=== PATIENT | female | born 1960 | race Caucasian/White ===

== ENCOUNTER → 2024-03-10 13:07 | Outpatient (REF) | payer BC, SELFPAY | LOC: HWWDC 13:07 | PROVIDERS: ATTENDING PHYSICIAN Internal Medicine | DX: Z12.31 Encounter for screening mammogram for malignant neoplasm of breast (principal) | CPT/HCPCS: 77063; 77067 ==

== ENCOUNTER → 2024-04-26 13:09 | Outpatient (REF) | payer BC, SELFPAY | LOC: RAD 13:09 | PROVIDERS: ATTENDING PHYSICIAN Internal Medicine | DX: M25.551 Pain in right hip (principal); M25.552 Pain in left hip; M54.40 Lumbago with sciatica, unspecified side | CPT/HCPCS: 72110; 73523 ==

== ENCOUNTER → 2024-06-21 12:31 | Outpatient (REF) | payer BC, SELFPAY ==
[2024-06-21 13:25] LABS: % Basophils 0.8 % (0-2); % Eosinophils 1.9 % (0-6); % Immature Granulocytes 0.2 % (0-0.5); % Lymphocytes 27.9 % (20.5-51.1); % Monocytes 8.5 % (1.7-9.3); % Neutrophils 60.7 % (42.2-75.2); Absolute Basophils 0.1 10^3/uL (0-0.2); Absolute Eosinophils 0.1 10^3/uL (0-0.7); Absolute Lymphocytes 1.7 10^3/uL (1.2-3.4); Absolute Monocytes 0.5 10^3/uL (0.1-0.6); Absolute Neutrophils 3.8 10^3/uL (1.4-6.5); Hematocrit 32.3 % (37.0-47.0); Mean Corp Hgb Conc. 34.1 g/dL (33.0-37.0); Mean Corpuscular Hgb 34.1 pg (27.0-31.0); Nucleated Red Blood Cells % 0 %; Platelet Count 231 10^3/uL (130-400); Red Blood Cell Count 3.23 10^6/uL (4.20-5.40); Red Cell Dist. Width 13.1 % (11.5-14.5); White Blood Cell Count 6.2 10^3/uL (4.8-10.8)
[2024-06-21 14:00] LABS: Blood Urea Nitrogen 15 mg/dl (7-17); Calcium 10.4 mg/dl (8.4-10.2); Carbon Dioxide 25 mmol/L (22-30); Chloride 100 mmol/L (98-107); Glucose 85 mg/dl (70-99); Potassium 4.8 mmol/L (3.5-5.1); Sodium 137 mmol/L (135-145); eGFR > 60.00
== END ==
LOC: REG 12:31
PROVIDERS: ATTENDING PHYSICIAN Specialist; FAMILY PHYSICIAN Internal Medicine
DX: Z01.818 Encounter for other preprocedural examination (principal)
CPT/HCPCS: 36415; 80048; 85025; 93005

== ENCOUNTER → 2024-09-27 12:30 | Outpatient (REF) | payer BC, SELFPAY ==
[2024-09-27 13:53] LABS: % Basophils 0.6 % (0-2); % Eosinophils 1.3 % (0-6); % Immature Granulocytes 0.3 % (0-0.5); % Lymphocytes 21.4 % (20.5-51.1); % Monocytes 11.1 % (1.7-9.3); % Neutrophils 65.3 % (42.2-75.2); Absolute Eosinophils 0.1 10^3/uL (0-0.7); Absolute Lymphocytes 1.5 10^3/uL (1.2-3.4); Absolute Monocytes 0.8 10^3/uL (0.1-0.6); Absolute Neutrophils 4.6 10^3/uL (1.4-6.5); Hematocrit 34.9 % (37.0-47.0); Hemoglobin 11.8 g/dL (12.0-16.0); Mean Corp Hgb Conc. 33.8 g/dL (33.0-37.0); Mean Corpuscular Hgb 34.3 pg (27.0-31.0); Mean Corpuscular Volume 101.5 fL (81.0-99.0); Mean Platelet Volume 9.4 fL (7.4-10.4); Nucleated Red Blood Cells % 0 %; Platelet Count 258 10^3/uL (130-400); Red Blood Cell Count 3.44 10^6/uL (4.20-5.40); Red Cell Dist. Width 12.6 % (11.5-14.5)
[2024-09-27 14:34] LABS: Blood Urea Nitrogen 14 mg/dl (7-17); Calcium 10.8 mg/dl (8.4-10.2); Carbon Dioxide 27 mmol/L (22-30); Chloride 99 mmol/L (98-107); Glucose 96 mg/dl (70-99); Potassium 5.1 mmol/L (3.5-5.1); Sodium 136 mmol/L (135-145); eGFR > 60.00
== END ==
LOC: REG 12:30
PROVIDERS: ATTENDING PHYSICIAN Specialist; FAMILY PHYSICIAN Internal Medicine
DX: Z01.818 Encounter for other preprocedural examination (principal)
CPT/HCPCS: 36415; 80048; 85025

== ENCOUNTER 2025-05-31 14:03 | Inpatient (IN) | payer BC, SELFPAY ==
[2025-05-30] VITALS (18 sets, daily range): BP systolic 118–207; BP diastolic 78–139; BMI 29.1
--- NOTE | 2025-05-30 13:14 | ED.GENMED ---
History of Present Illness
<Paola Greenwood PA-C - Last Filed: 05/30/25 17:15>
General
Chief Complaint: Fall
Source: patient and spouse
Exam Limitations: none
Time Seen by Provider: 05/30/25 12:44
History of Present Illness
History of Present Illness:
64yoF with a history of hypertension presenting with her for evaluation after a fall last night. Patient was walking in the middle of the night to go to the bathroom. Instead of making a right, she made a left and fell down 13 steps. She
believes she hit her head but did not lose consciousness. Patient has some abrasions in the right elbow but otherwise denies any injuries from the fall. Patient has been having frequent falls over the past 2 months. She has fallen about 6x since
then. She attributes her falls to trouble with her vision. She is having trouble with depth perception in her vision. She denies any blurred vision, photophobia, visual field cuts. Patient also reports vomiting in the mornings for the past few
weeks. She states she wakes up with a bunch of phlegm in the back of her throat. Symptoms seem to improve throughout the day but she is eating much less due to this.
Phy Exam
<Paola Greenwood PA-C - Last Filed: 05/30/25 17:15>
General Physical Exam
General Presentation: well appearing and no apparent distress
General age: appears stated age
General Skin: warm and dry
General Habitus: normal
General Mental: alert
ENT Exam
ENT Exam: TM's normal and normocephalic
Eye Exam
Eye Exam: PERRL, EOMI, conjunctiva normal, visual mccray normal and other (PERRL. EOMs are are intact although eye movement seems delayed.)
Cardiovascular Exam
Cardiovascular Exam: regular rate/rhythm
Pulmonary Exam
Pulmonary Exam: lungs clear, no respiratory distress, no rales, chest non tender, no crackles and no rhonchi
Neurological Exam
Neurological Exam: alert, no motor deficits and speech normal
[place] Coma Scale
Eye Opening: Spontaneous
Verbal Response: Oriented
Motor Response: Obeys Commands
GCS Total Score: 15
Skin Exam
Skin Exam: normal color, warm/dry and other (R elbow abrasions)
Psychiatric Exam
Psychiatric Exam: normal mood/affect
Course
<Paola Greenwood PA-C - Last Filed: 05/30/25 17:15>
Orders/Labs/Results
Orders:
Orders
05/30/25 13:09
CT Head W/o Iv Contrast Urgent
Comment:
Reason For Exam: frequent falls, visual disturbance
0.9% Sodium Chloride 1000 ml [Nss] 1,000 ml IV BOLUS
05/30/25 13:16
Alcohol Urgent
C-Reactive Protein Urgent
Comment: ADD ON
Complete Blood Count/With Diff Urgent
Comprehensive Metabolic Panel Urgent
Erythrocyte Sed Rate Urgent
Comment: ADD ON
Magnesium Urgent
Comment: ADD ON
Phosphorus Urgent
Comment: ADD ON
TSH Reflex To Free T4 Urgent
Comment: ADD ON
05/30/25 13:54
NEUROLOGY CONSULT Urgent
Consulting Provider: Godwin Matthew
Was physician already notified: Yes
05/30/25 14:17
Potassium Chloride [KCl] 40 meq PO NOW STA
05/30/25 14:37
Add On- LAB Urgent
Tests Added?: ESR, CRP, Alcohol, TSH Reflex to Free T4
05/30/25 14:53
CT Head & Neck Angio W/wo IV Routine
Comment:
Reason For Exam: stenosis
MR Brain W/o & With Contrast Routine
Comment:
Reason For Exam: PRES
Recent pill cam endoscopy?: No
05/30/25 14:58
NIH Stroke Scale As Directed
Directions: Per protocol
Comment: Please until order to stop
05/30/25 15:04
Add On- LAB Urgent
Tests Added?: mag, phos
EKG [Electrocardiogram (*1)] Urgent
Reason for Study: Hypertension, Benign
05/30/25 15:28
Urine Drug Abuse Screen Routine
Date Specimen was Collected: 05/30/25
Time Specimen was Collected: 14:58
05/30/25 15:34
Admit/Transfer Patient As Directed
Co-Sign Provider:
Level of Care: Observation services
Assign to:: Telemetry
Physician / Group: Krystal Rosenthal
Diagnosis: posterior reversible encephalopathy syndrome, hypokalemia, transaminitis
Reason for Telemetry: CVA/TIA
Date to Stop Telemetry: 06/02/25
Time to Stop Telemetry: 11:00
PRN Pain Medication Management As Directed
May give lesser potent ordered pain med per pt: Yes
preference::
Protocol:: Medication orders for pain may be administered in a
manner that supports deferring to patient preference
when the pt is:
- Requesting an ordered lesser potent pain medication.
Least to most potent pain medications are defined
as: acetaminophen < NSAID < tramadol < opioids
(morphine, oxycodone, hydromorphone).
- Requesting a lesser dose of the same medication IF
ORDERED.
- Requesting a less intrusive route of administration
if both routes are prescribed by the provider (PO <
IV).
05/30/25 15:36
Code Status As Directed
Resuscitation Status: Do not resuscitate
Reached after discussion with pt or family/Healthcare POA: Yes
Decision communicated with: patient and spouse
DNR Bracelet Application ONCE
05/30/25 15:43
Neurological Checks As Directed
Frequency: Per unit guidelines
05/30/25 16:00
Thiamine HCl [Vitamin B1] 100 mg PO DAILY
06/02/25 11:00
DC Protocol for Telemetry ONCE
Abnormal Lab Results
05/30/25
13:16
RBC 3.35 L 10^6/uL
(4.20-5.40)
Hgb 11.3 L g/dL
(12.0-16.0)
Hct 33.5 L %
(37.0-47.0)
MCV 100.0 H fL
(81.0-99.0)
MCH 33.7 H pg
(27.0-31.0)
Absolute Lymphs (auto) 0.7 L 10^3/uL
(1.2-3.4)
Absolute Monos (auto) 0.7 H 10^3/uL
(0.1-0.6)
Immature Gran % 0.6 H %
(0-0.5)
Lymphocytes % 12.6 L %
(20.5-51.1)
Monocytes % 14.3 H %
(1.7-9.3)
Potassium 3.3 L mmol/L
(3.5-5.1)
Chloride 97 L mmol/L
(98-107)
Magnesium 1.3 L mg/dl
(1.6-2.3)
Total Bilirubin 1.5 H mg/dl
(0.2-1.3)
AST 146 H U/L
(14-36)
ALT 69 H U/L
(0-35)
Alkaline Phosphatase 151 H U/L
(38-126)
C-Reactive Protein 26.40 H mg/L
(0.0-10.00)
05/30/25 13:16
05/30/25 13:16
Vital Signs
Initial and Last Documented VS:
Initial Vital Signs
Temp Pulse Resp BP Pulse Ox
99.1 F 88 18 180/118 97
05/30/25 12:05 05/30/25 12:05 05/30/25 12:05 05/30/25 12:05 05/30/25 12:05
Last Documented Vital Signs
Temp Pulse Resp BP Pulse Ox
99.1 F 86 27 120/109 93
05/30/25 12:05 05/30/25 15:00 05/30/25 15:00 05/30/25 15:00 05/30/25 15:00
<Shelly West MD - Last Filed: 05/30/25 15:24>
Orders/Labs/Results
Orders:
Orders
05/30/25 13:09
CT Head W/o Iv Contrast Urgent
Comment:
Reason For Exam: frequent falls, visual disturbance
0.9% Sodium Chloride 1000 ml [Nss] 1,000 ml IV BOLUS
05/30/25 13:16
Alcohol Urgent
C-Reactive Protein Urgent
Comment: ADD ON
Complete Blood Count/With Diff Urgent
Comprehensive Metabolic Panel Urgent
Erythrocyte Sed Rate Urgent
Comment: ADD ON
Magnesium Urgent
Comment: ADD ON
Phosphorus Urgent
Comment: ADD ON
TSH Reflex To Free T4 Urgent
Comment: ADD ON
05/30/25 13:54
NEUROLOGY CONSULT Urgent
Consulting Provider: Godwin Matthew
Was physician already notified: Yes
05/30/25 14:17
Potassium Chloride [KCl] 40 meq PO NOW STA
05/30/25 14:37
Add On- LAB Urgent
Tests Added?: ESR, CRP, Alcohol, TSH Reflex to Free T4
05/30/25 14:53
CT Head & Neck Angio W/wo IV Routine
Comment:
Reason For Exam: stenosis
MR Brain W/o & With Contrast Routine
Comment:
Reason For Exam: PRES
Recent pill cam endoscopy?: No
05/30/25 14:58
NIH Stroke Scale As Directed
Directions: Per protocol
Comment: Please until order to stop
05/30/25 15:04
Add On- LAB Urgent
Tests Added?: mag, phos
EKG [Electrocardiogram (*1)] Urgent
Reason for Study: Hypertension, Benign
05/30/25 15:28
Urine Drug Abuse Screen Routine
Date Specimen was Collected: 05/30/25
Time Specimen was Collected: 14:58
05/30/25 15:34
Admit/Transfer Patient As Directed
Co-Sign Provider:
Level of Care: Observation services
Assign to:: Telemetry
Physician / Group: Krystal Rosenthal
Diagnosis: posterior reversible encephalopathy syndrome, hypokalemia, transaminitis
Reason for Telemetry: CVA/TIA
Date to Stop Telemetry: 06/02/25
Time to Stop Telemetry: 11:00
PRN Pain Medication Management As Directed
May give lesser potent ordered pain med per pt: Yes
preference::
Protocol:: Medication orders for pain may be administered in a
manner that supports deferring to patient preference
when the pt is:
- Requesting an ordered lesser potent pain medication.
Least to most potent pain medications are defined
as: acetaminophen < NSAID < tramadol < opioids
(morphine, oxycodone, hydromorphone).
- Requesting a lesser dose of the same medication IF
ORDERED.
- Requesting a less intrusive route of administration
if both routes are prescribed by the provider (PO <
IV).
05/30/25 15:36
Code Status As Directed
Resuscitation Status: Do not resuscitate
Reached after discussion with pt or family/Healthcare POA: Yes
Decision communicated with: patient and spouse
DNR Bracelet Application ONCE
05/30/25 15:43
Neurological Checks As Directed
Frequency: Per unit guidelines
05/30/25 16:00
Thiamine HCl [Vitamin B1] 100 mg PO DAILY
06/02/25 11:00
DC Protocol for Telemetry ONCE
Abnormal Lab Results
05/30/25
13:16
RBC 3.35 L 10^6/uL
(4.20-5.40)
Hgb 11.3 L g/dL
(12.0-16.0)
Hct 33.5 L %
(37.0-47.0)
MCV 100.0 H fL
(81.0-99.0)
MCH 33.7 H pg
(27.0-31.0)
Absolute Lymphs (auto) 0.7 L 10^3/uL
(1.2-3.4)
Absolute Monos (auto) 0.7 H 10^3/uL
(0.1-0.6)
Immature Gran % 0.6 H %
(0-0.5)
Lymphocytes % 12.6 L %
(20.5-51.1)
Monocytes % 14.3 H %
(1.7-9.3)
Potassium 3.3 L mmol/L
(3.5-5.1)
Chloride 97 L mmol/L
(98-107)
Magnesium 1.3 L mg/dl
(1.6-2.3)
Total Bilirubin 1.5 H mg/dl
(0.2-1.3)
AST 146 H U/L
(14-36)
ALT 69 H U/L
(0-35)
Alkaline Phosphatase 151 H U/L
(38-126)
C-Reactive Protein 26.40 H mg/L
(0.0-10.00)
05/30/25 13:16
05/30/25 13:16
Vital Signs
Initial and Last Documented VS:
Initial Vital Signs
Temp Pulse Resp BP Pulse Ox
99.1 F 88 18 180/118 97
05/30/25 12:05 05/30/25 12:05 05/30/25 12:05 05/30/25 12:05 05/30/25 12:05
Last Documented Vital Signs
Temp Pulse Resp BP Pulse Ox
99.1 F 86 27 120/109 93
05/30/25 12:05 05/30/25 15:00 05/30/25 15:00 05/30/25 15:00 05/30/25 15:00
<Paola Greenwood PA-C - Last Filed: 05/30/25 17:15>
MDM/Problems Addressed
Differential Diagnosis Includes:
64yoF here after a fall down steps last night. Frequent falls over the past few weeks which she thinks is due to her vision. Reports trouble with 'depth perception' in vision. No diplopia, visual field cuts, dizziness. She is hypertensive with
otherwise stable vitals. EOMs are intact but eye movements seem delayed on exam. Differential diagnosis includes: CVA, brain mass, MS, postconcussive syndrome
Initial ED plan: Check CBC, CMP, and CT head.
<Paola Greenwood PA-C - Last Filed: 05/30/25 17:15>
*Pulse Oximetry
SaO2: 97
Oxygen Mode of Delivery: Room air
Patient hypoxic: no
*Critical Care Note
Total Time (30-74mins, 75-104mins- exclusive of procedures): Not Applicable
<Paola Greenwood PA-C - Last Filed: 05/30/25 17:15>
Update Note
Update Note:
CT head shows 'Pronounced hypoattenuation centered within the white matter of the parieto-occipital lobes. Findings are suggestive of posterior reversible encephalopathy syndrome (PRES).' Case discussed with neurology who evaluated her at bedside.
Neurology recommending BP control, CTA, and MRI. Patient admitted for further management.
ED Attending Note
<Paola Greenwood PA-C - Last Filed: 05/30/25 17:15>
-
Portions of this chart may have been created with voice recognition software.� Occasional wrong word or��sound alike� substitutions may have occurred due to the inherent limitations of voice recognition software.
<Shelly West MD - Last Filed: 05/30/25 15:24>
ED Attending Note
Patient seen and examined by attending physician: Yes
I performed the substantive portion of visit, reviewed & personally made and approve the management plan that is documented in note by myself or DESMOND.: Yes
ED Attending Note:
Patient appears comfortable and well. Patient has a nonfocal neurological exam. Patient is breathing comfortably.
Discharge Plan
Departure
Patient Disposition: Admit
Date of Disposition: 05/30/25
Time of Disposition: 15:10
Presentation/result/management discussed w/ accepting MD/DO: Hospitalist
Discharge Problem:
PRES (posterior reversible encephalopathy syndrome)
Interventions
Interventions:
*Risk Screen - Suicide Last Done: 05/30/25 12:05
*General Assessment Last Done: 05/30/25 13:19
*Neglect/Abuse Screening Last Done: 05/30/25 13:19
*ED- Fall Risk Assessment Last Done: 05/30/25 13:19
*ED COVID-19 Vaccine History Last Done: 05/30/25 13:19
*ED Influenza Vaccine History Last Done: 05/30/25 13:19
ED-Musculoskeletal Assessment Last Done: 05/30/25 13:19
ED- Neurological Assessment Last Done: 05/30/25 16:10
ED-Skin Assessment Last Done: 05/30/25 13:19
[2025-05-30] MEDS: NSS 1000 IV (13:15)
[2025-05-30 13:29] LABS: Hematocrit 33.5 % (37.0-47.0); Hemoglobin 11.3 g/dL (12.0-16.0); Mean Corp Hgb Conc. 33.7 g/dL (33.0-37.0); Mean Corpuscular Volume 100.0 fL (81.0-99.0); Nucleated Red Blood Cells % 0 %; Platelet Count 189 10^3/uL (130-400); Red Cell Dist. Width 12.7 % (11.5-14.5)
[2025-05-30 13:45] LABS: ALT (SGPT) 69 U/L (0-35); AST (SGOT) 146 U/L (14-36); Albumin 4.6 g/dl (3.5-5.0); Alkaline Phosphatase 151 U/L (38-126); Blood Urea Nitrogen 9 mg/dl (7-17); Calcium 8.9 mg/dl (8.4-10.2); Carbon Dioxide 27 mmol/L (22-30); Chloride 97 mmol/L (98-107); Glucose 89 mg/dl (70-99); Potassium 3.3 mmol/L (3.5-5.1); Sodium 138 mmol/L (135-145); Total Protein 7.6 g/dl (6.3-8.2); eGFR > 60.00
--- NOTE | 2025-05-30 14:31 | CON.NEURO4 ---
Addendum entered and electronically signed by Godwin Matthew MD 05/31/25 10:37:
Studies reviewed.
I have personally examined the patient. I reviewed and agree with the HOSPITAL ADMINISTRATOR's Note.
My addenda:
Awake, alert, interactive. No acute distress.
Speech intact.
Follows 2-step requests w/o difficulty. No tremor.
Extra-ocular movements grossly intact.
Facial movements full and symmetric. Hearing intact to normal conversational volume.
Normal UE movements bilaterally.
Neck: full ROM.
Chest: no dyspnea
Heart: no JVD
Ext: (-) Clubbing, (-) Cyanosis, (-) Edema
IMPRESSIONS/RECOMMENDATIONS:
Abrupt onset of gait difficulty, depth perception difficulty and falling with CT of the head suggesting posterior reversible encephalopathy syndrome
Differential diagnosis for this is inclusive of accelerated hypertension, alcoholism, underlying structural abnormality
Goal of normotension
Initiate thiamine replacement
MRI of brain with and without contrast
CTA head and neck
D/W patient / family
All questions answered.
Will continue to follow patient.
Original Note:
Consultation - Neurology 4
-
CONSULTING PHYSICIAN: Godwin Matthew MD
REFERRING PHYSICIAN: ER/Paola Greenwood PA-C
DICTATED BY: JAZZY Lozano
DATE/TIME OF REQUEST: 05/30/25
DATE/TIME OF CONSULTATION: 05/30/25
Reason for Consultation: Frequent falls, visual disturbance
History of Present Illness:
This is a 64-year-old left-handed female who has presented to the hospital with report of a several month history of gait difficulty, depth perception difficulty, and frequent falls including a fall down the stairs last night. Patient reports that
in January 2025 she had a bilateral eye infection and was placed on two antibiotics by ophthalmology Dr. Colon at [facility]. She notes that her depth perception seemed off at that time and she had one fall in January, but when she followed-up with
Dr. Colon her vision was 20/20. Then about two months ago she started to be unsteady while standing, requiring her to hold onto furniture or curran to maintain her balance while standing. She began falling again at that time and reports that both
legs have felt weak. She notes that when she falls she is typically tripping over her feet and can fall in any direction. Over the past two weeks she has fallen 5-6 times. She reports mild dizziness prior to falling. Last night, she fell down her
basement stairs, which prompted her to come to the ER today (05/30/25) for evaluation. Blood pressure in the ER has been elevated to 198/95. CT head was obtained and is suggestive of pronounced hypoattenuation within the white matter of the
parieto-occipital lobes supportive of posterior reversible encephalopathy syndrome (PRES).
She also notes that for the past two months she has had an excessive amount of phlegm in her throat mostly in the morning. She has had no appetite and eating normal amounts has been making her vomit. She completed oral antibiotics for a sinus
infection with no improvement in her phlegm. She denies any headaches, speech/swallow difficulty, and numbness. She does note that her blood pressure has been running on the 'high side.' She reports drinking about 3 alcoholic beverages daily
chronically.
Past Medical History: HTN, HLD, squamous cell carcinoma
Surgical History: B/L THR, tonsillectomy, b/l cataract removal.
Family History: Reviewed and noncontributory.
Social History: Former smoker. 3 drinks of alcohol per day chronically. Denies illicit drug use.
Allergies: Sulfa.
Home Medications: See below.
Review of Symptoms:
Patient denies any fever, headache, chest pain, shortness of breath, or symptoms.
�Per the HPI.�All systems are reviewed negative except above.
Physical Exam:
The patient is afebrile, abdomen is nondistended, breathing is unlabored, skin is warm and dry, no edema.
NIH Stroke Scale:
I performed the NIH stroke scale on the patient on 05/30/25 at 1445. The patient scored 0 points on the NIH stroke scale assessment, which were assigned as follows: See below.
Neurologic Examination:
The patient is awake, alert and oriented x 3. She is able to follow commands and answer questions appropriately. There is no aphasia or dysarthria. On cranial nerve assessment, pupils are 3 mm bilateral, round and reactive to light and
accommodation. Visual hensley are full. Extraocular movements are intact but saccades are extremely slow. Facial sensations are intact and bilaterally symmetrical, there is no facial asymmetry. Hearing is intact bilaterally to normal conversation
volume. Tongue palate and uvula are midline. Sternocleidomastoid strengths are full bilaterally. Motor strengths are 5/5 bilateral upper and lower extremities on medical research [place] scale. There is no drift or involuntary movement noted. Deep
tendon reflexes are 2+ bilateral upper and lower extremities and Babinski is absent bilaterally. There was no extinction noted on double simultaneous stimulation. Coordination is intact by finger to nose bilaterally.
Lab Results: See below.
Neuro Imaging:
1. CT Head 05/30/25: Pronounced hypoattenuation centered within the white matter of the parieto-occipital lobes. 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 Mild cerebral atrophy and mild small vessel change.
Differentials for the patient's presentation include:
1. Gait dysfunction, frequent falls, visual disturbance; CT head imaging is supportive of PRES.
2. Hypertensive urgency.
3. Chronic daily alcohol use.
4. Recent bilateral eye infection.
Patient has the following risk factors for their symptoms: Uncontrolled HTN, recent eye infection, HLD, chronic alcohol usage.
Recommendations:
-MRI brain w/ and w/o contrast pending.
-CTA head/neck pending.
-Goal normotension.
-Initiate thiamine 100mg PO daily.
-NIHSS and neurological checks per unit guidelines.
-DVT prophylaxis.
-PT/OT evaluations.
Discussed patient care with: Dr. Matthew, the patient, patient's spouse
Vital Signs and Labs
-
Vital Signs and Labs:
Vital Signs
Temp Pulse Resp BP Pulse Ox
99.1 F 82 23 120/78 96
05/30/25 12:05 05/30/25 14:00 05/30/25 14:00 05/30/25 14:00 05/30/25 14:00
Lab Results
05/30/25 13:16
05/30/25 13:16
Sodium 138 mmol/L (135-145) 05/30/25 13:16
Potassium 3.3 mmol/L (3.5-5.1) L 05/30/25 13:16
BUN 9 mg/dl (7-17) 05/30/25 13:16
Glucose 89 mg/dl (70-99) 05/30/25 13:16
Calcium 8.9 mg/dl (8.4-10.2) 05/30/25 13:16
NIH Stroke Score
Subsequent NIH Scale
Date of Subsequent NIH Scale: 05/30/25
Time of Subsequent NIH Scale: 14:45
NIH Stroke Score
Level of Consciousness: 0 - Alert
LOC Questions: 0-Answers both correctly
LOC Commands: 0-Performs both correctly
Best Horizontal Gaze: 0-Normal
Visual Hensley: 0=Normal, no visual loss
Facial Palsy: 0=Normal, symmetrical
Motor - Right Arm: 0=No drift 10 seconds
Motor - Left Arm: 0=No drift 10 seconds
Motor - Right Le-No drift 5 seconds
Motor - Left Le-No drift 5 seconds
Limb Ataxia: 0-Absent
Sensation: 0-Normal
Best Language: 0-No aphasia
Dysarthria: 0-Normal
Extinction and Inattention: 0-No abnormality
NIH Total Score:: 0
Modified Digna (mRS) Score
Modified Maribel Scale (mRS): Slight disability. Able to look after own affairs.
Score: 2
--- NOTE | 2025-05-30 14:56 | HPS.HSE ---
Addendum entered and electronically signed by Krystal Rosenthal MD 05/30/25 16:47:
This is an addendum to the H&P written by Anika Fernandes on 05/30/2025. �Patient seen and examined independently with JOY OPERATOR.
64-year-old female past medical history of hyperlipidemia, labile hypertension, chronic anemia, teary eyes, presenting with fall last night. �Fell down 13 steps. �Possibly hit her head. �Some abrasions of right elbow. �Frequent falls over the past 2
months. �Difficulty with depth perception and vision but no vision loss or blurry vision. �Also vomiting of some phelgm daily.
Patient drinks up to 3 drinks per day.
Vital signs show blood pressure up to 197/97 but spontaneously came down to 120/109.
Labs shows stable anemia 11.3. �Potassium 3.3. �Mild transaminitis.
CT head shows pronounced hypoattenuation within the white matter of the parieto-occipital lobes. �Findings are suggestive of posterior reversible encephalopathy syndrome.
Patient with findings suggestive of PRES syndrome with hypertensive urgency. �No neurological symptoms apart from dysfunction in depth perception. �Blood pressure has been labile so as needed labetalol with goal blood pressure under 140 systolic.
check CTA head and neck, MRI brain. �Neurology consulted.
Alcohol withdrawal protocol. �Thiamine and folate. Alcohol withdrawal protocol.�
Hypokalemia possibly from alcohol use. �Potassium repleted. �Check magnesium level.
Transaminitis secondary to alcohol use.
Original Note:
Family Physician
-
Family Physician:
Chief Complaint
-
post fall
History of Present Illness
Patient is a 64-year-old female with past medical history significant for hypertension and hyperlipidemia who presented to [facility] ED for evaluation post fall down flight of stairs. Patient reports that she has been having depth perception changes for
past 2 months resulting in falls. Generally fall occurs when she misses a step from the depth perception being off. She reports getting up last night to go to the bathroom and she turned wrong direction that resulted in her falling down an entire
flight of stairs (13 steps). She denies any loss of consciousness. Patient denies any dizziness, blurred vision, photophobia or visual field cuts. Patient also notes that since noticing depth perception changes she has also had increased phlegm
production with nausea and emesis in the morning of phlegm only.
Medical History
Past Medical History
Past Medical History: Reports Other
Additional Past Medical History:
hypertension
hyperlipidemia
depression
squamous cell skin ca
Past Surgical History: Reports Other
Additional Past Surgical History:
squamous cell skin ca lip-surgical removal (1996)
Tonsillectomy
cataract removal- bilateral 04/2024
Right JONATHAN SDS, DOS 07.13.2024 CBB
Left JONATHAN CBB 10/12/24
Social History
Tobacco: Non-smoker
Alcohol: Daily (2-3 drinks per day )
Drug: None
Living: With Family
Family History
Family History: Not pertinent
Allergies / Home Medications
Allergies reflects when Allergies were last updated in [employer].
Home Medications with original date entered in [employer]
Allergy/Medication List:
Allergies
Allergy/AdvReac Type Severity Reaction Status Date / Time
Sulfa (Sulfonamide Allergy Rash Verified 05/30/25 12:05
Antibiotics)
Home Medications
atenolol 50 mg tablet 50 mg PO BID 05/30/25
atorvastatin 20 mg tablet 20 mg PO HS 05/30/25
escitalopram oxalate 10 mg tablet 10 mg PO DAILY 05/30/25
valsartan 320 mg tablet 320 mg PO DAILY 05/30/25
Review of Systems
-
History Source: Patient
Constitutional: Denies Fever or Chills
EENT: Reports Other (depth perception off ); Denies Sore Throat or Mouth Pain
Respiratory: Denies Cough, Hemoptysis or Trouble Breathing
Cardiac: Denies Chest Pain, Diaphoresis, Palpitations or Syncope
Abdomen/GI: Reports Vomiting (morning with phlegm ); Denies Abdominal Pain, Nausea or Diarrhea
: Denies Dysuria, Frequency or Urgency
Musculoskeletal: Denies Joint Pain
Skin: Denies Rash
Neurological: Reports Other (depth perception off ); Denies Dizzy, Headache, Weakness or Numbness
Endocrine: Denies Polyuria or Polydipsia
Hematologic/Lymphatic: Denies Bleeding
Physical Exam
Vital Signs
Vital Signs
Temp Pulse Resp BP Pulse Ox
99.1 F 88 26 197/97 94
05/30/25 12:05 05/30/25 14:45 05/30/25 14:45 05/30/25 14:41 05/30/25 14:45
Physical Exam
General: Well Developed, Well Nourished, No Apparent Distress, Comfortable, Conversant and Obese
HEENT: NormoCephalic, Moist mucous membranes, PERRLA, Nose Appears Normal and Ears Appear Normal
Respiratory: Clear and Non Labored Respirations
Cardiac: Regular Rhythm
GI: Soft, Non Tender, Non Distended and Normal Bowel Sounds
Musculoskeletal: No Clubbing, No Cyanosis and No Edema
Skin: Warm and IV/Catheter Site
Neuro: Awake, AO x 3, No Motor Deficits, Nonfocal/grossly intact and Cranial Nerves Intact (II-XII); No Slurred Speech, Facial Droop, Tremors or Sedated
Psych: Calm and Intact Judgment/Insight
Laboratory Results
-
05/30/25 13:16
05/30/25 13:16
Laboratory Results
Total Bilirubin 1.5 mg/dl (0.2-1.3) H 05/30/25 13:16
AST 146 U/L (14-36) H 05/30/25 13:16
ALT 69 U/L (0-35) H 05/30/25 13:16
Alkaline Phosphatase 151 U/L (38-126) H 05/30/25 13:16
Data Reviewed
-
CT Scan: Report Reviewed by me (Head: 1. Pronounced hypoattenuation centered within the white matter of the parieto-occipital lobes. 2. 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 3. Mild cerebral atrophy and mild
small vessel change.)
Lab Data: Labs Reviewed by me (K+ 3.3, Tot bili 1.5, AST 146, ALT 69, Alk Phos 151)
Impression/Plan
-
IMPRESSION/PLAN:
#fall 2/2 mechanical fall vs. neurological involvement
#PRES posterior reversible encephalopathy syndrome
Head CT: 1. Pronounced hypoattenuation centered within the white matter of the parieto-occipital lobes.
2. 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
3. Mild cerebral atrophy and mild small vessel change.
- Admit to telemetry
- Consult Neurology
- Check Head/Neck CTA
- Check Brain MRI
- maintain normotension, IV Labetalol PRN
#hypokalemia
K+ 3.3
- repleted in ED
- monitor BMP
#transaminitis
Tot bili 1.5, AST 146, ALT 69, Alk Phos 151
daily drinker of 2-3 drinks per day
- MSAS protocol
#hypertension
- continue atenolol and valsartan
#hyperlipidemia
- continue atorvastatin
#depression
- continue escitalopram
Code status: DNR
DVT prophylaxis: SCDs
[2025-05-30] MEDS: KCL 40 MEQ PO (14:59)
[2025-05-30] MEDS: VITAMIN B1 100 MG PO (15:09)
--- NOTE | 2025-05-30 16:07 | CM ---
chart reviewed . Spoke with patient and at ED bedside
OBS form reviewed and left with patient and
Lives in [facility] with 1 [facility] Independent with ADLs
no DME
PCP Dr. Niesha Liu
RX [facility] on [address] [place]
no hx of VN nor SNF
DCP is to go back home
can drive
CM will continue to follow up for any dcp needs
[2025-05-30 16:22] LABS: Magnesium 1.3 mg/dl (1.6-2.3)
[2025-05-30 16:25] LABS: C-Reactive Protein 26.40 mg/L (0.0-10.00)
--- NOTE | 2025-05-30 19:20 | PTCARENOTE ---
Pt arrived from Ed via stretcher, oob x1 to bed with RW. p/w left eye field cut, Pt states 'I have a blind spot.' aaox3, cooperative. oriented to room. call noguera within reach.
[2025-05-30] MEDS: LIPITOR 20 MG PO (21:06)
[2025-05-30] MEDS: TENORMIN 50 MG PO (21:07)
[2025-05-30] MEDS: THIAMINE INJECTION 200 MG IV (21:07)
[2025-05-30 21:37] LABS: APTT 27.3 Sec (23.4-35.0); INR 1.03; PT 13.8 Sec (11.4-14.6)
[2025-05-30 21:44] LABS: GGTP 652 U/L (12-43)
[2025-05-31] VITALS (58 sets, daily range): BP systolic 102–209; BP diastolic 60–189; PULSE 2–85
[2025-05-31] MEDS: TRANDATE 10 MG IV ×4 (00:07→16:49)
[2025-05-31] MEDS: APRESOLINE 10 MG IV (02:45)
[2025-05-31] MEDS: MAGNESIUM SULFATE 50 IV (02:46)
[2025-05-31 07:54] LABS: Blood Urea Nitrogen 10 mg/dl (7-17); Calcium 8.7 mg/dl (8.4-10.2); Carbon Dioxide 21 mmol/L (22-30); Chloride 96 mmol/L (98-107); Estimated Creatinine Clearance 81 ml/min; Glucose 109 mg/dl (70-99); Magnesium 1.9 mg/dl (1.6-2.3); Potassium 3.4 mmol/L (3.5-5.1); Sodium 131 mmol/L (135-145); eGFR > 60.00
[2025-05-31 08:23] LABS: Glucose - Point of Care 143 mg/dl (70-99)
--- NOTE | 2025-05-31 08:36 | STATUS ---
SITUATION:patient with increased weakness on left side
BACKGROUND:
ASSESSMENT:NIH preformed- 8- see documentation, BP 184/106 rapid response and stroke alert called.
RECOMMENDATION:
--- NOTE | 2025-05-31 09:00 | TRANSFER ---
patient returned from CT scan- ICU nurse(rapid response team ) remained at bedside, along with Dr Chambers and Dr Wilson- orders for patient to be transferred to IMU- patient transferred in bed with belongings by rapid response team.
--- NOTE | 2025-05-31 09:05 | W.PN.NEURO.1 ---
Documented by User: Anika Hutchinson NP 05/31/25 11:37
Today's Communication / Plan
-
.
Neuro Assessment/Plan
Assessment
IMPRESSIONS/RECOMMENDATIONS:
Abrupt onset of gait difficulty, depth perception difficulty and falling with CT of the head suggesting posterior reversible encephalopathy syndrome, and report of chronic daily alcohol usage.
MRI brain demonstrates an enhancing lesion in the right parietal lobe, left parietao-occipital junction, and a third in the medial left parietal lobe associated with extensive vasogenic edema; uncertain if this is metastatic disease vs primary brain
neoplasm. Left-sided ataxia, gaze preference this morning consistent with seizure activity.
-CT head 05/30/25: Pronounced hypoattenuation centered within the white matter of the parieto-occipital lobes. 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 Mild cerebral atrophy and mild small vessel change.
-CTA head/neck 05/30/25: No evidence of acute vascular pathology. Incompletely imaged right lower lobe pleural-based mass consistent with malignancy until proven otherwise. Moderate mediastinal lymphadenopathy and several tiny bilateral upper lobe
pulmonary nodules suggesting metastatic disease. Significant bilateral parietal lobe vasogenic edema with mass effect and probable underlying masses likely metastatic disease considering the above findings. Multilevel degenerative disease.
Progressed at all levels Mild reversal of cervical spinal lordosis. This can be seen with spasm. New. Mild atrophy.
-MRI brain 05/30/25: 3 enhancing lesions as described, one centered in the posterior right parietal lobe, one at the left parieto-occipital junction, and a third small enhancing lesion within the posterior and medial left parietal lobe. Extensive
white matter edema within the parietal and occipital lobes, slightly greater on the right compared to the left. Findings very likely represents metastatic disease to the brain, somewhat unusual distribution. Other differential considerations would
seem to be significantly less likely. This would be an atypical appearance for abscesses, although could still be considered. Multifocal primary brain neoplasm such as glioblastoma multiforme could be considered.
Plan
-Provide a loading dose of levetiracetam x1 now. Continue levetiracetam 1000mg twice a day.
-Provide decadron 10mg x1 now.
-Provide lorazepam 1mg x1 now.
-Urgent EEG pending.
-MSAS protocol. Continue thiamine replacement.
-Oncology evaluation. Unclear that patient would be a candidate for neurosurgical intervention at this point.
-Neurological checks per unit guidelines. Okay to d/c NIHSS as this is not stroke.
-Seizure precautions.
Subjective/Objective
Subjective Data
Date of Service: May 31, 2025
Patient was last seen by nursing staff at her baseline at 0730. At 0745 she was noted to be more confused, her left arm was weak and ataxia, and she was neglecting her left side. NIHSS was 9 and a stroke alert was activated. CT head was obtained and
is negative for any acute changes from imaging on 05/30/25. On our neurological exam, her strength is improved in her left arm but it is severely ataxic, she has difficulty following commands with her left arm, left arm intermittently has a
semi-rhythmic medium amplitude tremor, and she has a left gaze preference concerning for seizure. She is not a candidate for TNK/IAT due to diffuse metastatic disease/vasogenic edema and concern for seizure producing symptoms. Her last drink of
alcohol was two days ago on 04/28/25 at night.
Objective Data
Vital Signs
Temp Pulse Resp BP Pulse Ox
98.7 F 97 18 179/106 95
05/31/25 02:23 05/31/25 04:36 05/31/25 02:23 05/31/25 04:52 05/31/25 02:23
Lab Results
05/30/25 13:16
05/31/25 06:32
PT 13.8 Sec (11.4-14.6) 05/30/25 21:15
INR 1.03 05/30/25 21:15
APTT 27.3 Sec (23.4-35.0) 05/30/25 21:15
Sodium 131 mmol/L (135-145) L 05/31/25 06:32
Potassium 3.4 mmol/L (3.5-5.1) L 05/31/25 06:32
BUN 10 mg/dl (7-17) 05/31/25 06:32
Glucose 109 mg/dl (70-99) H 05/31/25 06:32
Calcium 8.7 mg/dl (8.4-10.2) 05/31/25 06:32
Phosphorus 4.1 mg/dl (2.5-4.5) 05/30/25 13:16
Ur Buprenorphine Negative (Negative) 05/30/25 15:28
Patient Allergies
Sulfa (Sulfonamide Antibiotics) Allergy (Verified 05/30/25 12:05)
Rash
Review of Systems
-
History Source: Patient
EENT: Negative Blurry Vision or Decreased Vision
Neuro: Negative Dizzy, Headache, Weakness, Numbness, Ataxia, Tremors or Speech Problem
Physical Exam
-
General: Appears in Distress
Eyes: No Ptosis and PERRLA
HEENT: Normocephalic and Atraumatic
Neck: Full Range of Motion
Respiratory: No Dyspnea
GI: Non-distended
Extremities: No Clubbing, No Cyanosis and No Edema
Psych: Confused
Extended Neurological Exam
Mood & Affect: Anxious
Attention Span & Concentration: Awake, Alert, Interactive and Severe Difficulty with 2 Step Request
Memory: Reduced (AAO to person, hospital, month/year. next hol- , most recent holiday- )
Tremor: Amplitude (medium), Intermittent and At Rest
Speech: Quality Unremarkable, Quantity Unremarkable and Rate of Production Unremarkable
Cranial Nerve II: Left Eye: Pupillary Reactivity Unremarkable, Pupillary Size Unremarkable and Visual Hensley Intact
Cranial Nerve II: Right Eye: Pupillary Reactivity Unremarkable, Pupillary Size Unremarkable and Visual Hensley Intact
Cranial Nerves III, IV, : Extraocular Movement: Extraocular Movement Full in all Directions (there is a left gaze preference)
Cranial Nerve VII: Facial Symmetry: Normal Facial Symmetry
Cranial Nerve VIII: Hearing: Unremarkable Hearing to Normal Conversational Volume
Cranial Nerve XII: Tongue Protusion: Midline
Muscle Strength, Overall: Reduced on Left (LUE 4/5, LLE 5-/5)
Pronator Drift: Drift in Left Upper Extremity and Drift in Left Lower Extremity
Touch Sensation: Double Simultaneous Stimulation Unremarkable
Coordination: Zhsp-Zefa-Qzpu movements intact bilaterally; Negative Zefkfb-moyd-vjsbzk Testing Unremarkable (LUE ataxia)
Data Reviewed
-
CT-A: Report Reviewed and Image Reviewed
CT Head: Report Reviewed and Image Reviewed
MRI Head: Report Reviewed and Image Reviewed
EEG: Pending
Labs: Report Reviewed
Reviewed with: Physician and Patient
Medications
-
Active Medications
Generic Name Dose Route Start Last Admin
Trade Name Freq PRN Reason Stop Dose Admin
Atenolol 50 mg 05/30/25 20:00 05/30/25 21:07
Atenolol 50 Mg Tablet PO 06/27/25 19:59 50 mg
BID MICHAEL Administration
Atorvastatin Calcium 20 mg 05/30/25 22:00 05/30/25 21:06
Atorvastatin (Lipitor) 20 Mg Tablet PO 06/27/25 21:59 20 mg
HS MICHAEL Administration
Escitalopram Oxalate 10 mg 05/31/25 08:00
Escitalopram 10 Mg Tablet PO 06/28/25 07:59
DAILY MICHAEL
Folic Acid 1 mg 05/31/25 08:00
Folic Acid 1 Mg Tablet PO 06/28/25 07:59
DAILY MICHAEL
Folic Acid 1 mg/ Sodium 50.2 mls @ 200.8 mls/hr 05/30/25 19:21
Chloride IV 06/27/25 19:20
DAILYPRN PRN
if NPO
Labetalol HCl 10 mg 05/31/25 04:43 05/31/25 04:52
Labetalol Hcl 5 Mg/1 Ml (20 Mg/4 Ml) Injection IV 06/28/25 04:41 10 mg
Q4HPRN PRN Administration
SBP >140/DBP >90
Levetiracetam 4,000 mg 05/31/25 09:01
Levetiracetam (100 Mg/Ml) 500 Mg/5 Ml Vial IV 05/31/25 09:02
NOW STA
Lorazepam 1 mg 05/30/25 19:21
Lorazepam 1 Mg Tablet PO 06/27/25 19:20
Q2HPRN PRN
MSAS 5-7
Lorazepam 1 mg 05/30/25 19:21
Lorazepam 2 Mg/Ml Vial IV 06/27/25 19:20
Q1HPRN PRN
MSAS 8-11
Lorazepam 2 mg 05/30/25 19:21
Lorazepam 2 Mg/Ml Vial IV 06/27/25 19:20
Q1HPRN PRN
MSAS > 11
Lorazepam 1 mg 05/31/25 08:45
Lorazepam 2 Mg/Ml Vial IV 06/28/25 08:44
Q4HPRN PRN
seizure
Lorazepam 1 mg 05/31/25 10:00
Ativan 1 Mg Dose IV 05/31/25 10:01
ONCE ONE
Sodium Chloride 0 ml 05/30/25 19:21
Sodium Chloride 0.9% (Preservative Free) 10 Ml Vial IV 06/27/25 19:20
PRN PRN
To dilute IV Ativan
Protocol
Sodium Chloride 0 flush 05/30/25 20:00
Sodium Chloride 0.9% (Flush) Syringe IV 06/27/25 19:59
PER PROTOCOL MICHAEL
Sodium Chloride 0.5 ml 05/31/25 10:00
Nss (Pf) 10 Ml Vial For Ativan 1 Mg Dose IV 05/31/25 10:01
ONCE ONE
Thiamine HCl 200 mg 05/30/25 20:00 05/30/25 21:07
Thiamine (100 Mg/Ml) 2 Ml Vial IV 06/02/25 08:01 200 mg
Q12 MICHAEL Administration
Thiamine HCl 100 mg 06/02/25 20:00
Thiamine 100 Mg Tablet PO 06/30/25 19:59
BID MICHAEL
Valsartan 320 mg 05/31/25 08:00
Valsartan 160 Mg Tablet PO 06/28/25 07:59
DAILY MICHAEL
Home Medications
�Medication �Instructions �Recorded
atenolol 50 mg tablet 50 mg PO BID Blood Pressure 05/30/25
atorvastatin 20 mg tablet 20 mg PO HS High Cholesterol 05/30/25
escitalopram oxalate 10 mg tablet 10 mg PO DAILY Mental 05/30/25
Health/Anxiety
therapeutic multivitamin 1 tab PO DAILY Supplement 05/30/25
valsartan 320 mg tablet 320 mg PO DAILY Blood Pressure 05/30/25
NIH Stroke Score
Subsequent NIH Scale
Date of Subsequent NIH Scale: 05/31/25
Time of Subsequent NIH Scale: 08:30
NIH Stroke Score
Level of Consciousness: 0 - Alert
LOC Questions: 0-Answers both correctly
LOC Commands: 0-Performs both correctly
Best Horizontal Gaze: 0-Normal
Visual Hensley: 0=Normal, no visual loss
Facial Palsy: 0=Normal, symmetrical
Motor - Right Arm: 0=No drift 10 seconds
Motor - Left Arm: 2=Partial vs. gravity
Motor - Right Le-No drift 5 seconds
Motor - Left Le-Drift < 5 seconds
Limb Ataxia: 1-Present in one limb
Sensation: 0-Normal
Best Language: 1-Mild aphasia
Dysarthria: 0-Normal
Extinction and Inattention: 0-No abnormality
NIH Total Score:: 5

Documented by User: Godwin Matthew MD 05/31/25 12:17
NIH Stroke Score
NIH Stroke Score
NIH Total Score:: 5
[2025-05-31] MEDS: KEPPRA 4000 MG IV (09:09)
[2025-05-31] MEDS: ATIVAN 1 MG IV ×5 (09:15→12:14)
[2025-05-31] MEDS: NSS (PRESERVATIVE FREE) 0.5 ML IV (09:17)
[2025-05-31] MEDS: DECADRON 10 MG IV (09:18)
--- NOTE | 2025-05-31 09:25 | PTCARENOTE ---
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 Left visual gaze. Answering questions appropriately. Dr. Matthew & JAZZY at the bedside. 10mg IVP Decadron administered on arrival, then 1mg IVP Lorazepam and 4gm IVP Keppra as directed @ 0915.
Pt was informed of the plan of care. Seizure pads on the bed. Shorty after medication administration pt with her eyes closed. Left AC##18g flushed and patebn with god blood return. Right AC#20g flushed and patent.
--- NOTE | 2025-05-31 09:29 | W.PN.HOSP.TC ---
Addendum entered and electronically signed by Magalie Wilson MD 05/31/25 16:40:
Patient became hypoxic, sonorous, unresponsive. She was placed on BiPAP with improvement in her oxygen sat, however her mental status did not improve. ABG/CXR ordered. I consulted critical care Dr. Pereira for evaluation. As the patient was
unresponsive and no longer protecting her airway, he intubated her. Upgraded patient to ICU. Appreciate management.
Addendum entered and electronically signed by Magalie Wilson MD 05/31/25 13:00:
Re-examined patient, d/w RN and neurology. Pt is lethargic and still having seizures. Has received 4 doses IV ativan 1mg. Considered phenobarbital for possible alcohol withdrawal but had low MSAS prior to the ativan and attempting to avoid sedating
meds, so will hold off at this time. Cancel CTs until patient stable. Still protecting airway, will hopefully see some improvement in her seizures by tomorrow after dexamethasone and keppra.
Original Note:
Today's Communication/Plan
-
Stroke alert this morning, active seizure activity, moved to IMU
Assessment / Plan
Assessment / Plan
64F with HTN, HLD, EtOH use daily, P/W falls, decreased depth perception over several months.
Brain lesions with vasogenic edema
Active seizure activity, acute neurodeficits including left side weakness
Metastatic cancer versus primary GBM
Moved to IMU
Loaded with IV Keppra, IV Ativan, IV Decadron
N.p.o., ST eval
Close monitoring, as needed IV Ativan
Neurology consulted, discussed with Dr. Jaimes at bedside
CT chest/abdomen/pelvis ordered to locate primary. Had a mammogram last year that did not show any evidence of malignancy
Oncology consulted
HTN urgency
BP elevated, received multiple doses of IV meds overnight
Continue p.o. valsartan, give 1 dose IV labetalol now
Goal BP less than 180s
Alcohol use disorder
Transaminitis
3 drinks per day
Continue IV thiamine, continue folate, monitor for alcohol withdrawal, on protocol
HLD
Statin
Depression
Escitalopram
Hypokalemia
Replete with oral K
Hyponatremia
Mild, will monitor
DVT PPx
SCDs
DNR
Anticipated Discharge: > 48 hours
Subjective/Interval History
-
Date of Service: May 31, 2025
Stroke alert called at 823 this morning, NIH 7. On my arrival patient was being wheeled to [place], she was weak on her left side, dysmetria, left side gaze preference. She was awake/alert/following commands, protecting airway, speech was intact.
PERRLA, heart RRR, no murmur, lungs CTAB, abdomen soft/NT/ND/NABS. SBP 180s. Neuro team was at bedside. Upon return to floor, patient was noted to be shaking, concern for seizure activity. Orders were placed for IV dexamethasone, IV Ativan, IV
Keppra, patient was wheeled to IMU, and all of the meds were given.
90 min spent in patient care
Objective Data
-
Labs:
Laboratory Results
05/30/25 05/31/25
21:15 06:32
PT 13.8
INR 1.03
APTT 27.3
Sodium 131 L
Potassium 3.4 L
Chloride 96 L
Carbon Dioxide 21 L
BUN 10
Creatinine 0.6
Glucose 109 H
Calcium 8.7
Vital Signs:
Vital Signs
Temp Pulse Resp BP Pulse Ox
98.7 F 97 18 179/106 95
05/31/25 02:23 05/31/25 04:36 05/31/25 02:23 05/31/25 04:52 05/31/25 02:23
I&O
05/30/25 05/31/25 06/01/25
06:59 06:59 06:59
Intake Total 1010 / 1010
Balance 1010 / 1010
Review of Systems
-
Unable to obtain full review of systems at this time due to: Acuity
History Source: Patient
All other systems: Reviewed and negative
Physical Exam
-
General: Conversant and Other (Actively seizing)
HEENT: Moist Mucous Membranes and PERRLA
Respiratory: Clear to Auscultation; Negative Wheezes, Rales, Rhonchi or Accessory Resp Muscle Use
Cardiac: Regular Rhythm and S1/S2; Negative Murmur
GI: Soft, Nontender, Nondistended and Normal Bowel Sounds
Musculoskeletal: No Edema
Skin: Warm and Dry; Negative Rash or Ulcers
Neuro: Awake, Alert, Oriented (To self, hospital) and Other (Left arm/leg 3 out of 5 strength, yqrbii-[id number]-qvin dysmetria, RUE/RLE 5 out of 5 strength, shaking, left gaze preference)
Psych: Confused
Data Reviewed
-
CT Scan: Image personally visualized and interpreted, Report Reviewed by me, Discussed with Physician, Discussed with Nurse and Discussed with Patient
MRI: Image personally visualized and interpreted, Report Reviewed by me, Discussed with Physician, Discussed with Nurse and Discussed with Patient
Labs: Labs Reviewed by me and Discussed with Physician
Old Records: Reviewed
--- NOTE | 2025-05-31 10:29 | PTCARENOTE ---
Pt's son Phu is at the bedside. He was informed of the events this morning and why his mother is now in room 3357. Copies of the CT scan and MRI provided. Dr. Matthew and Dr. Wilson notified of this. Dr. Wilson given pt's 's Rafael's cell number
[phone].
[2025-05-31 11:06] LABS: ALT (SGPT) 55 U/L (0-35); AST (SGOT) 101 U/L (14-36); Albumin 4.1 g/dl (3.5-5.0); Alkaline Phosphatase 132 U/L (38-126); Total Protein 6.3 g/dl (6.3-8.2)
[2025-05-31] MEDS: TENORMIN PO (11:58)
--- NOTE | 2025-05-31 12:05 | PTCARENOTE ---
1mg IVP Lorazepam administered as ordered by Dr. Matthew. Her is aware of the plan. He went home at this time and will return.
--- NOTE | 2025-05-31 12:55 | CON.ONC ---
Consultation
-
Date Consultation Requested: 05/31/25
Date Consultation Performed: 05/31/25
Requesting Provider: Magalie Wilson MD
Performing Provider: Lisa Solis MD
Reason for Consultation: brain mets
Impression
Impression
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
lung/arron masses in the chest
Alcohol use, h/o remote smoking.
Plan
Plan
Dexamethasone 8mg IV q8hr
AEDs per neurology
Once stable from a neurologic perspective, needs CT CAP to evaluate for an underlying primary malignancy - suspect lung cancer
Biopsy and further w/u TBD as more results are obtained
Will follow along
Patient History
History of Present Illness
asked to see this patient with apparent metastatic cancer
She presented to the ER yesterday after fall down steps at home, in the setting of 2 months of progressive vision and balance changes, as well as morning nausea and weight loss. She has a h/o smoking, quit about 15 years ago, and regular alcohol
use.
Brain imaging showed three masses, with edema. CT neck revealed lung nodules and mediastinal adenopathy.
She had seizure activity this morning, and was given Dex 10mg IV x1, Keppra, Ativan, and started on continuous EEG.
and son at bedside, patient unable to give any history
Past-Medical/Surgical History
Past Medical History: Reports Other
Additional Past Medical History:
hypertension
hyperlipidemia
depression
squamous cell skin ca
Past Surgical History: Reports Other
Additional Past Surgical History:
squamous cell skin ca lip-surgical removal (1996)
Tonsillectomy
cataract removal- bilateral 04/2024
Right JONATHAN SDS, DOS 07.13.2024 CBB
Left JONATHAN CBB 10/12/24
Social History
Tobacco: Non-smoker
Alcohol: Daily (2-3 drinks per day )
Drug: None
Living: With Family
Family History
Family History: Not pertinent
Patient Medication
�Medication �Instructions �Recorded �Confirmed �Last Taken �Type
atenolol 50 mg tablet 50 mg PO BID Blood Pressure 05/30/25 05/30/25 05/29/25 History
atorvastatin 20 mg tablet 20 mg PO HS High Cholesterol 05/30/25 05/30/25 05/29/25 History
escitalopram oxalate 10 mg tablet 10 mg PO DAILY Mental 05/30/25 05/30/25 05/29/25 History
Health/Anxiety
therapeutic multivitamin 1 tab PO DAILY Supplement 05/30/25 05/30/25 05/29/25 History
valsartan 320 mg tablet 320 mg PO DAILY Blood Pressure 05/30/25 05/30/25 05/29/25 History
Active Medications
Generic Name Dose Route Start Last Admin
Trade Name Freq PRN Reason Stop Dose Admin
Atenolol 50 mg 05/30/25 20:00 05/31/25 11:58
Atenolol 50 Mg Tablet PO 06/27/25 19:59 Not Given
BID MICHAEL
Atorvastatin Calcium 20 mg 05/30/25 22:00 05/30/25 21:06
Atorvastatin (Lipitor) 20 Mg Tablet PO 06/27/25 21:59 20 mg
HS MICHAEL Administration
Escitalopram Oxalate 10 mg 05/31/25 08:00 05/31/25 11:58
Escitalopram 10 Mg Tablet PO 06/28/25 07:59 Not Given
DAILY MICHAEL
Folic Acid 1 mg 05/31/25 08:00 05/31/25 11:58
Folic Acid 1 Mg Tablet PO 06/28/25 07:59 Not Given
DAILY MICHAEL
Folic Acid 1 mg/ Sodium 50.2 mls @ 200.8 mls/hr 05/30/25 19:21
Chloride IV 06/27/25 19:20
DAILYPRN PRN
if NPO
Labetalol HCl 10 mg 05/31/25 04:43 05/31/25 04:52
Labetalol Hcl 5 Mg/1 Ml (20 Mg/4 Ml) Injection IV 06/28/25 04:41 10 mg
Q4HPRN PRN Administration
SBP >140/DBP >90
Lorazepam 1 mg 05/30/25 19:21
Lorazepam 1 Mg Tablet PO 06/27/25 19:20
Q2HPRN PRN
MSAS 5-7
Lorazepam 1 mg 05/30/25 19:21 05/31/25 09:15
Lorazepam 2 Mg/Ml Vial IV 06/27/25 19:20 1 mg
Q1HPRN PRN Administration
MSAS 8-11
Lorazepam 2 mg 05/30/25 19:21
Lorazepam 2 Mg/Ml Vial IV 06/27/25 19:20
Q1HPRN PRN
MSAS > 11
Lorazepam 1 mg 05/31/25 08:45
Lorazepam 2 Mg/Ml Vial IV 06/28/25 08:44
Q4HPRN PRN
seizure
Sodium Chloride 0 ml 05/30/25 19:21 05/31/25 09:17
Sodium Chloride 0.9% (Preservative Free) 10 Ml Vial IV 06/27/25 19:20 0.5 ml
PRN PRN Administration
To dilute IV Ativan
Protocol
Sodium Chloride 0 flush 05/30/25 20:00
Sodium Chloride 0.9% (Flush) Syringe IV 06/27/25 19:59
PER PROTOCOL MICHAEL
Thiamine HCl 200 mg 05/30/25 20:00 05/30/25 21:07
Thiamine (100 Mg/Ml) 2 Ml Vial IV 06/02/25 08:01 200 mg
Q12 MICHAEL Administration
Thiamine HCl 100 mg 06/02/25 20:00
Thiamine 100 Mg Tablet PO 06/30/25 19:59
BID MICHAEL
Valsartan 320 mg 05/31/25 08:00 05/31/25 11:57
Valsartan 160 Mg Tablet PO 06/28/25 07:59 Not Given
DAILY MICHAEL
Physical Exam
-
Non-responsive, EEG ongoing. Seizure activity versus twitching movements.
HEENT: Negative Jaundice
Labs
Lab Results
WBC 5.2 10^3/uL (4.8-10.8) 05/30/25 13:16
RBC 3.35 10^6/uL (4.20-5.40) L 05/30/25 13:16
Hgb 11.3 g/dL (12.0-16.0) L 05/30/25 13:16
Hct 33.5 % (37.0-47.0) L 05/30/25 13:16
MCV 100.0 fL (81.0-99.0) H 05/30/25 13:16
MCH 33.7 pg (27.0-31.0) H 05/30/25 13:16
MCHC 33.7 g/dL (33.0-37.0) 05/30/25 13:16
RDW 12.7 % (11.5-14.5) 05/30/25 13:16
Plt Count 189 10^3/uL (130-400) 05/30/25 13:16
MPV 9.3 fL (7.4-10.4) 05/30/25 13:16
Abs Immat Gran (auto) 0.0 10^3/uL (0-0.05) 05/30/25 13:16
Absolute Neuts (auto) 3.6 10^3/uL (1.4-6.5) 05/30/25 13:16
Absolute Lymphs (auto) 0.7 10^3/uL (1.2-3.4) L 05/30/25 13:16
Absolute Monos (auto) 0.7 10^3/uL (0.1-0.6) H 05/30/25 13:16
Absolute Eos (auto) 0.1 10^3/uL (0-0.7) 05/30/25 13:16
Absolute Basos (auto) 0.1 10^3/uL (0-0.2) 05/30/25 13:16
Immature Gran % 0.6 % (0-0.5) H 05/30/25 13:16
Neutrophils % 69.5 % (42.2-75.2) 05/30/25 13:16
Lymphocytes % 12.6 % (20.5-51.1) L 05/30/25 13:16
Monocytes % 14.3 % (1.7-9.3) H 05/30/25 13:16
Eosinophils % 1.5 % (0-6) 05/30/25 13:16
Basophils % 1.5 % (0-2) 05/30/25 13:16
Creatinine 0.6 mg/dL (0.6-1.0) 05/31/25 06:32
Vital Signs
Vital Signs
Temp Pulse Resp BP Pulse Ox
98.9 F 86 26 145/131 92
05/31/25 07:45 05/31/25 10:00 05/31/25 10:00 05/31/25 10:00 05/31/25 10:00
--- NOTE | 2025-05-31 13:16 | CM ---
Pt had stroke alert this morning. Transferred to IMU 2417-1
Plan: TBD post stroke alert
[2025-05-31] MEDS: VIMPAT 200 MG IV ×2 (13:24→19:51)
[2025-05-31] MEDS: KCL 270 MEQ IV (13:32)
[2025-05-31] MEDS: DECADRON 8 MG IV ×2 (13:33→21:40)
--- NOTE | 2025-05-31 14:14 | PTCARENOTE ---
Sonorous at times. EtCo2 oxygen nasal cannula applied. t the bedside. He is aware she received Locosamide.
--- NOTE | 2025-05-31 14:15 | EEG.RPT ---
Electroencephalogram Report
Recording
Date of EE05/31/25
Type of EEG: Routine
Length of EEG recordin minutes
Done with Video Recording: Yes
Patient Status: Inpatient
Recording Conditions: Awake and Drowsy
Hyperventilation Performed: No
Photic Stimulation Performed: No
Report
LESS THAN 1 HOUR REPORT
LESS THAN 1 HOUR EEG INTERPRETATION:
Moderately to severely abnormal study for age based on bursts of OIRDA and generalized slowing demonstrated bihemispherically equally
CLINICAL CORRELATION:
This study was suggestive of a occipitally predominant potentially epileptogenic pattern. The patient's shaking during the study was suggestive of a clinical correlate to the patient's EEG abnormality.
Clinical correlation is advised.
METHODS:
A 21 channel digitized electroencephalogram (EEG) was performed at the bedside in the intensive care unit. The 10/20 international system of electrode placement was used with ECG and lateral/vertical eye movements recorded. Persyst QEEG monitoring
was performed.
ELECTROENCEPHALOGRAPHER IMPRESSION(S):
Quality of study
Good, at times limited due to movement artifact
Background
Medium amplitude
Fair anterior-posterior voltage gradient differentiation
Theta maximal background demonstrated
Sleep
Drowsiness present
Hyperventilation
Not performed
Photic Stimulation
Not performed
ECG
Normal rhythm
Abnormal Activity
Frequent bilaterally occipitally predominant semi-rhythmic and rhythmic delta activity (1.5 to 2/s) which was crescendo in appearance, and medium amplitude lasting for up to 10 seconds. This appearance was similar to occipital intermittent
rhythmic delta activity (OIRDA).
--- NOTE | 2025-05-31 14:40 | PTCARENOTE ---
Sonorous with long periods of apnea with desaturation. Nasal cannula increased to [address] Matthew and Steve notified via TC. Orders obtained.
--- NOTE | 2025-05-31 16:10 | PTCARENOTE ---
Dr. Wilson called for update. She is aware pt now on Bipap and unresponsive. Would not feel comfortable moving her out of ICU and possible needing ICU level of care.
[2025-05-31] MEDS: SUBLIMAZE 50 MCG IV ×3 (16:30→19:58)
[2025-05-31] MEDS: DIPRIVAN 100 IV (16:32)
--- NOTE | 2025-05-31 16:32 | PTCARENOTE ---
Unresponsiveness. Successfully intubated to protect airway by Dr. Pereira w/8.0 ETT secured 23cm right lip. and the son at the bedside & informed of the plan of care. Right nare [place] sump tube inserted as ordered and secured 65cm, verified
with air bolus, xray's pending. Copious clear oral secretions. Aspiration precautions.
--- NOTE | 2025-05-31 16:41 | OR.RPT ---
Operative Report
Operative Report
Rapid sequence intubation
Indication. Patient unresponsive, inability to protect airway, on BiPAP
Consent: verbal consent obtained from patient's at bedside
Pre-medications: None
Patient was placed in supine position. Patient was on BiPAP which was continued to preoxygenated, subsequently [id number] ventilation was applied. SpO2 prior to intubation was 99%. 20 mg of Etomidate was given as an induction agent followed
by 70 mg of Rocuronium as paralytic. GlideScope was used, blade size #3, grade 1 view of vocal cords was obtained and ET tube, 8.0, was advanced under direct visualization without any difficulty. Color change was confirmed and patient was bagged
and then subsequently patient was connected to ventilator. Bilateral good air entry noted. Tube was secured at 23 cm at the teeth. Patient tolerated the procedure well. SpO2 postintubation 99%
Time spent: 25 min
Complications: None
Date of Service: 05/31/2025
--- NOTE | 2025-05-31 16:58 | CON.INTV ---
Consultation
Consultation Request
Date/Time Consultation Requested: 05/31/2025
Date/Time Consultation Performed: 05/31/2025
Medical History
-
Chief Complaint: Altered mental status
History of Present Illness:
Patient is a 64-year-old female who was unresponsive during my initial evaluation with minimal response to sternal rub. Patient was not able to protect her airway and had been on BiPAP for few hours without any improvement. Patient was emergently
intubated and mechanically ventilated.
In brief she presented to the hospital on 1117 after falls. Patient had been declining over the last few days with decreased appetite as well as having difficulty with depth perception as well as falls. Workup including CT head, CTA head and neck
along with MRI brain which was suspicious for metastatic brain lesion along with a lung mass as well as mediastinal lymphadenopathy. Patient was evaluated by neurology and oncology service. Earlier in the day she was transferred to IMU for concern
of ongoing seizures and need for continuous EEG and antiseizure medications. Throughout the day patient became more lethargic, developed hypoxia and sonorous respiration and was initiated on BiPAP. Over coming hours patient continued to stay
unresponsive and then urgent critical care consult was requested. Patient was emergently evaluated and was noted to be unresponsive on BiPAP. Discussed with patient's and son at bedside who agreed with proceeding with intubation and
mechanical ventilation.
Past Medical History
Past Medical History: Reports Other
Additional Past Medical History:
hypertension
hyperlipidemia
depression
squamous cell skin ca
Past Surgical History: Reports Other
Additional Past Surgical History:
squamous cell skin ca lip-surgical removal (1996)
Tonsillectomy
cataract removal- bilateral 04/2024
Right JONATHAN SDS, DOS 07.13.2024 CBB
Left JONATHAN CBB 10/12/24
Social History
Tobacco: Non-smoker
Alcohol: Daily (2-3 drinks per day )
Drug: None
Living: With Family
Family History
Family History: Not pertinent
Allergies / Home Medications
Allergies
Allergy/AdvReac Type Severity Reaction Status Date / Time
Sulfa (Sulfonamide Allergy Rash Verified 05/30/25 12:05
Antibiotics)
Home Medications
�Medication �Instructions �Recorded �Confirmed �Last Taken �Type
atenolol 50 mg tablet 50 mg PO BID Blood Pressure 05/30/25 05/30/25 05/29/25 History
atorvastatin 20 mg tablet 20 mg PO HS High Cholesterol 05/30/25 05/30/25 05/29/25 History
escitalopram oxalate 10 mg tablet 10 mg PO DAILY Mental 05/30/25 05/30/25 05/29/25 History
Health/Anxiety
therapeutic multivitamin 1 tab PO DAILY Supplement 05/30/25 05/30/25 05/29/25 History
valsartan 320 mg tablet 320 mg PO DAILY Blood Pressure 05/30/25 05/30/25 05/29/25 History
omeprazole 40 mg capsule,delayed 40 mg PO DAILY Gastrointestinal 05/31/25 05/31/25 Unknown History
release Issue
Review of Systems
-
Unable to Obtain full review of systems at this time due to: Other (Patient essentially unresponsive)
Vitals / Labs / Diagnostic Testing
Vital Signs
Temp Pulse Resp BP Pulse Ox
98.7 F 102 15 201/126 98
05/31/25 15:36 05/31/25 16:49 05/31/25 16:40 05/31/25 16:49 05/31/25 16:41
Lab Data
05/30/25 13:16
05/31/25 06:32
Laboratory Results
05/30/25
21:15
PT 13.8
INR 1.03
APTT 27.3
Diagnostic Testing:
Physical Exam
-
HEENT: Normocephalic
Cardiovascular: S1/S2
Respiratory: Clear and Non-Labored Respirations
GI: Non Distended
Neurology: Other (Unresponsive)
Skin: Warm
General: Comfortable
Assessment
-
#1. Acute respiratory failure with inability to protect airway
- Suspect respiratory failure in the setting of severe encephalopathy and inability to protect airway, high aspiration risk
-Earlier in the day patient noted to be hypoxic and sonorous, was initiated on BiPAP. No improvement in mental status since.
- Patient emergently evaluated, intubated and mechanically ventilated without difficulty
- Propofol and fentanyl infusion for sedation
- Initiate volume assist-control 400/16/50%/5. Check ABG 45 minutes later and make changes accordingly
- Place orogastric tube, stat chest x-ray to confirm ET tube position
#2. Acute encephalopathy, newly detected seizure disorder along with suspected brain metastatic lesions with edema
- Currently EEG monitoring ongoing
- Discussed with neurology service, continue thiamine replacement, Vimpat as well as Keppra as ordered.
- Initiate propofol infusion postintubation
- CT and MRI reviewed
- Reported history of alcohol use, presentation not typical for alcohol withdrawal. Continue thiamine replacement. Propofol initiated.
- Continue IV Decadron
#3. Metastatic malignancy of unclear primary
- Right lower lobe mass and mediastinal lymphadenopathy noted on imaging, high likelihood of primary lung cancer
- Cerebral lesions likely metastasis
- Oncology service on case. Patient will need CT chest abdomen pelvis with contrast once more stable.
- Decision regarding tissue diagnosis deferred for now
#4. History of alcohol use
- Continue thiamine replacement
Other medical diagnoses:
- Hypertension
- Hyperlipidemia
- History of depression
- Mild hyponatremia
SCDs for DVT prophylaxis
IV Protonix for GI prophylaxis
Critical Care time 65 mins -- The patient is admitted for acute critical illness for the treatment of vital organ failure and/or prevention of further life-threatening conditions. Total care includes time spent in review of history, physical exam,
medications, hemodynamic/ventilator parameters, laboratory data, imaging and discussion with house staff, pharmacy, respiratory therapy, sheriff's sergeant, and nursing.
Data:
CT Head 05/2025: Stable appearance of CT of the head compared to most recent unenhanced CT of May 30, 2025.
CTA head/Neck 05/2025: No evidence of acute vascular pathology.
Incompletely imaged right lower lobe pleural-based mass consistent with malignancy until proven otherwise.
Moderate mediastinal lymphadenopathy and several tiny bilateral upper lobe pulmonary nodules suggesting metastatic disease.
Significant bilateral parietal lobe vasogenic edema with mass effect and probable underlying masses likely metastatic disease considering the above findings. The patient is scheduled for MRI examination today.
Multilevel degenerative disease. Progressed at all levels
Mild reversal of cervical spinal lordosis. This can be seen with spasm. New
Mild atrophy.
MRI Brain 05/2025: 3 enhancing lesions as described, one centered in the posterior right parietal lobe, one at the left parieto-occipital junction, and a third small enhancing lesion within the posterior and medial left parietal lobe. Extensive
white matter edema within the parietal and occipital lobes, slightly greater on the right compared to the left.
Findings very likely represents metastatic disease to the brain, somewhat unusual distribution. Other differential considerations would seem to be significantly less likely. This would be an atypical appearance for abscesses, although could still be
considered. Multifocal primary brain neoplasm such as glioblastoma multiforme could be considered.
[2025-05-31] MEDS: THIAMINE INJECTION IV (17:12)
[2025-05-31 17:44] LABS: B.E. -3.7 mmol/L; HCO3 20.6 mmol/L (21-28); O2 Saturation % 100.0 % (94-98); PCO2 34 mmHg (32-35); PO2 118 mmHg (83-108)
[2025-05-31] MEDS: TENORMIN 50 MG TUBE (18:07)
--- NOTE | 2025-05-31 19:30 | PTCARENOTE ---
Resumed care of pt this evening. Received pt intubated and sedated on 20 mcg/kg/min of propofol via right peripheral IV site. Pt on 24 hour continuous EEG monitoring. Pt occasionally exhibits spastic movements of legs bilaterally. Pt also
occasionally moves bilateral arms seemingly non purposeful in nature. Q4H neurological assessments maintained. Pt's pupils are equal and reactive to light. Pt opens eyes to pain/tactile stimuli.
[2025-05-31 19:32] LABS: Triglycerides 79 mg/dl (10-149)
[2025-05-31] MEDS: DIOVAN 320 MG TUBE (19:47)
[2025-05-31] MEDS: KEPPRA 1500 MG IV (19:49)
[2025-05-31] MEDS: THIAMINE INJECTION 200 MG IV (19:51)
--- NOTE | 2025-05-31 20:00 | PTCARENOTE ---
PRN dose of IV fentanyl administered by this RN for vent dyssynchrony. CPOT 7
[2025-05-31] MEDS: CARDENE 200 IV (20:13)
--- NOTE | 2025-05-31 20:20 | PTCARENOTE ---
Cardene gtt initiated for HTN, systolic in the 190s. Cardene gtt started at 2.5 mg/hr via left peripheral IV site.
[2025-05-31] MEDS: NORVASC 5 MG TUBE (20:30)
[2025-05-31] MEDS: LIPITOR 20 MG TUBE (20:31)
[2025-05-31 21:44] LABS: APTT 27.0 Sec (23.4-35.0); INR 1.07; PT 14.2 Sec (11.4-14.6)
[2025-05-31 21:57] LABS: Blood Urea Nitrogen 12 mg/dl (7-17); Calcium 8.5 mg/dl (8.4-10.2); Carbon Dioxide 23 mmol/L (22-30); Chloride 98 mmol/L (98-107); Estimated Creatinine Clearance 81 ml/min; Glucose 163 mg/dl (70-99); Potassium 4.2 mmol/L (3.5-5.1); Sodium 133 mmol/L (135-145); eGFR > 60.00
--- NOTE | 2025-05-31 22:00 | PTCARENOTE ---
Sosa cath inserted to maintain critical I/Os per order.
[2025-05-31] MEDS: NOVOLOG FLEXPEN-LOW RESISTANCE SC (23:40)
[2025-05-31 23:48] LABS: Glucose - Point of Care 143 mg/dl (70-99)
[2025-06-01] VITALS (39 sets, daily range): BP systolic 104–187; BP diastolic 68–114; BMI 29.1
[2025-06-01] MEDS: DIPRIVAN 100 IV ×2 (01:00→05:22)
[2025-06-01] MEDS: SUBLIMAZE 50 MCG IV ×3 (02:40→08:22)
[2025-06-01 04:17] LABS: Hematocrit 30.2 % (37.0-47.0); Hemoglobin 9.9 g/dL (12.0-16.0); Mean Corp Hgb Conc. 32.8 g/dL (33.0-37.0); Mean Corpuscular Volume 104.5 fL (81.0-99.0); Platelet Count 189 10^3/uL (130-400); Red Cell Dist. Width 12.6 % (11.5-14.5)
[2025-06-01 04:42] LABS: Blood Urea Nitrogen 14 mg/dl (7-17); Calcium 8.5 mg/dl (8.4-10.2); Carbon Dioxide 24 mmol/L (22-30); Chloride 100 mmol/L (98-107); Estimated Creatinine Clearance 81 ml/min; Glucose 156 mg/dl (70-99); Magnesium 1.7 mg/dl (1.6-2.3); Potassium 4.1 mmol/L (3.5-5.1); Sodium 134 mmol/L (135-145); eGFR > 60.00
[2025-06-01] MEDS: DECADRON 8 MG IV (05:19)
[2025-06-01] MEDS: NOVOLOG FLEXPEN-LOW RESISTANCE 1 UNITS SC ×2 (05:32→12:57)
[2025-06-01 05:42] LABS: Glucose - Point of Care 156 mg/dl (70-99)
--- NOTE | 2025-06-01 07:37 | EEG.RPT ---
Electroencephalogram Report
Recording
Date of EE05/31/25
Type of EEG: Extended Monitoring
--- NOTE | 2025-06-01 07:37 | EEGC.RPT ---
Continuous EEG Report
Recording
Start Date of Data Reviewed: 05/31/25
Start Time of Data Reviewed: 11:20
End Date of Data Reviewed: 06/01/25
End Time of Data Reviewed: 07:00
Type of EEG: Continuous
Done with Video Recording: Yes
Study Sequence: Initiation of Study
Electrocardiogram: Unremarkable
Patient Status: Inpatient
Report
Moderately to severely abnormal study for age based on bursts of OIRDA and generalized slowing demonstrated bihemispherically equally
CLINICAL CORRELATION:
This study was suggestive of a occipitally predominant rhythmic epileptogenic pattern. Severity of the abnormality improved towards the end of the study. In comparison with the initial portion of the study and the completed initial EEG, this study
has improved as the rhythmicity diminished and amplitude dropped.
Clinical correlation is advised.
METHODS:
A 21 channel digitized electroencephalogram (EEG) was performed at the bedside in the intensive care unit. The 10/20 international system of electrode placement was used with ECG and lateral/vertical eye movements recorded. Persyst QEEG monitoring
was performed.
ELECTROENCEPHALOGRAPHER IMPRESSION(S):
Quality of study
Good
Background
Medium amplitude
Fair anterior-posterior voltage gradient differentiation
Theta maximal background demonstrated
Sleep
Drowsiness present
Stage II sleep was characterized by sleep spindles
Hyperventilation
Not performed
Photic Stimulation
Not performed
ECG
Normal rhythm
Abnormal Activity
Intermittent and decreasing in frequency over the course of the study were bilaterally occipitally predominant, right greater than left and amplitude, low amplitude rhythmic delta activity (1.5 to 2/s) taking place every other second, discharges
lasting for up to 10 seconds. This appearance was similar to occipital intermittent rhythmic delta activity (OIRDA).
[2025-06-01] MEDS: PROTONIX IV 40 MG IV (07:56)
[2025-06-01] MEDS: KEPPRA 1500 MG IV ×2 (07:57→20:23)
[2025-06-01] MEDS: VIMPAT 200 MG IV ×2 (07:57→20:24)
[2025-06-01] MEDS: NSS (PRESERVATIVE FREE) 10 ML IV (07:57)
[2025-06-01] MEDS: NORVASC 5 MG TUBE ×2 (07:58→20:24)
[2025-06-01] MEDS: LEXAPRO 10 MG TUBE (07:58)
[2025-06-01] MEDS: DIOVAN 320 MG TUBE (07:58)
[2025-06-01] MEDS: TENORMIN 50 MG TUBE ×2 (07:58→20:25)
[2025-06-01] MEDS: MIRALAX 17 GRAMS TUBE (07:59)
[2025-06-01] MEDS: FOLVITE 1 MG TUBE (07:59)
[2025-06-01] MEDS: THIAMINE INJECTION 200 MG IV ×2 (07:59→20:30)
--- NOTE | 2025-06-01 08:05 | PTCARENOTE ---
Assumed care of Pt at shift change. ET tube at R side of lip @ 24cm; On Vent, AC settings 40/15/400/5; b/l wrist restraints intact, bed rails up and seizure pads in place. R nare [place] sump tube present, placement confirmed. Propofol @ 30mcg, pt
unresponsive; PERRLA; Noted to have non-purposeful generalized movement after tactile stimulus - button pushed on EEG machine when observed. NSR on monitor; BP labile - HTN meds administered via NG tube; Sosa tube draining yellow urine with
sediment. Will continue to monitor and assess.
--- NOTE | 2025-06-01 09:42 | PTCARENOTE ---
Pt noted to have some purposeful movement and observed biting down on ET tube; Pt given 50mcg Fentanyl prior to wash/turn in bed; In preparation for extubation Propofol tapered to 15mcg and RT changed vent settings. Pt tolerated changed well -
Dr. Pereira evaluated pt and okay'd for extubation. RT removed ET tube, Pt responding to questions. Pt mildly disoriented. Will continue to monitor and assess.
[2025-06-01] MEDS: TRANDATE 10 MG IV ×2 (10:05→16:25)
--- NOTE | 2025-06-01 10:26 | W.PN.ONC2 ---
Today's Communication / Plan
-
Get CT when stable and then will need a biopsy.
Impression
Impression
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
lung/arron masses in the chest
Alcohol use, h/o remote smoking.
Plan
Plan
Dexamethasone 8mg IV q8hr
AEDs per neurology
Once stable from a neurologic perspective, needs CT CAP to evaluate for an underlying primary malignancy - suspect lung cancer
Biopsy and further w/u TBD as more results are obtained
Will follow along
Subjective/Objective
Chief Complaint
ACS Oncology F/U
Subjective
Lethargic and heavily sedated. Just extubated. Son at bedside. Getting an continueous EEG
Vital Signs:
Vital Signs
Temp Pulse Resp BP Pulse Ox
97.3 F 78 16 182/106 96
06/01/25 07:20 06/01/25 10:05 06/01/25 09:30 06/01/25 10:05 06/01/25 10:16
Lab Results:
Laboratory Data
WBC 5.9 10^3/uL (4.8-10.8) 06/01/25 03:53
Hgb 9.9 g/dL (12.0-16.0) L 06/01/25 03:53
Plt Count 189 10^3/uL (130-400) 06/01/25 03:53
PT 14.2 Sec (11.4-14.6) 05/31/25 21:25
INR 1.07 05/31/25 21:25
APTT 27.0 Sec (23.4-35.0) 05/31/25 21:25
eGFR > 60.00 06/01/25 03:53
Physical Exam
lethargic but arousable. Per RN much better.
--- NOTE | 2025-06-01 11:01 | W.PN.NEURO.1 ---
Today's Communication / Plan
-
Continue continuous EEG monitoring, if remains stable consider discontinuance
Continue thiamine replacement.
Appreciate oncology evaluation. Check CAT scan chest abdomen pelvis when patient stable
Seizure precautions.
Goal of normotension
Neuro Assessment/Plan
Assessment
IMPRESSIONS/RECOMMENDATIONS:
Abrupt onset of gait difficulty, depth perception difficulty and falling with CT of the head suggesting posterior reversible encephalopathy syndrome, and report of chronic daily alcohol usage.
MRI brain demonstrates an enhancing lesion in the right parietal lobe, left parietao-occipital junction, and a third in the medial left parietal lobe associated with extensive vasogenic edema; uncertain if this is metastatic disease vs primary brain
neoplasm. Left-sided ataxia, gaze preference this morning consistent with seizure activity.
-CT head 05/30/25: Pronounced hypoattenuation centered within the white matter of the parieto-occipital lobes. 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 Mild cerebral atrophy and mild small vessel change.
-CTA head/neck 05/30/25: No evidence of acute vascular pathology. Incompletely imaged right lower lobe pleural-based mass consistent with malignancy until proven otherwise. Moderate mediastinal lymphadenopathy and several tiny bilateral upper lobe
pulmonary nodules suggesting metastatic disease. Significant bilateral parietal lobe vasogenic edema with mass effect and probable underlying masses likely metastatic disease considering the above findings. Multilevel degenerative disease.
Progressed at all levels Mild reversal of cervical spinal lordosis. This can be seen with spasm. New. Mild atrophy.
-MRI brain 05/30/25: 3 enhancing lesions as described, one centered in the posterior right parietal lobe, one at the left parieto-occipital junction, and a third small enhancing lesion within the posterior and medial left parietal lobe. Extensive
white matter edema within the parietal and occipital lobes, slightly greater on the right compared to the left. Findings very likely represents metastatic disease to the brain, somewhat unusual distribution. Other differential considerations would
seem to be significantly less likely. This would be an atypical appearance for abscesses, although could still be considered. Multifocal primary brain neoplasm such as glioblastoma multiforme could be considered.
Patient initiated on dexamethasone 05/30/2025
Patient initiated on levetiracetam 05/31/2025 followed by lacosamide
Continuous EEG monitoring started 05/31/2025 indicated occipital intermittent rhythmic delta activity.
Plan
Continue continuous EEG monitoring, if remains stable consider discontinuance
Continue thiamine replacement.
Appreciate oncology evaluation. Check CAT scan chest abdomen pelvis when patient stable
Seizure precautions.
We will follow
Subjective/Objective
Subjective Data
Date of Service: June 01, 2025
Patient reports no symptoms currently
Objective Data
Vital Signs
Temp Pulse Resp BP Pulse Ox
36.3 C 90 21 155/78 97
06/01/25 07:20 06/01/25 10:45 06/01/25 10:45 06/01/25 10:30 06/01/25 10:45
Lab Results
06/01/25 03:53
06/01/25 03:53
PT 14.2 Sec (11.4-14.6) 05/31/25 21:25
INR 1.07 05/31/25 21:25
APTT 27.0 Sec (23.4-35.0) 05/31/25 21:25
Sodium 134 mmol/L (135-145) L 06/01/25 03:53
Potassium 4.1 mmol/L (3.5-5.1) 06/01/25 03:53
BUN 14 mg/dl (7-17) 06/01/25 03:53
Glucose 156 mg/dl (70-99) H 06/01/25 03:53
Calcium 8.5 mg/dl (8.4-10.2) 06/01/25 03:53
Phosphorus 4.1 mg/dl (2.5-4.5) 05/30/25 13:16
Ur Buprenorphine Negative (Negative) 05/30/25 15:28
Patient Allergies
Sulfa (Sulfonamide Antibiotics) Allergy (Verified 05/30/25 12:05)
Rash
Review of Systems
-
Unable to obtain full review of systems at this time due to: Lethargy
History Source: Patient
All other systems: Reviewed and negative
Neuro: Negative Headache
Physical Exam
-
General: No Apparent Distress, Obese and Wearing Oxygen
Eyes: No Ptosis and PERRLA
HEENT: Normocephalic and Atraumatic
Neck: Full Range of Motion
Respiratory: No Dyspnea
GI: Non-distended
Extremities: No Clubbing, No Cyanosis and No Edema
Extended Neurological Exam
Mood & Affect: Mood Unremarkable and Affect Unremarkable
Attention Span & Concentration: Awake, Interactive, Closes Eyes after Stimulation and Severe Difficulty with 2 Step Request
Memory: Able to Recall (Month, year, name of hospital)
Tremor: Hand Tremor Absent and Head Tremor Absent
Involuntary Movement: Other (Dystonic movement of the left upper extremity)
Speech: Quality Unremarkable, Rate of Production Unremarkable and Mildly Reduced Output
Cranial Nerve II: Left Eye: Pupillary Size Unremarkable and Visual Hensley Grossly Intact
Cranial Nerve II: Right Eye: Pupillary Size Unremarkable and Visual Hensley Grossly Intact
Cranial Nerves III, IV, : Extraocular Movement: Grossly Intact
Cranial Nerve VII: Facial Symmetry: Normal Facial Symmetry
Cranial Nerve VIII: Hearing: Unremarkable Hearing to Normal Conversational Volume
Muscle Strength, Overall: Spontaneously Moves (Reduced spontaneous movements of the left upper extremity and left lower extremity relative to the right with a strong preference to right sided movement)
Muscle Bulk & Tone: Bulk Unremarkable and Tone Unremarkable
Pronator Drift: Drift in Left Upper Extremity and Drift in Left Lower Extremity; Negative Drift in Right Upper Extremity or Drift in Right Lower Extremity
Coordination: Negative [id number] Testing Unremarkable (LUE ataxia)
Gait & Station: Unable to Assess
Data Reviewed
-
EEG: Ordered and Report Reviewed
Labs: Report Reviewed
Reviewed with: Physician, Nurse, Nurse Practioner, Patient and Family
Old Records: Summarized
--- NOTE | 2025-06-01 11:53 | W.PN.INTV ---
Today's Communication / Plan
Recommendations
- Tolerated SAT/SBT well, extubated to room air
- Minimize sedating medications
- Await CT chest abdomen pelvis
Assessment
-
In brief she presented to the hospital on 111 after falls. Patient had been declining over the last few days with decreased appetite as well as having difficulty with depth perception as well as falls. Workup including CT head, CTA head and neck
along with MRI brain which was suspicious for metastatic brain lesion along with a lung mass as well as mediastinal lymphadenopathy. Patient was evaluated by neurology and oncology service. Earlier in the day she was transferred to IMU for concern
of ongoing seizures and need for continuous EEG and antiseizure medications. Throughout the day patient became more lethargic, developed hypoxia and sonorous respiration and was initiated on BiPAP. Over coming hours patient continued to stay
unresponsive and then urgent critical care consult was requested. Patient was emergently evaluated and was noted to be unresponsive on BiPAP. Discussed with patient's and son at bedside who agreed with proceeding with intubation and
mechanical ventilation.
#1. Acute respiratory failure with inability to protect airway (Intubated 05/31 - Extubated 06/01)
- Suspect respiratory failure in the setting of severe encephalopathy and inability to protect airway, high aspiration risk. Likely in the setting of seizures, postictal state and sedation related to medications
- Intubated on 05/31.
- 06/01, propofol weaned off, tolerated SAT SBT well, extubated successfully. Strong cough and gag reflex. More awake and alert.
#2. Acute encephalopathy, newly detected seizure disorder along with suspected brain metastatic lesions with edema
- Currently EEG monitoring ongoing
- Discussed with neurology service, continue thiamine replacement, Vimpat as well as Keppra as ordered.
- CT and MRI reviewed
- Reported history of alcohol use, presentation not typical for alcohol withdrawal. Continue thiamine replacement. Propofol initiated.
- Continue IV Decadron
- 06/01. More awake, alert. Extubated.
#3. Metastatic malignancy of unclear primary
- Right lower lobe mass and mediastinal lymphadenopathy noted on imaging, high likelihood of primary lung cancer
- Cerebral lesions likely metastasis
- Oncology service on case. Await CT C/A/P.
- Decision regarding tissue diagnosis deferred for now
#4. History of alcohol use
- Continue thiamine replacement
Other medical diagnoses:
- Hypertension
- Hyperlipidemia
- History of depression
- Mild hyponatremia
SCDs for DVT prophylaxis
IV Protonix for GI prophylaxis
Critical Care time 45 mins -- The patient is admitted for acute critical illness for the treatment of vital organ failure and/or prevention of further life-threatening conditions. Total care includes time spent in review of history, physical exam,
medications, hemodynamic/ventilator parameters, laboratory data, imaging and discussion with house staff, pharmacy, respiratory therapy, bread wrapper operator, and nursing.
Data:
CT Head 05/2025: Stable appearance of CT of the head compared to most recent unenhanced CT of May 30, 2025.
CTA head/Neck 05/2025: No evidence of acute vascular pathology.
Incompletely imaged right lower lobe pleural-based mass consistent with malignancy until proven otherwise.
Moderate mediastinal lymphadenopathy and several tiny bilateral upper lobe pulmonary nodules suggesting metastatic disease.
Significant bilateral parietal lobe vasogenic edema with mass effect and probable underlying masses likely metastatic disease considering the above findings. The patient is scheduled for MRI examination today.
Multilevel degenerative disease. Progressed at all levels
Mild reversal of cervical spinal lordosis. This can be seen with spasm. New
Mild atrophy.
MRI Brain 05/2025: 3 enhancing lesions as described, one centered in the posterior right parietal lobe, one at the left parieto-occipital junction, and a third small enhancing lesion within the posterior and medial left parietal lobe. Extensive
white matter edema within the parietal and occipital lobes, slightly greater on the right compared to the left.
Findings very likely represents metastatic disease to the brain, somewhat unusual distribution. Other differential considerations would seem to be significantly less likely. This would be an atypical appearance for abscesses, although could still be
considered. Multifocal primary brain neoplasm such as glioblastoma multiforme could be considered.
Subjective Dataa
Subjective Data
Date of Service:
Date of Service: June 01, 2025
Subjective:
Intubated, mechanically ventilated and sedated
Review of Systems
General: Unobtainable - Sedation
Objective Data
Data Reviewed
Vital Signs / I&O / Oxygen:
Vital Signs
Temp Pulse Resp BP Pulse Ox
97.3 F 90 21 155/78 96
06/01/25 07:20 06/01/25 10:45 06/01/25 10:45 06/01/25 10:30 06/01/25 11:02
Intake and Output
05/31/25 06/01/25 06/02/25
06:59 06:59 06:59
Intake Total 1010 / 1010 620.6 / 632.8 134.4 / 134.4
Output Total 899.0 / 909.0 135 / 135
Balance 1010 / 1010 -278.4 / -276.2 -0.6 / -0.6
SaO2 [CPAP/PSV] 97
SaO2 [A/C] 98
SaO2 96
Nasal Cannula flow liters per 3
minute
Physical Exam
General: Comfortable
HEENT: Normocephalic
Cardiovascular: S1-S2
Respiratory: Clear and Non-Labored Respirations
GI: Soft and Non Distended
Neurology: Other (Starting to wake up as sedation being lowered)
Skin: Warm
Labs/Micro/Reports
Lab Data
06/01/25 03:53
06/01/25 03:53
Laboratory Results
05/31/25 05/31/25 05/31/25
16:08 17:32 21:25
PT 14.2
INR 1.07
APTT 27.0
pH Cancelled 7.39
pCO2 Cancelled 34
pO2 Cancelled 118 H
HCO3 Cancelled 20.6 L
O2 Delivery Level Cancelled
[2025-06-01 12:18] LABS: Glucose - Point of Care 162 mg/dl (70-99)
[2025-06-01 12:58] LABS: Glucose - Point of Care 150 mg/dl (70-99)
--- NOTE | 2025-06-01 14:13 | W.PN.HOSP.TC ---
Today's Communication/Plan
-
Extubated. Awake, alert, following some commands. Still with rhythmic activity/shaking. Still with left-sided motor and visual field deficits. CT scans for staging. IV Keppra, IV Decadron, neurology managing antiepileptics.
Assessment / Plan
Assessment / Plan
64F with HTN, HLD, EtOH use daily, P/W falls, decreased depth perception over several months.
[employer] lesions with vasogenic edema
Seizure
Acute neurodeficits including left side weakness and seizure on 05/31, Loaded with IV Keppra, IV Ativan, IV Decadron, was still seizing on EEG, leading to acute encephalopathy, hypoxia, unable to protect airway. Was intubated 05/31, now extubated
06/01.
Metastatic cancer most likely versus primary GBM
Moved to ICU
Continue maintenance Keppra and dexamethasone
N.p.o., ST eval, diet when appropriate
Close monitoring, as needed IV Ativan
Neurology consulted, discussed with Dr. Matthew at bedside
CT chest/abdomen/pelvis ordered to locate primary. Had a mammogram last year that did not show any evidence of malignancy
Oncology consulted, patient will likely need biopsy of pleural mass
HTN urgency
BP elevated on admit required multiple doses of IV labetalol
Continue p.o. valsartan
Goal BP less than 140s
Alcohol use disorder
Transaminitis
3 drinks per day
Continue IV thiamine, continue folate, monitor for alcohol withdrawal, on protocol, no e/o w/d
HLD
Statin
Depression
Escitalopram
Hypokalemia
Replete with oral K
Resolved
Hyponatremia
Mild, will monitor
Improved
Anemia
Hgb dropped from 11.3-9.9, for now we will monitor, check anemia panel
DVT PPx
SCDs
DNR
Anticipated Discharge: > 48 hours
Subjective/Interval History
-
Date of Service: June 01, 2025
Patient seen this morning, son and at bedside. She is awake, alert, extubated. She is following some commands, having difficulty due to her visual field deficits.
Objective Data
-
Labs:
Laboratory Results
06/01/25
03:53
WBC 5.9
Hgb 9.9 L
Hct 30.2 L
Plt Count 189
Sodium 134 L
Potassium 4.1
Chloride 100
Carbon Dioxide 24
BUN 14
Creatinine 0.6
Glucose 156 H
Calcium 8.5
Total Bilirubin Pending
AST Pending
ALT Pending
Alkaline Phosphatase Pending
Vital Signs:
Vital Signs
Temp Pulse Resp BP Pulse Ox
98.5 F 90 21 155/78 96
06/01/25 11:05 06/01/25 10:45 06/01/25 10:45 06/01/25 10:30 06/01/25 11:02
I&O
05/31/25 06/01/25 06/02/25
06:59 06:59 06:59
Intake Total 1010 / 1010 620.6 / 632.8 134.4 / 134.4
Output Total 899.0 / 909.0 175 / 175
Balance 1010 / 1010 -278.4 / -276.2 -40.6 / -40.6
Review of Systems
-
Unable to obtain full review of systems at this time due to: Acuity
History Source: Patient
All other systems: Reviewed and negative
Physical Exam
-
General: Conversant
HEENT: Moist Mucous Membranes, Anicteric, PERRLA and Other (ngt)
Respiratory: Clear to Auscultation; Negative Wheezes, Rales, Rhonchi or Accessory Resp Muscle Use
Cardiac: Regular Rhythm and S1/S2; Negative Murmur
GI: Soft, Nontender, Nondistended and Normal Bowel Sounds
Musculoskeletal: No Edema
Skin: Warm and Dry; Negative Rash or Ulcers
Neuro: Awake, Alert, Oriented (To self, hospital) and Other (Left arm/leg 3 out of 5 strength, [id number] dysmetria, RUE/RLE 5 out of 5 strength, shaking of L foot, left gaze preference)
Psych: Confused
Data Reviewed
-
CT Scan: Image personally visualized and interpreted, Report Reviewed by me, Discussed with Physician, Discussed with Nurse, Discussed with Patient and Discussed with Family
MRI: Image personally visualized and interpreted, Report Reviewed by me, Discussed with Physician, Discussed with Nurse, Discussed with Patient and Discussed with Family
Labs: Labs Reviewed by me, Discussed with Physician and Discussed with Family
Old Records: Reviewed
[2025-06-01] MEDS: DECADRON 6 MG IV ×2 (14:40→21:08)
[2025-06-01] MEDS: OMNIPAQUE 50 ML PO (14:41)
[2025-06-01 15:01] LABS: ALT (SGPT) 52 U/L (0-35); AST (SGOT) 85 U/L (14-36); Albumin 3.6 g/dl (3.5-5.0); Alkaline Phosphatase 119 U/L (38-126); Total Protein 6.2 g/dl (6.3-8.2)
--- NOTE | 2025-06-01 15:20 | PTCARENOTE ---
Pt not offering any complaints; Resting comfortably in bed, denies pain. CT pending, started oral contrast administered via NG tube. AAO x 3, drowsy; Can make needs known; Family present at bedside. cEEG connected; NSR on monitor. Will
continue to monitor and assess.
--- NOTE | 2025-06-01 15:52 | CM ---
05/30 MRI brain with lesions and edema, lung mass with very likely mets to brain, EEG abnormal activity, seizure activity, unresponsive on 05/31 and intubated. Oncology plan CT when stable and then biopsy. NOW EXTUBATED. Discharge POC: TBD.
[2025-06-01 16:38] LABS: Ferritin 424.0 ng/ml (11.1-264.0)
[2025-06-01 17:09] LABS: Folate 18.1 ng/ml (2.76-20); Vitamin B12 868 pg/ml (239-931)
[2025-06-01] MEDS: LOVENOX 40 MG SC (18:28)
[2025-06-01] MEDS: NOVOLOG FLEXPEN-LOW RESISTANCE SC (18:31)
[2025-06-01 18:42] LABS: Glucose - Point of Care 143 mg/dl (70-99)
--- NOTE | 2025-06-01 20:00 | PTCARENOTE ---
Assumed care at 1900. Continuous EEG in place. at bedside participating in care. NIH 8. Patient restless at times. NSR on the monitor. See worklist for nursing shift assessment.
[2025-06-01] MEDS: LIPITOR 20 MG TUBE (20:30)
[2025-06-02] VITALS (28 sets, daily range): BP systolic 120–176; BP diastolic 65–114; PULSE 85; O2SAT 97
--- NOTE | 2025-06-02 | PTCARENOTE ---
No change from previous assessment. NSR on the monitor. See worklist for neurocheck details. Patient continues to be restless at times.
[2025-06-02 00:09] LABS: Glucose - Point of Care 141 mg/dl (70-99)
[2025-06-02] MEDS: NOVOLOG FLEXPEN-LOW RESISTANCE SC ×3 (00:27→11:51)
[2025-06-02] MEDS: TRANDATE 10 MG IV ×3 (00:52→16:45)
[2025-06-02] MEDS: NSS 500 IV (02:24)
--- NOTE | 2025-06-02 04:00 | PTCARENOTE ---
Patient self removed continuous EEG at 0145 during episode of confusion. Urine output decreased with 20-25 mls/hr output the last couple of hours. ICU provider made aware and ordered 500 ml bolus followed by maintainence fluids.
--- NOTE | 2025-06-02 04:00 | PTCARENOTE ---
Addendum entered by Asia Adma RN 06/02/25 05:24:
Patient weaned to room air. PRN labetolol given for HTN.
Original Note:
Patient self removed continuous EEG at 0145 during episode of confusion. Assessment remains unchanged except that urine output decreased to 20-25 mls/hr output for the last couple of hours. ICU provider made aware and ordered 500 ml bolus followed
by maintainence fluids.
[2025-06-02 04:41] LABS: Hematocrit 31.2 % (37.0-47.0); Hemoglobin 10.2 g/dL (12.0-16.0); Mean Corp Hgb Conc. 32.7 g/dL (33.0-37.0); Mean Corpuscular Volume 104.3 fL (81.0-99.0); Nucleated Red Blood Cells % 0 %; Platelet Count 222 10^3/uL (130-400); Red Cell Dist. Width 12.8 % (11.5-14.5)
[2025-06-02 05:01] LABS: ALT (SGPT) 59 U/L (0-35); AST (SGOT) 85 U/L (14-36); Albumin 3.7 g/dl (3.5-5.0); Alkaline Phosphatase 107 U/L (38-126); Blood Urea Nitrogen 20 mg/dl (7-17); Calcium 8.9 mg/dl (8.4-10.2); Carbon Dioxide 22 mmol/L (22-30); Chloride 102 mmol/L (98-107); Estimated Creatinine Clearance 70 ml/min; Glucose 112 mg/dl (70-99); Potassium 3.9 mmol/L (3.5-5.1); Sodium 134 mmol/L (135-145); Total Protein 6.3 g/dl (6.3-8.2); eGFR > 60.00
[2025-06-02] MEDS: NSS 1000 IV (05:01)
[2025-06-02] MEDS: DECADRON 6 MG IV ×3 (05:12→21:36)
[2025-06-02 05:40] LABS: Glucose - Point of Care 121 mg/dl (70-99)
--- NOTE | 2025-06-02 06:28 | PTCARENOTE ---
Neurology made aware via TT that patient self removed continuous EEG.
--- NOTE | 2025-06-02 07:40 | EEGC.RPT ---
Continuous EEG Report
Recording
Start Date of Data Reviewed: 06/01/25
Start Time of Data Reviewed: 07:00
End Date of Data Reviewed: 06/02/25
End Time of Data Reviewed: 07:00
Type of EEG: Continuous
Done with Video Recording: Yes
Study Sequence: Continuation of ongoing Study
Electrocardiogram: Unremarkable
Patient Status: Inpatient
Report
24 HOUR CONTINUOUS EEG REPORT
Moderately abnormal study for age based on bursts of OIRDA and generalized slowing demonstrated bihemispherically equally
CLINICAL CORRELATION:
This study was suggestive of a occipitally predominant rhythmic epileptogenic pattern. In addition, there was a suggested of cortical dysfunction. In comparison with the initial study, this study has remained relatively unchanged.
Clinical correlation is advised.
METHODS:
A 21 channel digitized electroencephalogram (EEG) was performed at the bedside in the intensive care unit. The 10/20 international system of electrode placement was used with ECG and lateral/vertical eye movements recorded. Persyst QEEG monitoring
was performed.
ELECTROENCEPHALOGRAPHER IMPRESSION(S):
Quality of study
Good with progressive loss signal after approximately 23:30 hours
Background
Medium amplitude
Fair anterior-posterior voltage gradient differentiation
Theta maximal background demonstrated
Sleep
Drowsiness present
Stage II sleep was characterized by sleep spindles
ECG
Normal rhythm
Abnormal Activity
Intermittently during the study were bilaterally occipitally predominant, right slightly greater than left in medium amplitude, rhythmic delta activity (1.5 to 2/s) taking place every other second, discharges lasting for up to 10 seconds. This
appearance was similar to occipital intermittent rhythmic delta activity (OIRDA).
--- NOTE | 2025-06-02 07:45 | PTCARENOTE ---
Assumed care of Pt at shift change; Pt restless in bed, difficult to redirect. Disoriented/confused at times; NIH = 9; Denies pain; RAC INT unable to flush, removed. LAC INT leaking at site, removed. Pat ORTIZ placed new IV into R wrist. R nare
[place] sump intact, capped. Will continue to monitor and assess.
[2025-06-02] MEDS: LEXAPRO 10 MG TUBE (08:23)
[2025-06-02] MEDS: FOLVITE 1 MG TUBE (08:23)
[2025-06-02] MEDS: DIOVAN 320 MG TUBE (08:23)
[2025-06-02] MEDS: KEPPRA 1500 MG IV (09:23)
[2025-06-02] MEDS: PROTONIX IV 40 MG IV (09:24)
[2025-06-02] MEDS: NSS (PRESERVATIVE FREE) 10 ML IV (09:24)
[2025-06-02] MEDS: TENORMIN 50 MG TUBE (09:24)
[2025-06-02] MEDS: NORVASC 5 MG TUBE (09:24)
[2025-06-02] MEDS: THIAMINE INJECTION 200 MG IV (09:24)
[2025-06-02] MEDS: MIRALAX TUBE (09:24)
[2025-06-02] MEDS: VIMPAT 200 MG IV (09:25)
--- NOTE | 2025-06-02 09:35 | W.PN.NEURO.1 ---
Today's Communication / Plan
-
Consider restart of continuous EEG monitoring if new seizure-like events
Continue levetiracetam 1000 mg twice a day
Continue lacosamide 200 mg twice a day
Continue high-dose dexamethasone 6 mg every 8 hours
Continue thiamine replacement.
Appreciate oncology evaluation. Currently, not obvious that neurosurgery is required as a websphere consultant at this time
Seizure precautions
Rehabilitation evaluations and treatment
Neuro Assessment/Plan
Assessment
IMPRESSIONS/RECOMMENDATIONS:
Abrupt onset of gait difficulty, depth perception difficulty and falling with CT of the head suggesting posterior reversible encephalopathy syndrome, and report of chronic daily alcohol usage.
MRI brain demonstrates an enhancing lesion in the right parietal lobe, left parietao-occipital junction, and a third in the medial left parietal lobe associated with extensive vasogenic edema; uncertain if this is metastatic disease vs primary brain
neoplasm. Left-sided ataxia, gaze preference this morning consistent with seizure activity.
-CT head 05/30/25: Pronounced hypoattenuation centered within the white matter of the parieto-occipital lobes. 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 Mild cerebral atrophy and mild small vessel change.
-CTA head/neck 05/30/25: No evidence of acute vascular pathology. Incompletely imaged right lower lobe pleural-based mass consistent with malignancy until proven otherwise. Moderate mediastinal lymphadenopathy and several tiny bilateral upper lobe
pulmonary nodules suggesting metastatic disease. Significant bilateral parietal lobe vasogenic edema with mass effect and probable underlying masses likely metastatic disease considering the above findings. Multilevel degenerative disease.
Progressed at all levels Mild reversal of cervical spinal lordosis. This can be seen with spasm. New. Mild atrophy.
-MRI brain 05/30/25: 3 enhancing lesions as described, one centered in the posterior right parietal lobe, one at the left parieto-occipital junction, and a third small enhancing lesion within the posterior and medial left parietal lobe. Extensive
white matter edema within the parietal and occipital lobes, slightly greater on the right compared to the left. Findings very likely represents metastatic disease to the brain, somewhat unusual distribution. Other differential considerations would
seem to be significantly less likely. This would be an atypical appearance for abscesses, although could still be considered. Multifocal primary brain neoplasm such as glioblastoma multiforme could be considered.
Patient initiated on dexamethasone 05/30/2025
Patient initiated on levetiracetam 05/31/2025 followed by lacosamide
Continuous EEG monitoring started 05/31/2025 indicated occipital intermittent rhythmic delta activity.
Plan
Consider restart of continuous EEG monitoring
Consider restart of continuous EEG monitoring if new seizure-like events
Continue levetiracetam 1000 mg twice a day
Continue lacosamide 200 mg twice a day
Continue high-dose dexamethasone 6 mg every 8 hours
Continue thiamine replacement.
Appreciate oncology evaluation. Currently, not obvious that neurosurgery is required as a websphere consultant at this time
Seizure precautions
Rehabilitation evaluations and treatment
We will follow peripherally
Subjective/Objective
Subjective Data
Date of Service: June 02, 2025
Still having vision issues.
Objective Data
Vital Signs
Temp Pulse Resp BP Pulse Ox
36.9 C 86 18 120/65 91
06/02/25 08:00 06/02/25 06:00 06/02/25 06:00 06/02/25 06:00 06/02/25 06:00
Lab Results
06/02/25 04:24
06/02/25 04:24
PT 14.2 Sec (11.4-14.6) 05/31/25 21:25
INR 1.07 05/31/25 21:25
APTT 27.0 Sec (23.4-35.0) 05/31/25 21:25
Sodium 134 mmol/L (135-145) L 06/02/25 04:24
Potassium 3.9 mmol/L (3.5-5.1) 06/02/25 04:24
BUN 20 mg/dl (7-17) H 06/02/25 04:24
Glucose 112 mg/dl (70-99) H 06/02/25 04:24
Calcium 8.9 mg/dl (8.4-10.2) 06/02/25 04:24
Phosphorus 4.1 mg/dl (2.5-4.5) 05/30/25 13:16
Vitamin B12 868 pg/ml (239-931) 06/01/25 03:53
Ur Buprenorphine Negative (Negative) 05/30/25 15:28
Patient Allergies
Sulfa (Sulfonamide Antibiotics) Allergy (Verified 05/30/25 12:05)
Rash
Review of Systems
-
History Source: Patient and Family
All other systems: Reviewed and negative
EENT: Negative Swallowing Difficulty
Neuro: Negative Dizzy or Headache
Physical Exam
-
General: No Apparent Distress and Obese
Eyes: Round OU and No Ptosis
HEENT: Normocephalic and Atraumatic
Neck: Full Range of Motion
Respiratory: No Dyspnea
Cardiac: No JVD
GI: Non-distended
Extremities: No Clubbing, No Cyanosis and No Edema
Psych: Intact Judgement/Insight
Extended Neurological Exam
Mood & Affect: Mood Unremarkable and Affect Unremarkable
Attention Span & Concentration: Awake, Alert, Interactive and Other (Minimal difficulty with single step requests)
Memory: Able to Recall (Month, year, name of hospital)
Tremor: Hand Tremor Absent and Head Tremor Absent
Involuntary Movement: Other (Dystonic movement of the left upper extremity and synkinetic movement of the left upper and left lower extremity when left lower extremity is being tested)
Speech: Quality Unremarkable, Rate of Production Unremarkable and Mildly Reduced Output
Cranial Nerve II: Left Eye: Pupillary Size Unremarkable and Visual Hensley Grossly Intact
Cranial Nerve II: Right Eye: Pupillary Size Unremarkable and Visual Hensley Grossly Intact
Cranial Nerves III, IV, : Extraocular Movement: Grossly Intact
Cranial Nerve VII: Facial Symmetry: Normal Facial Symmetry
Cranial Nerve VIII: Hearing: Unremarkable Hearing to Normal Conversational Volume
Muscle Strength, Overall: Spontaneously Moves (Reduced spontaneous movements of the left upper extremity and left lower extremity relative to the right with a strong preference to right sided movement)
Muscle Bulk & Tone: Bulk Unremarkable and Tone Unremarkable
Pronator Drift: Drift in Left Upper Extremity and Drift in Left Lower Extremity; Negative Drift in Right Upper Extremity or Drift in Right Lower Extremity
Coordination: Negative [id number] Testing Unremarkable (LUE ataxia)
Gait & Station: Unable to Assess
Past History
Past History
ED Past Medical History: GERD, Hypercholesterolemia, Psychiatric and Other (Brain lesions bilaterally)
Medications
-
Medications:
Generic Name Dose Route Start Last Admin
Trade Name Freq PRN Reason Stop Dose Admin
Amlodipine Besylate 5 mg 05/31/25 21:00 06/02/25 09:24
Amlodipine 5 Mg Tablet TUBE 06/28/25 20:59 5 mg
BID MICHAEL Administration
Atenolol 50 mg 05/31/25 17:22 06/02/25 09:24
Atenolol 50 Mg Tablet TUBE 06/27/25 19:59 50 mg
BID MICHAEL Administration
Atorvastatin Calcium 20 mg 05/31/25 17:22 06/01/25 20:30
Atorvastatin (Lipitor) 20 Mg Tablet TUBE 06/27/25 21:59 20 mg
HS MICHAEL Administration
Dexamethasone Sodium Phosphate 6 mg 06/01/25 14:00 06/02/25 05:12
Dexamethasone 4 Mg/Ml 1 Ml Vial IV 06/28/25 13:59 6 mg
Q8H MICHAEL Administration
Dextrose 12.5 grams 05/31/25 22:00
Dextrose 50% (0.5 Grams/Ml) 50 Ml Syringe IV 06/28/25 21:59
[id number] PRN
hypoglycemia
Protocol
Enoxaparin Sodium 40 mg 06/01/25 18:00 06/01/25 18:28
Enoxaparin Sodium 40 Mg/0.4 Ml Syringe SC 06/29/25 17:59 40 mg
QPM MICHAEL Administration
Escitalopram Oxalate 10 mg 05/31/25 17:22 06/02/25 08:23
Escitalopram 10 Mg Tablet TUBE 06/28/25 07:59 10 mg
DAILY MICHAEL Administration
Folic Acid 1 mg 05/31/25 17:23 06/02/25 08:23
Folic Acid 1 Mg Tablet TUBE 06/28/25 07:59 1 mg
DAILY MICHAEL Administration
Glucagon 1 mg 05/31/25 22:00
Glucagon 1 Mg Vial IM 06/28/25 21:59
PRN PRN
hypoglycemia - no IV access
Protocol
Folic Acid 1 mg/ Sodium 50.2 mls @ 200.8 mls/hr 05/30/25 19:21
Chloride IV 06/27/25 19:20
DAILYPRN PRN
if NPO
Sodium Chloride 1,000 mls @ 50 mls/hr 06/02/25 04:30 06/02/25 05:01
Nss IV 1,000 mls
.Q20H MICHAEL Administration
Insulin Aspart 0 units 06/01/25 00:00 06/02/25 05:47
Insulin Aspart Low Resistance 300 Units/3 Ml Pen.Injctr SC 06/29/25 00:00 Not Given
Q6 MICHAEL
Protocol
Labetalol HCl 10 mg 05/31/25 04:43 06/02/25 05:12
Labetalol Hcl 5 Mg/1 Ml (20 Mg/4 Ml) Injection IV 06/28/25 04:41 10 mg
Q4HPRN PRN Administration
SBP >140/DBP >90
Lacosamide 200 mg 05/31/25 20:00 06/02/25 09:25
Lacosamide (10 Mg/Ml) 200 Mg/20 Ml Vial IV 06/14/25 19:59 200 mg
Q12H MICHAEL Administration
Levetiracetam 1,500 mg 05/31/25 20:00 06/02/25 09:23
Levetiracetam (100 Mg/Ml) 500 Mg/5 Ml Vial IV 06/28/25 19:59 1,500 mg
Q12 MICHAEL Administration
Lorazepam 1 mg 05/31/25 08:45
Lorazepam 2 Mg/Ml Vial IV 06/28/25 08:44
Q4HPRN PRN
seizure
Pantoprazole Sodium 40 mg 06/01/25 08:00 06/02/25 09:24
Pantoprazole Sodium 40 Mg/10 Ml Vial IV 06/29/25 07:59 40 mg
DAILY MICHAEL Administration
Polyethylene Glycol 17 grams 06/01/25 08:00 06/02/25 09:24
Polyethylene Glycol Powder 17 Grams Packet TUBE 06/29/25 07:59 Not Given
DAILY MICHAEL
Sodium Chloride 0 ml 05/30/25 19:21 05/31/25 09:17
Sodium Chloride 0.9% (Preservative Free) 10 Ml Vial IV 06/27/25 19:20 0.5 ml
PRN PRN Administration
To dilute IV Ativan
Protocol
Sodium Chloride 0 flush 05/30/25 20:00
Sodium Chloride 0.9% (Flush) Syringe IV 06/27/25 19:59
PER PROTOCOL IMCHAEL
Sodium Chloride 10 ml 06/01/25 08:00 06/02/25 09:24
Sodium Chloride 0.9% (Preservative Free) 10 Ml Vial IV 06/29/25 07:59 10 ml
DAILY MICHAEL Administration
Thiamine HCl 100 mg 06/02/25 20:00
Thiamine 100 Mg Tablet PO 06/30/25 19:59
BID MICHAEL
Valsartan 320 mg 05/31/25 19:30 06/02/25 08:23
Valsartan 160 Mg Tablet TUBE 06/28/25 19:29 320 mg
DAILY MICHAEL Administration
--- NOTE | 2025-06-02 10:29 | PTCARENOTE ---
NG tube removed per Dr. Pereira; Speech evaluated Pt and approved a diet to be added, will need assistance with food. Fluids stopped; Per Dr. Blevins - wait on food as they will attempt to do a bronchoscopy and biopsy today. Family present at
bedside and made aware of plan; No complaints offered by patient. Will continue to monitor and assess.
--- NOTE | 2025-06-02 11:19 | W.PN.HOSP.TC ---
Addendum entered and electronically signed by Magalie Wilson MD 06/02/25 14:17:
For CDI: Encephalopathy due to GERONTOLOGY AIDE lesions with vasogenic edema
Original Note:
Today's Communication/Plan
-
Improving but still with significant left side visual field deficits, neglect, dysmetria. PT/OT. Transfer to floor. Continue Keppra Decadron. Onc/pulm eval for biopsy
Assessment / Plan
Assessment / Plan
64F with HTN, HLD, EtOH use daily, P/W falls, decreased depth perception over several months.
GERONTOLOGY AIDE lesions with vasogenic edema
Seizure
Acute neurodeficits including left side weakness and seizure on 05/31, Loaded with IV Keppra, IV Ativan, IV Decadron, was still seizing on EEG, leading to acute encephalopathy, hypoxia, unable to protect airway. Was intubated 05/31, now extubated
06/01.
Metastatic cancer most likely lung primary based on imaging
Moved to ICU, now ok to transfer to floor as mental status improved and patient is stable
Continue maintenance Keppra 1500 mg IV every 12 and dexamethasone 6 mg IV every 8
Close monitoring, as needed IV Ativan
Neurology consulted, discussed with Dr. Matthew at bedside
CT chest/abdomen/pelvis performed, there is a pleural mass in the right lower lobe, and multiple tiny pulmonary nodules. Had a mammogram last year that did not show any evidence of malignancy
Oncology consulted, patient will likely need biopsy of pleural mass and outpt brain radiation. Pulm/cc consulted, possible inpt bronchoscopy.
HTN urgency
BP elevated on admit required multiple doses of IV labetalol
Now controlled
Continue p.o. valsartan, atenolol, valsartan
Goal BP less than 140s
Alcohol use disorder
Transaminitis
3 drinks per day
Continue thiamine, continue folate, monitor for alcohol withdrawal, on protocol, no e/o w/d
HLD
Statin
Depression
Escitalopram
Hypokalemia
Replete with oral K
Resolved
Hyponatremia
Mild, will monitor
Improved
Anemia
Hgb dropped from 11.3-9.9, for now we will monitor, normal B12/folate/high ferritin
DVT PPx
SCDs
DNR
Anticipated Discharge: > 48 hours
Subjective/Interval History
-
Date of Service: June 02, 2025
Patient states she is feeling well, notes peripheral vision loss, denies any other issues, no headache, N/V/ABD pain, chest pain, shortness of breath, fevers, chills. Son and at bedside. Discussed care with neurology and oncology.
Objective Data
-
Labs:
Laboratory Results
06/02/25
04:24
WBC 8.6
Hgb 10.2 L
Hct 31.2 L
Plt Count 222
Sodium 134 L
Potassium 3.9
Chloride 102
Carbon Dioxide 22
BUN 20 H
Creatinine 0.7
Glucose 112 H
Calcium 8.9
Total Bilirubin 0.8
AST 85 H
ALT 59 H
Alkaline Phosphatase 107
Vital Signs:
Vital Signs
Temp Pulse Resp BP Pulse Ox
98.4 F 86 18 120/65 91
06/02/25 08:00 06/02/25 06:00 06/02/25 06:00 06/02/25 06:00 06/02/25 06:00
I&O
06/01/25 06/02/25 06/03/25
06:59 06:59 06:59
Intake Total 620.6 / 632.8 1694.4 / 1744.4 150 / 150
Output Total 899.0 / 909.0 736 / 756 63 / 63
Balance -278.4 / -276.2 958.4 / 988.4
Review of Systems
-
History Source: Patient
All other systems: Reviewed and negative
Physical Exam
-
General: No Apparent Distress and Conversant
HEENT: Moist Mucous Membranes, Anicteric and PERRLA
Respiratory: Clear to Auscultation; Negative Wheezes, Rales, Rhonchi or Accessory Resp Muscle Use
Cardiac: Regular Rhythm and S1/S2; Negative Murmur
GI: Soft, Nontender, Nondistended and Normal Bowel Sounds
Musculoskeletal: No Edema
Skin: Warm and Dry; Negative Rash or Ulcers
Neuro: Awake, Alert, Oriented (To self, hospital) and Other (Left arm/leg 4 out of 5 strength, [id number] dysmetria, RUE/RLE 5 out of 5 strength, left gaze preference, eyes don't track finger to Left)
Psych: Calm and Intact Judgement/Insight
Data Reviewed
-
CT Scan: Image personally visualized and interpreted, Report Reviewed by me, Discussed with Physician, Discussed with Nurse, Discussed with Patient and Discussed with Family
MRI: Image personally visualized and interpreted, Report Reviewed by me, Discussed with Physician, Discussed with Nurse, Discussed with Patient and Discussed with Family
Labs: Labs Reviewed by me, Discussed with Physician and Discussed with Family
Old Records: Reviewed
--- NOTE | 2025-06-02 12:02 | W.PN.INTV ---
Today's Communication / Plan
Recommendations
- NPO, plan for Bronchoscopy and EBUS-TBNA
- Stable for transfer from ICU
- Pulmonary team will continue to follow along
Assessment
-
In brief she presented to the hospital on 111 after falls. Patient had been declining over the last few days with decreased appetite as well as having difficulty with depth perception as well as falls. Workup including CT head, CTA head and neck
along with MRI brain which was suspicious for metastatic brain lesion along with a lung mass as well as mediastinal lymphadenopathy. Patient was evaluated by neurology and oncology service. Earlier in the day she was transferred to IMU for concern
of ongoing seizures and need for continuous EEG and antiseizure medications. Throughout the day patient became more lethargic, developed hypoxia and sonorous respiration and was initiated on BiPAP. Over coming hours patient continued to stay
unresponsive and then urgent critical care consult was requested. Patient was emergently evaluated and was noted to be unresponsive on BiPAP. Discussed with patient's and son at bedside who agreed with proceeding with intubation and
mechanical ventilation.
#1. Acute respiratory failure with inability to protect airway (Intubated 05/31 - Extubated 06/01)
- Respiratory failure in the setting of severe encephalopathy and inability to protect airway, high aspiration risk. Likely in the setting of seizures, postictal state and sedation related to medications
- Intubated on 05/31.
- 06/01, propofol weaned off, tolerated SAT SBT well, extubated successfully. Strong cough and gag reflex. More awake and alert.
- 06/02, awake, alert. Saturating well on room air
#2. Acute encephalopathy, newly detected seizure disorder along with suspected brain metastatic lesions with edema
- Discussed with neurology service, continue thiamine replacement, Vimpat as well as Keppra as ordered.
- CT and MRI reviewed
- Reported history of alcohol use, presentation not typical for alcohol withdrawal. Continue thiamine replacement.
- Continue IV Decadron
- 06/01. More awake, alert. Extubated.
- 06/02. Continues to have cognitive deficit.
#3. Metastatic malignancy of unclear primary
- Right lower lobe mass and mediastinal lymphadenopathy noted on imaging, high likelihood of primary lung cancer
- Cerebral lesions likely metastasis
- Oncology service on case. D/w Dr. Blevins. In view of brain metastasis and need for expedited work up, oncology service recommends inpatient tissue sampling.
- Keep NPO. Plan for Bronchoscopy and EBUS-TBNA.
- D/w patient and her at bedside. Agreable to proced.
#4. History of alcohol use
- Continue thiamine replacement
Other medical diagnoses:
- Hypertension
- Hyperlipidemia
- History of depression
- Mild hyponatremia
SCDs for DVT prophylaxis
IV Protonix for GI prophylaxis
Critical Care time 48 mins -- The patient is admitted for acute critical illness for the treatment of vital organ failure and/or prevention of further life-threatening conditions. Total care includes time spent in review of history, physical exam,
medications, hemodynamic/ventilator parameters, laboratory data, imaging and discussion with house staff, pharmacy, respiratory therapy, wardsperson, and nursing.
Data:
CT Head 05/2025: Stable appearance of CT of the head compared to most recent unenhanced CT of May 30, 2025.
CTA head/Neck 05/2025: No evidence of acute vascular pathology.
Incompletely imaged right lower lobe pleural-based mass consistent with malignancy until proven otherwise.
Moderate mediastinal lymphadenopathy and several tiny bilateral upper lobe pulmonary nodules suggesting metastatic disease.
Significant bilateral parietal lobe vasogenic edema with mass effect and probable underlying masses likely metastatic disease considering the above findings. The patient is scheduled for MRI examination today.
Multilevel degenerative disease. Progressed at all levels
Mild reversal of cervical spinal lordosis. This can be seen with spasm. New
Mild atrophy.
MRI Brain 05/2025: 3 enhancing lesions as described, one centered in the posterior right parietal lobe, one at the left parieto-occipital junction, and a third small enhancing lesion within the posterior and medial left parietal lobe. Extensive
white matter edema within the parietal and occipital lobes, slightly greater on the right compared to the left.
Findings very likely represents metastatic disease to the brain, somewhat unusual distribution. Other differential considerations would seem to be significantly less likely. This would be an atypical appearance for abscesses, although could still be
considered. Multifocal primary brain neoplasm such as glioblastoma multiforme could be considered.
Subjective Dataa
Subjective Data
Date of Service:
Date of Service: June 02, 2025
Subjective:
Patient comfortably lying in bed in no acute distress.
Review of Systems
Genitourinary: Other (All 14 systems reviewed and negative except as stated above in the history of present illness.)
Objective Data
Data Reviewed
Vital Signs / I&O / Oxygen:
Vital Signs
Temp Pulse Resp BP Pulse Ox
98.4 F 86 18 120/65 98
06/02/25 08:00 06/02/25 06:00 06/02/25 06:00 06/02/25 06:00 06/02/25 08:20
Intake and Output
06/01/25 06/02/25 06/03/25
06:59 06:59 06:59
Intake Total 620.6 / 632.8 1694.4 / 1744.4 150 / 150
Output Total 899.0 / 909.0 736 / 756 103 / 103
Balance -278.4 / -276.2 958.4 / 988.4 47 / 47
SaO2 [CPAP/PSV] 97
SaO2 [A/C] 98
SaO2 98
Nasal Cannula flow liters per 3
minute
Physical Exam
General: Comfortable
HEENT: Normocephalic
Cardiovascular: S1-S2
Respiratory: Clear and Non-Labored Respirations
GI: Soft and Non Distended
Neurology: Awake, Alert and Other (Patient answers questions appropriately times and at times noticed to have significant cognitive deficit. Not fully oriented)
Skin: Warm
Labs/Micro/Reports
Lab Data
06/02/25 04:24
06/02/25 04:24
[2025-06-02 12:04] LABS: Glucose - Point of Care 127 mg/dl (70-99)
--- NOTE | 2025-06-02 12:08 | W.PN.ONC ---
Today's Communication / Plan
-
Continue dexamethasone
AEDs per neurology
CT scan chest abdomen pelvis reviewed
Plan for treatment reviewed with public health registrar and neurology
Plan for biopsy [place] for diagnostic purposes and NGS testing
Patient will need radiation therapy will alert radiation to expedite outpatient therapy
NPO for bronchoscopy
Impression
Impression
STUDENT DEAN lesions w/ edema, causing seizure activity
lung/arron masses in the chest
Alcohol use, h/o remote smoking.
Subjective/Objective
Subjective/Objective
Patient with mild improvement in STUDENT DEAN symptoms.
Vital Signs:
Vital Signs
Temp Pulse Resp BP Pulse Ox
98.4 F 86 18 120/65 98
06/02/25 08:00 06/02/25 06:00 06/02/25 06:00 06/02/25 06:00 06/02/25 08:20
Exam unchanged
Lab Results:
Laboratory Data
WBC 8.6 10^3/uL (4.8-10.8) 06/02/25 04:24
Hgb 10.2 g/dL (12.0-16.0) L 06/02/25 04:24
Plt Count 222 10^3/uL (130-400) 06/02/25 04:24
PT 14.2 Sec (11.4-14.6) 05/31/25 21:25
INR 1.07 05/31/25 21:25
APTT 27.0 Sec (23.4-35.0) 05/31/25 21:25
eGFR > 60.00 06/02/25 04:24
--- NOTE | 2025-06-02 12:38 | PN.CDI ---
CDI
- -
CDI:
Physician Documentation Request
Admit Date: 05/31/25 14:03
Dear Doctor Steve,
Please review the following and provide your response in the progress notes.
Clinical Indicators:
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
Progress note 05/31, ' Patient became hypoxic, sonorous, unresponsive. She was placed on BiPAP with improvement in her oxygen sat, however her mental status did not improve. ...'
Progress notes 06/01%06/02, ' Acute neurodeficits including left side weakness and seizure on 05/31, Loaded with IV Keppra, IV Ativan, IV Decadron, was still seizing on EEG, leading to acute encephalopathy, hypoxia, unable to protect airway...'
Please specify the known or suspected type of the documented encephalopathy.
Metabolic
Toxic
Toxic metabolic
Due to a specified condition
Other ( please specify)
Use of terms such as suspected, likely, concern for, or probable (associated with a specific diagnosis that is being evaluated, monitored, or treated as if it exists) are acceptable and can be coded in the inpatient setting, when documented at the
time of discharge.
Thank you,
Elaine Pang RN
CDI Specialist
[facility]
Please use your independent medical judgment in providing your response.
--- NOTE | 2025-06-02 13:04 | PTOTSP ---
Speech Therapy Evaluation:
Pt with acute risk factors of dysphagia including complex hospitalization + for PRES, CYANIDE CASE HARDENER lesions with vasogenic edema, malignancy in brain and lungs (new), seizures, and acute respiratory failure with inability to protect airway (Intubated 05/31 -
Extubated 06/01). At bedside, pt with significant difficulty with bolus retrieval due to visual-perceptual impairments. Pt demonstrated reaching for items in opposite visual field, attempting to grasp or consume items that were no longer present,
and attempting to drink from spoon. Once successful retrieval completed with GAS TENDER assistance, pt demonstrated grossly functional oral phase. There were no s/sx of aspiration across trials. WBC WNL and pt on room air. Current CXR without acute disease
of the chest.
Recommend:
1. Regular solids and thin liquids
2. Meds as tolerated
3. 1:1 assistance with PO intake due to difficulty self-feeding
4. Low threshold for instrumental assessment if concerns for aspiration arise or change in medical status
5. GAS TENDER to follow
--- NOTE | 2025-06-02 13:30 | PTCARENOTE ---
Rec'd call regarding Bronchoscopy/biopsy, report provided. Report provided to Kemar ORTIZ on , Pt to be going to rm [id number] following Bronchoscopy. Sosa removed and 1400 meds given; Pt's belongings sent with transport.
[2025-06-02 14:47] LABS: Glucose - Point of Care 122 mg/dl (70-99)
[2025-06-02] MEDS: DUONEB 3 ML INH (15:13)
--- NOTE | 2025-06-02 15:19 | W.PN.UPDATE ---
Update Note
Progress Note Update
06/02, Bronchoscopy and EBUS performed.
Right paratracheal lymph node enlarged. TBNA performed x 7. JERRELL concerning for abnormal cells, await final pathology result.
Station 7 also enlarged, not sampled
RLL BAL and Endobronchial brushings obtained.
Post procedure CXR unremarkable.
[2025-06-02] MEDS: VIMPAT 200 MG PO (16:45)
[2025-06-02] MEDS: LOVENOX 40 MG SC (16:45)
[2025-06-02] MEDS: VITAMIN B1 100 MG PO (20:02)
[2025-06-02] MEDS: NORVASC 5 MG PO (20:02)
[2025-06-02] MEDS: KEPPRA 1500 MG PO (20:02)
[2025-06-02] MEDS: TENORMIN 50 MG PO (20:03)
[2025-06-02] MEDS: LIPITOR 20 MG PO (21:36)
--- NOTE | 2025-06-02 21:45 | PTCARENOTE ---
Lab for paraneoplastic Abs (PCCA/PAOLO) ordered and not collected. Lab notified and told to reschedule for morning. Awaiting order for lab reschedule.
[2025-06-02] MEDS: NSS (PRESERVATIVE FREE) 0.25 ML IV (23:52)
[2025-06-02] MEDS: ATIVAN 0.5 MG IV (23:53)
[2025-06-03] VITALS (8 sets, daily range): BP systolic 144–172; BP diastolic 69–100; PULSE 83; O2SAT 96
--- NOTE | 2025-06-03 00:06 | PTCARENOTE ---
Pt MSAS is 6. Pt is restless and attempts to get out of bed frequently. pt is fall risk. Unable to re-orient. House provider made aware. Stat order for lorazepam and administered as ordered. Call noguera within reach and bed lowered to lowest position.
[2025-06-03] MEDS: TRANDATE 10 MG IV ×2 (03:11→21:42)
[2025-06-03] MEDS: DECADRON 6 MG IV ×3 (05:50→21:09)
[2025-06-03] MEDS: VIMPAT 200 MG PO ×2 (05:50→16:09)
[2025-06-03 07:11] LABS: Hematocrit 29.1 % (37.0-47.0); Hemoglobin 9.7 g/dL (12.0-16.0); Mean Corp Hgb Conc. 33.3 g/dL (33.0-37.0); Mean Corpuscular Volume 102.1 fL (81.0-99.0); Nucleated Red Blood Cells % 0 %; Platelet Count 232 10^3/uL (130-400); Red Cell Dist. Width 12.7 % (11.5-14.5)
[2025-06-03 07:46] LABS: ALT (SGPT) 67 U/L (0-35); AST (SGOT) 92 U/L (14-36); Albumin 3.3 g/dl (3.5-5.0); Alkaline Phosphatase 103 U/L (38-126); Blood Urea Nitrogen 19 mg/dl (7-17); Calcium 8.6 mg/dl (8.4-10.2); Carbon Dioxide 27 mmol/L (22-30); Chloride 102 mmol/L (98-107); Estimated Creatinine Clearance 70 ml/min; Glucose 114 mg/dl (70-99); Potassium 3.6 mmol/L (3.5-5.1); Sodium 136 mmol/L (135-145); Total Protein 5.8 g/dl (6.3-8.2); eGFR > 60.00
[2025-06-03] MEDS: VITAMIN B1 100 MG PO ×2 (08:57→21:08)
[2025-06-03] MEDS: NORVASC 5 MG PO ×2 (08:57→21:04)
[2025-06-03] MEDS: KEPPRA 1500 MG PO (08:58)
[2025-06-03] MEDS: DIOVAN 320 MG PO (08:58)
[2025-06-03] MEDS: PROTONIX 40 MG PO (08:58)
[2025-06-03] MEDS: TENORMIN 50 MG PO ×2 (08:58→21:08)
[2025-06-03] MEDS: LEXAPRO 10 MG PO (08:58)
[2025-06-03] MEDS: FOLVITE 1 MG PO (08:58)
[2025-06-03] MEDS: MIRALAX 17 GRAMS PO (08:59)
--- NOTE | 2025-06-03 09:08 | W.PN.NEURO.1 ---
Addendum entered and electronically signed by Godwin Matthew MD 06/03/25 14:15:
EEG and CT of the head demonstrate diffuse slowing and no changes respectively.
Will decrease dosing of levetiracetam from 1500 mg twice a day to dosing of 1000 mg twice a day. Consider decrease of lacosamide dosing from 200 mg twice a day if patient does not have significant improvement in awareness
Initiate BiPAP due to witnessed apneas during sleep.
Addendum entered and electronically signed by Godwin Matthew MD 06/03/25 09:41:
Studies reviewed.
I have personally examined the patient. I reviewed and agree with the SOLAR INSTALLATION SUPERVISOR's Note.
My addenda:
Awake after stimulation, interactive. No acute distress.
Speech intact.
Follows 2-step requests w/ mild difficulty. No tremor. Continued dystonic movement left upper extremity with perseverative behaviors.
Extra-ocular movements grossly intact.
Facial movements full and symmetric. Hearing intact to normal conversational volume.
Normal UE movements bilaterally.
Neck: full ROM.
Chest: no dyspnea
Heart: no JVD
Ext: (-) Clubbing, (-) Cyanosis, (-) Edema
IMPRESSIONS/RECOMMENDATIONS:
Abrupt onset of worsening encephalopathy on June 03 2025 in a patient with known posterior presumed mets bilaterally in the occipital lobes
Check new CT of head without contrast
Check greater than 1 hour EEG with consideration for return to continuous EEG monitoring if worsening of previously abnormal posterior rhythms
With the question of worsening edema or shift patient has observed apneas and loud snoring with sleep,initiate BiPAP 12 over 8 cm water pressure
Continue dexamethasone
Consider reducing dosage of both levetiracetam and lacosamide dependent on above testing
Continue thiamine
Goal of normotension
Goal of normoglycemia
Will continue to follow patient.
Original Note:
Documented by User: Anika Hutchinson NP 06/03/25 09:19
Today's Communication / Plan
-
.
Neuro Assessment/Plan
Assessment
IMPRESSIONS/RECOMMENDATIONS:
Abrupt onset of gait difficulty, depth perception difficulty and falling with CT of the head suggesting posterior reversible encephalopathy syndrome, and report of chronic daily alcohol usage.
MRI brain demonstrates an enhancing lesion in the right parietal lobe, left parietao-occipital junction, and a third in the medial left parietal lobe associated with extensive vasogenic edema; uncertain if this is metastatic disease vs primary brain
neoplasm. Left-sided ataxia, gaze preference this morning consistent with seizure activity.
-CT head 05/30/25: Pronounced hypoattenuation centered within the white matter of the parieto-occipital lobes. 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 Mild cerebral atrophy and mild small vessel change.
-CTA head/neck 05/30/25: No evidence of acute vascular pathology. Incompletely imaged right lower lobe pleural-based mass consistent with malignancy until proven otherwise. Moderate mediastinal lymphadenopathy and several tiny bilateral upper lobe
pulmonary nodules suggesting metastatic disease. Significant bilateral parietal lobe vasogenic edema with mass effect and probable underlying masses likely metastatic disease considering the above findings. Multilevel degenerative disease.
Progressed at all levels Mild reversal of cervical spinal lordosis. This can be seen with spasm. New. Mild atrophy.
-MRI brain 05/30/25: 3 enhancing lesions as described, one centered in the posterior right parietal lobe, one at the left parieto-occipital junction, and a third small enhancing lesion within the posterior and medial left parietal lobe. Extensive
white matter edema within the parietal and occipital lobes, slightly greater on the right compared to the left. Findings very likely represents metastatic disease to the brain, somewhat unusual distribution. Other differential considerations would
seem to be significantly less likely. This would be an atypical appearance for abscesses, although could still be considered. Multifocal primary brain neoplasm such as glioblastoma multiforme could be considered.
Patient initiated on dexamethasone 05/30/2025
Patient initiated on levetiracetam 05/31/2025 followed by lacosamide
Continuous EEG monitoring started 05/31/2025 indicated occipital intermittent rhythmic delta activity.
Plan
Restarting continuous EEG due to increased confusion.
Continue levetiracetam 1000 mg twice a day
Continue lacosamide 200 mg twice a day
Continue high-dose dexamethasone 6 mg every 8 hours
Continue thiamine replacement.
Appreciate oncology evaluation. Currently, not obvious that neurosurgery is required as a [employer] consultant at this time
Seizure precautions
Rehabilitation evaluations and treatment
Subjective/Objective
Subjective Data
Date of Service: June 03, 2025
Patient is more confused again today. She reports that she is at home and that no family has visited her, when her spouse is here daily.
Objective Data
Vital Signs
Temp Pulse Resp BP Pulse Ox
98.2 F 87 18 172/83 93
06/03/25 07:44 06/03/25 07:44 06/03/25 07:44 06/03/25 07:44 06/03/25 07:44
Lab Results
06/03/25 06:38
06/03/25 06:38
PT 14.2 Sec (11.4-14.6) 05/31/25 21:25
INR 1.07 05/31/25 21:25
APTT 27.0 Sec (23.4-35.0) 05/31/25 21:25
Sodium 136 mmol/L (135-145) 06/03/25 06:38
Potassium 3.6 mmol/L (3.5-5.1) 06/03/25 06:38
BUN 19 mg/dl (7-17) H 06/03/25 06:38
Glucose 114 mg/dl (70-99) H 06/03/25 06:38
Calcium 8.6 mg/dl (8.4-10.2) 06/03/25 06:38
Phosphorus 4.1 mg/dl (2.5-4.5) 05/30/25 13:16
Vitamin B12 868 pg/ml (239-931) 06/01/25 03:53
Ur Buprenorphine Negative (Negative) 05/30/25 15:28
Patient Allergies
Sulfa (Sulfonamide Antibiotics) Allergy (Verified 05/30/25 12:05)
Rash
Review of Systems
-
History Source: Patient
Neuro: Weakness; Negative Dizzy, Headache, Numbness, Ataxia, Tremors or Speech Problem
Physical Exam
-
General: Appears Chronically Ill
Eyes: No Ptosis and PERRLA
HEENT: Normocephalic and Atraumatic
Neck: Full Range of Motion
GI: Non-distended
Extremities: No Clubbing, No Cyanosis and No Edema
Psych: Confused
Extended Neurological Exam
Attention Span & Concentration: Awake, Interactive and Closes Eyes after Stimulation
Memory: Reduced (disoriented to place, time, situation)
Tremor: Hand Tremor Absent and Head Tremor Absent
Involuntary Movement: None
Speech: Quality Unremarkable, Rate of Production Unremarkable and Expressive Aphasia (perseverates)
Cranial Nerve II: Left Eye: Pupillary Reactivity Unremarkable, Pupillary Size Unremarkable and Visual Hensley Intact
Cranial Nerve II: Right Eye: Pupillary Reactivity Unremarkable, Pupillary Size Unremarkable and Visual Hensley Intact
Cranial Nerves III, IV, : Extraocular Movement: Extraocular Movement Full in all Directions
Cranial Nerve VII: Facial Symmetry: Normal Facial Symmetry
Cranial Nerve VIII: Hearing: Unremarkable Hearing to Normal Conversational Volume
Muscle Strength, Overall: Reduced on Left (LUE 4/5, otherwise full throughout)
Muscle Bulk & Tone: Reduced Tone (LUE)
Pronator Drift: Drift in Left Upper Extremity
Coordination: Negative [id number]-fogl-vgipms Testing Unremarkable (LUE ataxia)
Data Reviewed
-
Labs: Report Reviewed
Reviewed with: Physician and Patient
Medications
-
Active Medications
Generic Name Dose Route Start Last Admin
Trade Name Freq PRN Reason Stop Dose Admin
Amlodipine Besylate 5 mg 06/02/25 20:00 06/03/25 08:57
Amlodipine 5 Mg Tablet PO 06/30/25 19:59 5 mg
BID MICHAEL Administration
Atenolol 50 mg 06/02/25 20:00 06/03/25 08:58
Atenolol 50 Mg Tablet PO 06/30/25 19:59 50 mg
BID MICHAEL Administration
Atorvastatin Calcium 20 mg 06/02/25 22:00 06/02/25 21:36
Atorvastatin (Lipitor) 20 Mg Tablet PO 06/30/25 21:59 20 mg
HS MICHAEL Administration
Dexamethasone Sodium Phosphate 6 mg 06/01/25 14:00 06/03/25 05:50
Dexamethasone 4 Mg/Ml 1 Ml Vial IV 06/28/25 13:59 6 mg
Q8H MICHAEL Administration
Enoxaparin Sodium 40 mg 06/01/25 18:00 06/02/25 16:45
Enoxaparin Sodium 40 Mg/0.4 Ml Syringe SC 06/29/25 17:59 40 mg
QPM MICHAEL Administration
Escitalopram Oxalate 10 mg 06/03/25 08:00 06/03/25 08:58
Escitalopram 10 Mg Tablet PO 07/01/25 07:59 10 mg
DAILY MICHAEL Administration
Folic Acid 1 mg 06/03/25 08:00 06/03/25 08:58
Folic Acid 1 Mg Tablet PO 07/01/25 07:59 1 mg
DAILY MICHAEL Administration
Folic Acid 1 mg/ Sodium 50.2 mls @ 200.8 mls/hr 05/30/25 19:21
Chloride IV 06/27/25 19:20
DAILYPRN PRN
if NPO
Parenteral Electrolytes 1,000 mls @ 100 mls/hr 06/02/25 12:45
Normosol-R/Plasmalyte-A IV 06/03/25 12:34
PER PROTOCOL MICHAEL
Labetalol HCl 10 mg 05/31/25 04:43 06/03/25 03:11
Labetalol Hcl 5 Mg/1 Ml (20 Mg/4 Ml) Injection IV 06/28/25 04:41 10 mg
Q4HPRN PRN Administration
SBP >140/DBP >90
Lacosamide 200 mg 06/02/25 16:45 06/03/25 05:50
Lacosamide (Vimpat) 200 Mg Tablet PO 06/30/25 16:44 200 mg
Q12H MICHAEL Administration
Levetiracetam 1,500 mg 06/02/25 20:00 06/03/25 08:58
Levetiracetam 500 Mg Regular Release Tablet PO 06/30/25 19:59 1,500 mg
Q12 MICHAEL Administration
Lorazepam 1 mg 05/31/25 08:45
Lorazepam 2 Mg/Ml Vial IV 06/28/25 08:44
Q4HPRN PRN
seizure
Pantoprazole Sodium 40 mg 06/03/25 08:00 06/03/25 08:58
Pantoprazole 40 Mg Delayed Release Tablet PO 07/01/25 07:59 40 mg
DAILY MICHAEL Administration
Polyethylene Glycol 17 grams 06/03/25 08:00 06/03/25 08:59
Polyethylene Glycol Powder 17 Grams Packet PO 07/01/25 07:59 17 grams
DAILY MICHAEL Administration
Sodium Chloride 0 ml 05/30/25 19:21 05/31/25 09:17
Sodium Chloride 0.9% (Preservative Free) 10 Ml Vial IV 06/27/25 19:20 0.5 ml
PRN PRN Administration
To dilute IV Ativan
Protocol
Sodium Chloride 0 flush 06/02/25 15:00
Sodium Chloride 0.9% (Flush) Syringe IV 06/30/25 14:59
PER PROTOCOL MICHAEL
Thiamine HCl 100 mg 06/02/25 20:00 06/03/25 08:57
Thiamine 100 Mg Tablet PO 06/30/25 19:59 100 mg
BID MICHAEL Administration
Valsartan 320 mg 06/03/25 08:00 06/03/25 08:58
Valsartan 160 Mg Tablet PO 07/01/25 07:59 320 mg
DAILY MICHAEL Administration
Home Medications
�Medication �Instructions �Recorded
atenolol 50 mg tablet 50 mg PO BID Blood Pressure 05/30/25
atorvastatin 20 mg tablet 20 mg PO HS High Cholesterol 05/30/25
escitalopram oxalate 10 mg tablet 10 mg PO DAILY Mental 05/30/25
Health/Anxiety
therapeutic multivitamin 1 tab PO DAILY Supplement 05/30/25
valsartan 320 mg tablet 320 mg PO DAILY Blood Pressure 05/30/25
omeprazole 40 mg capsule,delayed 40 mg PO DAILY Gastrointestinal 05/31/25
release Issue

Documented by User: Godwin Matthew MD 06/03/25 09:32
Past History
Past History
ED Past Medical History: Cancer (Squamous cell cancer), GERD, HTN, Hypercholesterolemia, Psychiatric and Other (Brain lesions bilaterally)
ED Past Surgical History: Orthopedic (Right total hip arthroscopy 2023, left total hip arthroscopy 2024), Tonsilectomy and Other (Bilateral cataract removal)
Social History
Tobacco: Non-smoker
Alcohol: Daily
Drug: None
Personal:
Living: with family
Family History
Family History: Other (Reviewed and noncontributory)
Medications
-
Medications:
Generic Name Dose Route Start Last Admin
Trade Name Freq PRN Reason Stop Dose Admin
Amlodipine Besylate 5 mg 06/02/25 20:00 06/03/25 08:57
Amlodipine 5 Mg Tablet PO 06/30/25 19:59 5 mg
BID MICHAEL Administration
Atenolol 50 mg 06/02/25 20:00 06/03/25 08:58
Atenolol 50 Mg Tablet PO 06/30/25 19:59 50 mg
BID MICHAEL Administration
Atorvastatin Calcium 20 mg 06/02/25 22:00 06/02/25 21:36
Atorvastatin (Lipitor) 20 Mg Tablet PO 06/30/25 21:59 20 mg
HS MICHAEL Administration
Dexamethasone Sodium Phosphate 6 mg 06/01/25 14:00 06/03/25 05:50
Dexamethasone 4 Mg/Ml 1 Ml Vial IV 06/28/25 13:59 6 mg
Q8H MICHAEL Administration
Enoxaparin Sodium 40 mg 06/01/25 18:00 06/02/25 16:45
Enoxaparin Sodium 40 Mg/0.4 Ml Syringe SC 06/29/25 17:59 40 mg
QPM MICHAEL Administration
Escitalopram Oxalate 10 mg 06/03/25 08:00 06/03/25 08:58
Escitalopram 10 Mg Tablet PO 07/01/25 07:59 10 mg
DAILY MICHAEL Administration
Folic Acid 1 mg 06/03/25 08:00 06/03/25 08:58
Folic Acid 1 Mg Tablet PO 07/01/25 07:59 1 mg
DAILY MICHAEL Administration
Folic Acid 1 mg/ Sodium 50.2 mls @ 200.8 mls/hr 05/30/25 19:21
Chloride IV 06/27/25 19:20
DAILYPRN PRN
if NPO
Parenteral Electrolytes 1,000 mls @ 100 mls/hr 06/02/25 12:45
Normosol-R/Plasmalyte-A IV 06/03/25 12:34
PER PROTOCOL MICHAEL
Labetalol HCl 10 mg 05/31/25 04:43 06/03/25 03:11
Labetalol Hcl 5 Mg/1 Ml (20 Mg/4 Ml) Injection IV 06/28/25 04:41 10 mg
Q4HPRN PRN Administration
SBP >140/DBP >90
Lacosamide 200 mg 06/02/25 16:45 06/03/25 05:50
Lacosamide (Vimpat) 200 Mg Tablet PO 06/30/25 16:44 200 mg
Q12H MICHAEL Administration
Levetiracetam 1,500 mg 06/02/25 20:00 06/03/25 08:58
Levetiracetam 500 Mg Regular Release Tablet PO 06/30/25 19:59 1,500 mg
Q12 MICHAEL Administration
Lorazepam 1 mg 05/31/25 08:45
Lorazepam 2 Mg/Ml Vial IV 06/28/25 08:44
Q4HPRN PRN
seizure
Pantoprazole Sodium 40 mg 06/03/25 08:00 06/03/25 08:58
Pantoprazole 40 Mg Delayed Release Tablet PO 07/01/25 07:59 40 mg
DAILY MICHAEL Administration
Polyethylene Glycol 17 grams 06/03/25 08:00 06/03/25 08:59
Polyethylene Glycol Powder 17 Grams Packet PO 07/01/25 07:59 17 grams
DAILY MICHAEL Administration
Sodium Chloride 0 ml 05/30/25 19:21 05/31/25 09:17
Sodium Chloride 0.9% (Preservative Free) 10 Ml Vial IV 06/27/25 19:20 0.5 ml
PRN PRN Administration
To dilute IV Ativan
Protocol
Sodium Chloride 0 flush 06/02/25 15:00
Sodium Chloride 0.9% (Flush) Syringe IV 06/30/25 14:59
PER PROTOCOL MICHAEL
Thiamine HCl 100 mg 06/02/25 20:00 06/03/25 08:57
Thiamine 100 Mg Tablet PO 06/30/25 19:59 100 mg
BID MICHAEL Administration
Valsartan 320 mg 06/03/25 08:00 06/03/25 08:58
Valsartan 160 Mg Tablet PO 07/01/25 07:59 320 mg
DAILY MICHAEL Administration
--- NOTE | 2025-06-03 09:17 | W.PN.PUL.V3 ---
Today's Communication / Plan
-
Supplemental oxygen as needed
Aspiration precautions
Increased mental status changes-CT chest and EEG pending
Bronchoscopy pathology pending
Assessment
-
In brief she presented to the hospital on 111 after falls. Patient had been declining over the last few days with decreased appetite as well as having difficulty with depth perception as well as falls. Workup including CT head, CTA head and neck
along with MRI brain which was suspicious for metastatic brain lesion along with a lung mass as well as mediastinal lymphadenopathy. Patient was evaluated by neurology and oncology service. Earlier in the day she was transferred to IMU for concern
of ongoing seizures and need for continuous EEG and antiseizure medications. Throughout the day patient became more lethargic, developed hypoxia and sonorous respiration and was initiated on BiPAP. Over coming hours patient continued to stay
unresponsive and then urgent critical care consult was requested. Patient was emergently evaluated and was noted to be unresponsive on BiPAP. Discussed with patient's and son at bedside who agreed with proceeding with intubation and
mechanical ventilation.
#1. Acute respiratory failure with inability to protect airway (Intubated 05/31 - Extubated 06/01)
- Respiratory failure in the setting of severe encephalopathy and inability to protect airway, high aspiration risk. Likely in the setting of seizures, postictal state and sedation related to medications
- Intubated on 05/31.
- 06/01, propofol weaned off, tolerated SAT SBT well, extubated successfully. Strong cough and gag reflex. More awake and alert.
- 06/02, awake, alert. Saturating well on room air
#2. Acute encephalopathy, newly detected seizure disorder along with suspected brain metastatic lesions with edema
- Discussed with neurology service, continue thiamine replacement, Vimpat as well as Keppra as ordered.
- CT and MRI reviewed
- Reported history of alcohol use, presentation not typical for alcohol withdrawal. Continue thiamine replacement.
- Continue IV Decadron
- 06/01. More awake, alert. Extubated.
- 06/02. Continues to have cognitive deficit.
Neuroevaluation 06/03/2025 with worsening encephalopathy-check new CT chest and EEG
Continue dexamethasone
Considering reducing antiseizure medications if above testing is negative
#3. Metastatic malignancy of unclear primary
- Right lower lobe mass and mediastinal lymphadenopathy noted on imaging, high likelihood of primary lung cancer
- Cerebral lesions likely metastasis
- Oncology service on case. D/w Dr. Blevins. In view of brain metastasis and need for expedited work up, oncology service recommends inpatient tissue sampling.
Bronchoscopy 06/02/2025-tolerated well, suspicious for malignancy-cytology and pathology pending
#4. History of alcohol use
- Continue thiamine replacement
Other medical diagnoses:
- Hypertension
- Hyperlipidemia
- History of depression
- Mild hyponatremia
SCDs for DVT prophylaxis
IV Protonix for GI prophylaxis
Data:
CT Head 05/2025: Stable appearance of CT of the head compared to most recent unenhanced CT of May 30, 2025.
CTA head/Neck 05/2025: No evidence of acute vascular pathology.
Incompletely imaged right lower lobe pleural-based mass consistent with malignancy until proven otherwise.
Moderate mediastinal lymphadenopathy and several tiny bilateral upper lobe pulmonary nodules suggesting metastatic disease.
Significant bilateral parietal lobe vasogenic edema with mass effect and probable underlying masses likely metastatic disease considering the above findings. The patient is scheduled for MRI examination today.
Multilevel degenerative disease. Progressed at all levels
Mild reversal of cervical spinal lordosis. This can be seen with spasm. New
Mild atrophy.
MRI Brain 05/2025: 3 enhancing lesions as described, one centered in the posterior right parietal lobe, one at the left parieto-occipital junction, and a third small enhancing lesion within the posterior and medial left parietal lobe. Extensive
white matter edema within the parietal and occipital lobes, slightly greater on the right compared to the left.
Findings very likely represents metastatic disease to the brain, somewhat unusual distribution. Other differential considerations would seem to be significantly less likely. This would be an atypical appearance for abscesses, although could still be
considered. Multifocal primary brain neoplasm such as glioblastoma multiforme could be considered.
Subjective Data
-
Date of Service:
Date of Service: June 03, 2025
Chief Complaint: Pulmonary Follow Up and Dyspnea Follow Up
Subjective:
Received Ativan overnight, somewhat lethargic, arousable, no respiratory distress
Review of Systems
General: Other (Per HPI)
Objective Data
Data Reviewed
Vital Signs / I&O:
Vital Signs
Temp Pulse Resp BP Pulse Ox
98.2 F 87 18 172/83 93
06/03/25 07:44 06/03/25 08:58 06/03/25 07:44 06/03/25 08:58 06/03/25 07:44
Intake and Output
06/02/25 06/03/25 06/04/25
06:59 06:59 06:59
Intake Total 1694.4 / 1744.4 1170 / 1170
Output Total 736 / 756 143 / 143
Balance 958.4 / 988.4 1027 / 1027
SaO2: 93
Nasal Cannula flow liters per minute: 3
Physical Exam
General: Respiratory Distress (n) and Comfortable
HEENT: Normocephalic, Anicteric and Moist Mucous Membranes
Cardiovascular: Regular Rhythm
Respiratory: Crackles (n), Rhonchi (n), Non-Labored Respirations, Accessory Resp Muscle Use (n) and Stridor (n)
GI: Soft, Non Distended and Non Tender
Neurology: Awake, Alert and No Motor Deficits
Skin: Warm, Good Color, Cyanosis (n), Jaundice (n) and Rash (n)
Labs/Micro/Reports
Lab Data
06/03/25 06:38
06/03/25 06:38
Microbiology
06/02/25 14:43 Bronch Right Lower Lobe Gram Stain - Preliminary
06/02/25 14:43 Bronch Right Lower Lobe Fungal Culture - Preliminary
Culture in progress.
Positive cultures are reported as soon as detected.
Final report to follow in four to five weeks.
--- NOTE | 2025-06-03 11:37 | W.PN.HOSP.TC ---
Today's Communication/Plan
-
Patient with confusion, undergoing EEG, repeat CTh. Right paratracheal LN biopsy path pending.
Assessment / Plan
Assessment / Plan
64F with HTN, HLD, EtOH use daily, P/W falls, decreased depth perception over several months.
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
Seizure
Acute metabolic encephalopathy
Acute neurodeficits including left side weakness and seizure on 05/31, Loaded with IV Keppra, IV Ativan, IV Decadron, was still seizing on EEG, leading to acute encephalopathy, hypoxia, unable to protect airway. Was intubated 05/31, now extubated
06/01.
Continue maintenance Keppra, lacosamide and dexamethasone 6 mg IV every 8
Close monitoring, as needed IV Ativan
Neurology consulted, discussed with Dr. Matthew, repeating CT and EEG 06/03 due to acute worsening encephalopathy. Possible reduction of antiseizure medicine in case this is contributing to confusion.
Workup of lesions as below
Suspected metastatic lung cancer
Metastatic cancer most likely lung primary based on imaging
CT chest/abdomen/pelvis performed, there is a pleural mass in the right lower lobe, and multiple tiny pulmonary nodules. Had a mammogram last year that did not show any evidence of malignancy
Oncology consulted, patient will likely need biopsy of pleural mass and outpt brain radiation. Pulm/cc consulted, underwent inpt bronchoscopy on 06/02, R paratracheal LN biopsied, abnormal cells on rapid onsite eval. RLL BAL and endobronchial
brushings also obtained.
Pathology pending
HTN urgency
BP elevated on admit required multiple doses of IV labetalol
Remains elevated
Continue p.o. valsartan, atenolol, amlodipine. Adjust as needed for BP control.
Goal BP less than 140s
Alcohol use disorder
Transaminitis
[address] A/P shows severe hepatic fatty infiltration
Continue thiamine, continue folate, monitor for alcohol withdrawal, on protocol, no e/o w/d
HLD
Statin
Depression
Escitalopram
Hypokalemia�resolved
Hyponatremia�resolved
Anemia
Hgb dropped from 11.3-9.7, for now we will monitor, normal B12/folate/high ferritin
DVT PPx
Lovenox
DNR
Anticipated Discharge: > 48 hours
Subjective/Interval History
-
Date of Service: June 03, 2025
Patient seen while getting EEG, she denies any acute issues, denies headache. Per report patient was more confused than previously, at the time of my visit patient was about the same as the day before.
Objective Data
-
Labs:
Laboratory Results
06/03/25
06:38
WBC 5.4
Hgb 9.7 L
Hct 29.1 L
Plt Count 232
Sodium 136
Potassium 3.6
Chloride 102
Carbon Dioxide 27
BUN 19 H
Creatinine 0.7
Glucose 114 H
Calcium 8.6
Total Bilirubin 0.6
AST 92 H
ALT 67 H
Alkaline Phosphatase 103
Vital Signs:
Vital Signs
Temp Pulse Resp BP Pulse Ox
98.2 F 87 18 172/83 93
06/03/25 07:44 06/03/25 08:58 06/03/25 07:44 06/03/25 08:58 06/03/25 09:17
I&O
06/02/25 06/03/25 06/04/25
06:59 06:59 06:59
Intake Total 1694.4 / 1744.4 1170 / 1170
Output Total 736 / 756 143 / 143
Balance 958.4 / 988.4 1027 / 1027
Review of Systems
-
History Source: Patient
All other systems: Reviewed and negative
Physical Exam
-
General: No Apparent Distress and Conversant
HEENT: Moist Mucous Membranes and Other (Patient has eyes closed due to undergoing EEG)
Respiratory: Rhonchi and Non Labored Respirations; Negative Accessory Resp Muscle Use
GI: Soft, Nontender, Nondistended and Normal Bowel Sounds
Musculoskeletal: No Edema
Skin: Warm and Dry; Negative Rash or Ulcers
Neuro: Awake, Alert, Oriented (To self, hospital) and Other (Did not perform strength testing as patient was undergoing EEG and was instructed not to move around)
Psych: Calm and Intact Judgement/Insight
Data Reviewed
-
CT Scan: Image personally visualized and interpreted, Report Reviewed by me, Discussed with Physician, Discussed with Nurse, Discussed with Patient and Discussed with Family
MRI: Image personally visualized and interpreted, Report Reviewed by me, Discussed with Physician, Discussed with Nurse, Discussed with Patient and Discussed with Family
Labs: Labs Reviewed by me, Discussed with Physician and Discussed with Family
Old Records: Reviewed
--- NOTE | 2025-06-03 12:33 | EEG.RPT ---
Electroencephalogram Report
Recording
Date of EE06/03/25
Type of EEG: Routine
Length of EEG recordin minutes
Done with Video Recording: Yes
Patient Status: Inpatient
Recording Conditions: Awake, Drowsy and Asleep
Hyperventilation Performed: No
Photic Stimulation Performed: Yes
Report
GREATER THAN 1 HOUR EEG INTERPRETATION:
Moderately to severely abnormal EEG for age due to diffuse bihemispheric slowing and mild interhemispheric asymmetry with greater slowing from the right hemisphere
CLINICAL CORRELATION:
This study was suggestive of diffuse cortical dysfunction without focal abnormality. No seizures were recorded. In comparison with the study performed 06/01/2025, this study has slightly worsened and that there is less evidence of a well-organized
background and greater cortical slowing was demonstrated
Clinical correlation is advised.
METHODS:
A 21 channel digitized electroencephalogram (EEG) was performed in the [facility]. The 10/20 international system of electrode placement was used with ECG and lateral/vertical eye movements recorded.
QUALITY OF STUDY:
Fair
ELECTROENCEPHALOGRAPHER IMPRESSION(S):
Background
Medium amplitude
Organization of anterior-posterior voltage gradient: Fair
Maximal activity: Theta
There were no significant asymmetries of background activity noted.
Sleep
Drowsiness present
Stage II sleep was characterized by sleep spindles
Photic Stimulation
Failed to activate the record
ECG
Normal sinus rhythm
Abnormal activity: There were every other second intermittent rhythmic delta activity bursts greater seen from the right hemisphere than the left.
[2025-06-03 17:20] LABS: Glucose - Point of Care 106 mg/dl (70-99)
[2025-06-03] MEDS: LOVENOX 40 MG SC (18:33)
[2025-06-03] MEDS: KEPPRA 1000 MG PO (21:08)
[2025-06-03] MEDS: LIPITOR 20 MG PO (21:09)
--- NOTE | 2025-06-04 01:49 | PTCARENOTE ---
Patient has an order for bipap with continuos pulse ox for tonight. [place]on texted RT as patient doesn't have either. Patient refused bipap earlier as per RT. Patient is sleeping at this time.
[2025-06-04 03:28] VITALS: BP 148/74
[2025-06-04] MEDS: VIMPAT 200 MG PO ×2 (04:15→15:45)
[2025-06-04] MEDS: DECADRON 6 MG IV ×3 (06:07→21:34)
[2025-06-04 07:13] LABS: Hematocrit 31.0 % (37.0-47.0); Hemoglobin 10.8 g/dL (12.0-16.0); Mean Corp Hgb Conc. 34.8 g/dL (33.0-37.0); Mean Corpuscular Volume 98.4 fL (81.0-99.0); Nucleated Red Blood Cells % 0 %; Platelet Count 271 10^3/uL (130-400); Red Cell Dist. Width 12.5 % (11.5-14.5)
--- NOTE | 2025-06-04 07:48 | W.PN.HOSP.TC ---
Today's Communication/Plan
-
Confusion improving. Continue antiseizure meds at adjusted dose
BP elevated, add chlorthalidone.
Continue Decadron.
Pap still pending
Assessment / Plan
Assessment / Plan
64F with HTN, HLD, EtOH use daily, P/W falls, decreased depth perception over several months.
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
Seizure
Acute metabolic encephalopathy
Acute neurodeficits including left side weakness and seizure on 05/31, Loaded with IV Keppra, IV Ativan, IV Decadron, was still seizing on EEG, leading to acute encephalopathy, hypoxia, unable to protect airway. Was intubated 05/31, now extubated
06/01.
Continue maintenance Keppra, lacosamide, dose adjusted to minimize CARDIAC CATH RN depression
Continue dexamethasone 6 mg IV every 8
Close monitoring, as needed IV Ativan
Neurology consulted, discussed with Dr. Matthew, repeated CT and EEG 06/03 due to acute worsening encephalopathy. CTh unchanged. Confusion improved with reduction of antiseizure medicine.
Workup of lesions as below
Suspected metastatic lung cancer
Metastatic cancer most likely lung primary based on imaging, 3 mets to brain
CT chest/abdomen/pelvis performed, there is a pleural mass in the right lower lobe, and multiple tiny pulmonary nodules. Had a mammogram last year that did not show any evidence of malignancy
Oncology consulted, patient will likely need biopsy of pleural mass and outpt brain radiation. Pulm/cc consulted, underwent inpt bronchoscopy on 06/02, R paratracheal LN biopsied, abnormal cells on rapid onsite eval. RLL BAL and endobronchial
brushings also obtained.
Pathology pending
HTN urgency
BP elevated on admit required multiple doses of IV labetalol
Remains elevated
Continue p.o. valsartan, atenolol, amlodipine. Added chlorthalidone. Adjust as needed for BP control.
Goal BP less than 140s
Alcohol use disorder
Transaminitis
[address] A/P shows severe hepatic fatty infiltration
Continue thiamine, continue folate, monitor for alcohol withdrawal, on protocol, no e/o w/d
HLD
Statin
Depression
Escitalopram
Hypokalemia�resolved
Hyponatremia�resolved
Anemia
Hgb dropped from 11.3-9.7, for now we will monitor, normal B12/folate/high ferritin
DVT PPx
Lovenox
DNR
Anticipated Discharge: > 48 hours
Subjective/Interval History
-
Date of Service: June 04, 2025
Patient denies any acute issues overnight, states weakness feels improved, states peripheral vision on right is improved, still with deficit on left side vision, feels alert, denies confusion/fogginess, and son at bedside, state mental
status is mostly improved, only some episodes of mild confusion
Objective Data
-
Labs:
Laboratory Results
06/04/25
06:29
WBC 5.4
Hgb 10.8 L
Hct 31.0 L
Plt Count 271
Sodium Pending
Potassium Pending
Chloride Pending
Carbon Dioxide Pending
BUN Pending
Creatinine Pending
Glucose Pending
Calcium Pending
Total Bilirubin Pending
AST Pending
ALT Pending
Alkaline Phosphatase Pending
Vital Signs:
Vital Signs
Temp Pulse Resp BP Pulse Ox
97.6 F 75 16 148/74 94
06/04/25 03:05 06/04/25 03:05 06/04/25 03:05 06/04/25 03:28 06/04/25 03:05
I&O
06/03/25 06/04/25 06/05/25
06:59 06:59 06:59
Intake Total 1170 / 1170 480 / 480
Output Total 143 / 143
Balance 1027 / 1027 480 / 480
Review of Systems
-
History Source: Patient
All other systems: Reviewed and negative
Physical Exam
-
General: No Apparent Distress and Conversant
HEENT: Moist Mucous Membranes, Anicteric, PERRLA and Other
Respiratory: Clear to Auscultation and Non Labored Respirations; Negative Wheezes, Rales, Rhonchi or Accessory Resp Muscle Use
Cardiac: Regular Rhythm and S1/S2; Negative Murmur, Rub or Gallop
GI: Soft, Nontender, Nondistended and Normal Bowel Sounds
Musculoskeletal: No Edema
Skin: Warm and Dry; Negative Rash, Ulcers or Lesions
Neuro: Awake, Alert, AO x 3 and Other (Strength 5/ 5 BUE/BLE, EOMI, does not track well to the left side, but can move independently. Left pronator drift.)
Psych: Calm and Intact Judgement/Insight
Data Reviewed
-
CT Scan: Image personally visualized and interpreted, Report Reviewed by me, Discussed with Physician, Discussed with Nurse, Discussed with Patient and Discussed with Family
MRI: Image personally visualized and interpreted, Report Reviewed by me, Discussed with Physician, Discussed with Nurse, Discussed with Patient and Discussed with Family
Labs: Labs Reviewed by me, Discussed with Physician and Discussed with Family
Old Records: Reviewed
[2025-06-04 07:57] LABS: ALT (SGPT) 90 U/L (0-35); AST (SGOT) 114 U/L (14-36); Albumin 3.8 g/dl (3.5-5.0); Alkaline Phosphatase 124 U/L (38-126); Blood Urea Nitrogen 15 mg/dl (7-17); Calcium 9.2 mg/dl (8.4-10.2); Carbon Dioxide 25 mmol/L (22-30); Chloride 101 mmol/L (98-107); Estimated Creatinine Clearance 81 ml/min; Glucose 125 mg/dl (70-99); Potassium 3.6 mmol/L (3.5-5.1); Sodium 132 mmol/L (135-145); Total Protein 6.6 g/dl (6.3-8.2); eGFR > 60.00
[2025-06-04] MEDS: KEPPRA 1000 MG PO ×2 (08:18→19:39)
[2025-06-04] MEDS: FOLVITE 1 MG PO (08:18)
[2025-06-04] MEDS: PROTONIX 40 MG PO (08:18)
[2025-06-04] MEDS: VITAMIN B1 100 MG PO ×2 (08:20→19:39)
[2025-06-04] MEDS: LEXAPRO 10 MG PO (08:20)
[2025-06-04] MEDS: MIRALAX 17 GRAMS PO (08:20)
[2025-06-04 08:29] VITALS: BP 174/106
[2025-06-04] MEDS: NORVASC 5 MG PO ×2 (08:29→19:40)
[2025-06-04] MEDS: DIOVAN 320 MG PO (08:30)
[2025-06-04] MEDS: TENORMIN 50 MG PO ×2 (08:30→19:40)
--- NOTE | 2025-06-04 10:23 | W.PN.NEURO.1 ---
Addendum entered and electronically signed by Cornelius Moreno MD 06/06/25 07:53:
Patient noted to have 'left' not 'right' hemiparesis as stated below.
Original Note:
Today's Communication / Plan
-
No changes to current plan, continue dexamethasone and anti-seizure medications.
Neuro Assessment/Plan
Assessment
IMPRESSIONS/RECOMMENDATIONS:
Ms. Zahra Aleman is a 64 F with H alcohol use disorder, depression, presenting with abrupt onset of gait difficulty, depth perception difficulty and falling, found to have multiple bilateral posterior parieto-occipital contrast-enhancing
lesions with surrounding vasogenic edema, most consistent with metastases (suspect lung based on CT chest, however pending confirmation). She was also noted to have several events potentially concerning for seizures including acute confusional
episodes with left gaze preference and left arm tremor. EEG thus far with occipital right > left intermittent rhythmic delta activity, however no seizures. She has since been started on dexamethasone, levetiracetam, and lacosamide.
On today's exam, she appears relatively improved in comparison to prior, alert, only mildly disoriented to time, with left inferior quadrantanopsia and mild right hemiparesis. These deficits are most likely explained by her right parietal-occipital
lesion, with surrounding vasogenic edema. Interval head CT relatively stable, with no evidence of hydrocephalus. Would favor continuing current medical regimen as of now, with close monitoring for recurrent seizures or neuorological worsening.
Additional potential contributory factors to encephalopathy include resolving hyponatremia (suspect 2/2 SIADH) and EtOH use/withdrawal/Wernicke's (on empiric thiamine repletion).
-CT head 05/30/25: Pronounced hypoattenuation centered within the white matter of the parieto-occipital lobes. 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 Mild cerebral atrophy and mild small vessel change.
-CTA head/neck 05/30/25: No evidence of acute vascular pathology. Incompletely imaged right lower lobe pleural-based mass consistent with malignancy until proven otherwise. Moderate mediastinal lymphadenopathy and several tiny bilateral upper lobe
pulmonary nodules suggesting metastatic disease. Significant bilateral parietal lobe vasogenic edema with mass effect and probable underlying masses likely metastatic disease considering the above findings. Multilevel degenerative disease.
Progressed at all levels Mild reversal of cervical spinal lordosis. This can be seen with spasm. New. Mild atrophy.
-MRI brain 05/30/25: 3 enhancing lesions as described, one centered in the posterior right parietal lobe, one at the left parieto-occipital junction, and a third small enhancing lesion within the posterior and medial left parietal lobe. Extensive
white matter edema within the parietal and occipital lobes, slightly greater on the right compared to the left. Findings very likely represents metastatic disease to the brain, somewhat unusual distribution. Other differential considerations would
seem to be significantly less likely. This would be an atypical appearance for abscesses, although could still be considered. Multifocal primary brain neoplasm such as glioblastoma multiforme could be considered.
- CT head 06/03/24: stable vasogenic edema.
Patient initiated on dexamethasone 05/30/2025
Patient initiated on levetiracetam 05/31/2025 followed by lacosamide
Continuous EEG monitoring started 05/31/2025 indicated occipital intermittent rhythmic delta activity.
Plan
- Continue levetiracetam 1000 mg twice a day
- Continue lacosamide 200 mg twice a day, can consider down-taper in future if continues clinical improvemnet
- Continue high-dose dexamethasone 6 mg every 8 hours
- Continue thiamine replacement.
- No indication for repeat EEG or head imaging as of now, however continue to alert neurology and likely repeat head CT for any flucutations in mentation.
- For acute seizures - ativan 2 mg PRN, if refractory, then load with levetiracetam 3000 mg, increase standing to 1500 mg twice daily
- Appreciate oncology evaluation. 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
- Seizure precautions
- Rehabilitation evaluations and treatment
Subjective/Objective
Subjective Data
Date of Service: June 04, 2025
- Bronchoscopy and LN biopsy performed, pending results
- Completed EEG with right > left posteior ryhtmic delta activity, however no seizures. Head CT stable.
- Continued on levetiracetam 1000 mg BID and lacosamide 200 mg BID, dexamethasone 6mg q8h.
- Today, reports feeling well, denies recent seizure-like activity or confusion. Notes stable left visual field deficits and left sided weakness.
Objective Data
Vital Signs
Temp Pulse Resp BP Pulse Ox
37.1 C 72 16 174/106 95
06/04/25 08:29 06/04/25 08:30 06/04/25 08:29 06/04/25 08:30 06/04/25 08:29
Lab Results
06/04/25 06:29
06/04/25 06:29
PT 14.2 Sec (11.4-14.6) 05/31/25 21:25
INR 1.07 05/31/25 21:25
APTT 27.0 Sec (23.4-35.0) 05/31/25 21:25
Sodium 132 mmol/L (135-145) L 06/04/25 06:29
Potassium 3.6 mmol/L (3.5-5.1) 06/04/25 06:29
BUN 15 mg/dl (7-17) 06/04/25 06:29
Glucose 125 mg/dl (70-99) H 06/04/25 06:29
Calcium 9.2 mg/dl (8.4-10.2) 06/04/25 06:29
Phosphorus 4.1 mg/dl (2.5-4.5) 05/30/25 13:16
Vitamin B12 868 pg/ml (239-931) 06/01/25 03:53
Ur Buprenorphine Negative (Negative) 05/30/25 15:28
Laboratory Tests
06/03/25 06/04/25
06:38 06:29
AST 114 H
ALT 67 H
Patient Allergies
Sulfa (Sulfonamide Antibiotics) Allergy (Verified 05/30/25 12:05)
Rash
NCHCT (06/03/25) Stable posterior vasogenic edema surrounding presumed metatstatic lesions
MRI brain with and without contrast (05/30/25) - reviewed, at least 3 bilateral posterior parieto-occipital contrast-enhancing T2/FLAIR hyperintense lesions with surrounding vasogenic edema, most consistent with metastases
Review of Systems
-
All other systems: Reviewed and negative
Constitutional: No Symptoms
Physical Exam
-
General: Well Developed, Well Nourished and No Apparent Distress
Extended Neurological Exam
Mood & Affect: Mood Unremarkable
Attention Span & Concentration: Awake, Alert (Orietned to place, and partially to time (' but not year - ), ) and Other (States days of the week forwards and backwards, follows 1- and 2-step commands. No apraxia. )
Memory: Able to Recall (2/3 words after 5 minutes, improved to 3/3 with category cueing. )
Tremor: Hand Tremor Absent
Involuntary Movement: None
Speech: Quality Unremarkable
Cranial Nerve II: Left Eye: Pupillary Size Unremarkable and Other (Left inferior quadrantanopia. )
Cranial Nerve II: Right Eye: Other (Left inferior quadrantanopia. )
Cranial Nerve V: Facial Sensation: Intact to Light Touch
Cranial Nerve VII: Facial Symmetry: Normal Facial Symmetry
Cranial Nerve VIII: Hearing: Unremarkable Hearing to Normal Conversational Volume
Cranial Nerves IX, X: Palate Movement: Palate Elevation Symmetric
Cranial Nerve XI: Shoulder Shrug: Unremarkable
Cranial Nerve XII: Tongue Protusion: Midline
Muscle Strength, Overall: Reduced on Right and Reduced on Left (4/5 in LUE throughout )
Muscle Bulk & Tone: Bulk Unremarkable
Pronator Drift: Drift in Left Upper Extremity
Deep Tendon Reflexes: 3+
Touch Sensation: Testing in Upper Extremities and Unremarkable
Data Reviewed
-
CT Head: Image Reviewed ([facility]: extensive white matter edema involving the parietal and occipital lobes bilaterally, right greater than left, unchanged. )
MRI Head: Image Reviewed (MRI brain 05/30 at least 3 bilateral posterior parieto-occipital T2/FLAIR hyperintense lesions with surrounding vasogenic edema, consistent with metastases)
EEG: Report Reviewed (EEG (1h) 06/03 There were every other second intermittent rhythmic delta activity bursts greater seen from the right hemisphere than the left.)
[2025-06-04 11:36] VITALS: BP 151/94
[2025-06-04 16:45] VITALS: BP 177/97
[2025-06-04] MEDS: LOVENOX 40 MG SC (18:49)
[2025-06-04 19:40] VITALS: BP 171/95
[2025-06-04] MEDS: LIPITOR 20 MG PO (21:34)
--- NOTE | 2025-06-04 22:36 | RESPNOTE ---
RN notified me that patient had a BIPAP order. Spoke with patient and patient 'did not understand why it was being ordered'. Pt would like to speak to ordering doctor tomorrow before going forward with wearing BIPAP. RN was bedside.
[2025-06-04] MEDS: TRANDATE 10 MG IV (23:39)
[2025-06-05] VITALS (10 sets, daily range): BP systolic 123–180; BP diastolic 79–98; PULSE 2–75
--- NOTE | 2025-06-05 02:48 | PTCARENOTE ---
Addendum entered by Ankita Tidwell RN 06/05/25 05:55:
Administered PRN Labetalol IV / 0800am Amlodipine at this time per PROJECTOR OPERATOR advise.
Addendum entered by Ankita Tidwell RN 06/05/25 05:42:
Upon rechecking, her bp 198/100. asymptomatic. House provider made aware. Administered 0800am Diovan at this time per advise.
Original Note:
Patients Bp- 180/98 ( manual), HR- 78. For 180/100 bp Labetalol 10mg IV given earlier with no effect. House provider made aware. See MAR for new orders.
[2025-06-05] MEDS: APRESOLINE 5 MG IV (02:53)
[2025-06-05] MEDS: DECADRON 6 MG IV ×3 (05:24→21:21)
[2025-06-05] MEDS: VIMPAT 200 MG PO ×2 (05:24→17:05)
[2025-06-05] MEDS: DIOVAN 320 MG PO (05:36)
[2025-06-05] MEDS: TRANDATE 10 MG IV ×2 (05:48→15:18)
[2025-06-05] MEDS: NORVASC 5 MG PO (05:49)
[2025-06-05 07:15] LABS: Hematocrit 29.7 % (37.0-47.0); Hemoglobin 10.6 g/dL (12.0-16.0); Mean Corp Hgb Conc. 35.7 g/dL (33.0-37.0); Mean Corpuscular Volume 98.7 fL (81.0-99.0); Nucleated Red Blood Cells % 0 %; Platelet Count 286 10^3/uL (130-400); Red Cell Dist. Width 12.0 % (11.5-14.5)
--- NOTE | 2025-06-05 07:30 | W.PN.HOSP.TC ---
Today's Communication/Plan
-
BP elevated, increased chlorthalidone.
Continue Decadron.
Path still pending
Assessment / Plan
Assessment / Plan
64F with HTN, HLD, EtOH use daily, P/W falls, decreased depth perception over several months.
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
Seizure like activity
Acute metabolic encephalopathy
Acute neurodeficits including left side weakness and seizure on 05/31, Loaded with IV Keppra, IV Ativan, IV Decadron, was still seizing on EEG, leading to acute encephalopathy, hypoxia, unable to protect airway. Was intubated 05/31, now extubated
06/01.
Neurology consulted
Continue AEDs, maintenance Keppra, lacosamide, dose adjusted to minimize COSMETIC MAKER depression
Continue dexamethasone 6 mg IV every 8 for vasogenic edema
Close monitoring, as needed IV Ativan
Repeated CT and EEG 06/03 due to acute worsening encephalopathy. CTh unchanged. Confusion improved with reduction of antiseizure medicine. Noted bilateral [id number] to dysmetria
Workup of lesions as below
Suspected metastatic lung cancer
Metastatic cancer most likely lung primary based on imaging, 3 mets to brain
CT chest/abdomen/pelvis performed, there is a pleural mass in the right lower lobe, and multiple tiny pulmonary nodules. Had a mammogram last year that did not show any evidence of malignancy
Oncology consulted, patient will likely need biopsy of pleural mass and outpt brain radiation. Pulm/cc consulted, underwent inpt bronchoscopy on 06/02, R paratracheal LN biopsied, abnormal cells on rapid onsite eval. RLL BAL and endobronchial
brushings also obtained.
Pathology pending
HTN urgency
BP elevated on admit required multiple doses of IV labetalol
Remains elevated >180s
Continue p.o. valsartan, atenolol, amlodipine. Change amlodipine to 10 mg once daily, increase chlorthalidone to 25 mg. Adjust as needed for BP control.
Goal BP less than 140s
Alcohol use disorder
Transaminitis
[address] A/P shows severe hepatic fatty infiltration
Continue thiamine, continue folate, monitor for alcohol withdrawal, on protocol, no e/o w/d
HLD
Statin
Depression
Escitalopram
Hypokalemia�replete with oral K
Hyponatremia�resolved
Anemia
Hgb dropped from 11.3-9.7, for now we will monitor, normal B12/folate/high ferritin
DVT PPx
Lovenox
DNR
Anticipated Discharge: > 48 hours
Subjective/Interval History
-
Date of Service: June 05, 2025
Patient states she feels restless overnight, but denies headache or pain. at bedside. She denies any changes in her neuro symptoms, no new weakness.
Objective Data
-
Labs:
Laboratory Results
06/05/25
06:50
WBC 5.3
Hgb 10.6 L
Hct 29.7 L
Plt Count 286
Sodium Pending
Potassium Pending
Chloride Pending
Carbon Dioxide Pending
BUN Pending
Creatinine Pending
Glucose Pending
Calcium Pending
Total Bilirubin Pending
AST Pending
ALT Pending
Alkaline Phosphatase Pending
Vital Signs:
Vital Signs
Temp Pulse Resp BP Pulse Ox
98.9 F 84 18 152/86 93
06/05/25 02:56 06/05/25 05:36 06/05/25 02:56 06/05/25 06:33 06/05/25 02:56
I&O
06/04/25 06/05/25 06/06/25
06:59 06:59 06:59
Intake Total 480 / 480 960 / 960
Balance 480 / 480 960 / 960
Review of Systems
-
History Source: Patient
All other systems: Reviewed and negative
Physical Exam
-
General: No Apparent Distress and Conversant
HEENT: Moist Mucous Membranes, Anicteric, PERRLA and Other
Respiratory: Clear to Auscultation and Non Labored Respirations; Negative Wheezes, Rales, Rhonchi or Accessory Resp Muscle Use
Cardiac: Regular Rhythm and S1/S2; Negative Murmur, Rub or Gallop
GI: Soft, Nontender, Nondistended and Normal Bowel Sounds
Musculoskeletal: No Edema
Skin: Warm and Dry; Negative Rash, Ulcers or Lesions
Neuro: Awake, Alert, AO x 3 and Other (Strength 5/ 5 BUE/BLE, EOMI, does not track well to the left side, but can move eye to the left independently. Left pronator drift. Bilateral [id number] dysmetria.)
Psych: Calm and Intact Judgement/Insight
Data Reviewed
-
CT Scan: Image personally visualized and interpreted, Report Reviewed by me, Discussed with Physician, Discussed with Nurse, Discussed with Patient and Discussed with Family
MRI: Image personally visualized and interpreted, Report Reviewed by me, Discussed with Physician, Discussed with Nurse, Discussed with Patient and Discussed with Family
Labs: Labs Reviewed by me, Discussed with Physician and Discussed with Family
Old Records: Reviewed
[2025-06-05 07:36] LABS: ALT (SGPT) 104 U/L (0-35); AST (SGOT) 99 U/L (14-36); Albumin 3.6 g/dl (3.5-5.0); Alkaline Phosphatase 138 U/L (38-126); Blood Urea Nitrogen 15 mg/dl (7-17); Calcium 9.4 mg/dl (8.4-10.2); Carbon Dioxide 30 mmol/L (22-30); Chloride 98 mmol/L (98-107); Estimated Creatinine Clearance 81 ml/min; Glucose 131 mg/dl (70-99); Potassium 3.1 mmol/L (3.5-5.1); Sodium 132 mmol/L (135-145); Total Protein 6.3 g/dl (6.3-8.2); eGFR > 60.00
[2025-06-05] MEDS: PROTONIX 40 MG PO (08:24)
[2025-06-05] MEDS: KEPPRA 1000 MG PO ×2 (08:24→19:55)
[2025-06-05] MEDS: FOLVITE 1 MG PO (08:24)
[2025-06-05] MEDS: VITAMIN B1 100 MG PO ×2 (08:24→19:55)
[2025-06-05] MEDS: TENORMIN 50 MG PO ×2 (08:25→19:55)
[2025-06-05] MEDS: LEXAPRO 10 MG PO (08:25)
[2025-06-05] MEDS: MIRALAX 17 GRAMS PO (08:25)
[2025-06-05] MEDS: NORVASC 10 MG PO (08:29)
[2025-06-05] MEDS: KCL 40 MEQ PO (09:42)
[2025-06-05] MEDS: LOVENOX 40 MG SC (17:05)
[2025-06-05] MEDS: LIPITOR 20 MG PO (21:22)
[2025-06-06] VITALS (11 sets, daily range): BP systolic 131–177; BP diastolic 86–105; PULSE 2–88; O2SAT 98
[2025-06-06] MEDS: TRANDATE 10 MG IV ×3 (00:53→16:12)
[2025-06-06] MEDS: VIMPAT 200 MG PO ×2 (04:53→16:12)
[2025-06-06] MEDS: DECADRON 6 MG IV ×3 (05:00→21:15)
[2025-06-06 06:31] LABS: Purkinje Cell/Neuronal Nuc IgG None Detected (None Detected)
[2025-06-06 06:35] LABS: Hematocrit 33.8 % (37.0-47.0); Hemoglobin 11.6 g/dL (12.0-16.0); Mean Corp Hgb Conc. 34.3 g/dL (33.0-37.0); Mean Corpuscular Volume 98.5 fL (81.0-99.0); Nucleated Red Blood Cells % 0 %; Platelet Count 347 10^3/uL (130-400); Red Cell Dist. Width 12.5 % (11.5-14.5)
[2025-06-06 07:07] LABS: ALT (SGPT) 107 U/L (0-35); AST (SGOT) 89 U/L (14-36); Albumin 4.1 g/dl (3.5-5.0); Alkaline Phosphatase 119 U/L (38-126); Blood Urea Nitrogen 18 mg/dl (7-17); Calcium 9.9 mg/dl (8.4-10.2); Carbon Dioxide 31 mmol/L (22-30); Chloride 97 mmol/L (98-107); Estimated Creatinine Clearance 81 ml/min; Glucose 134 mg/dl (70-99); Potassium 4.2 mmol/L (3.5-5.1); Sodium 133 mmol/L (135-145); Total Protein 6.7 g/dl (6.3-8.2); eGFR > 60.00
[2025-06-06] MEDS: KEPPRA 1000 MG PO ×2 (07:49→19:58)
[2025-06-06] MEDS: FOLVITE 1 MG PO (07:50)
[2025-06-06] MEDS: VITAMIN B1 100 MG PO ×2 (07:51→19:58)
[2025-06-06] MEDS: TENORMIN 50 MG PO ×2 (07:51→19:58)
[2025-06-06] MEDS: LEXAPRO 10 MG PO (07:51)
[2025-06-06] MEDS: PROTONIX 40 MG PO (07:51)
[2025-06-06] MEDS: NORVASC 10 MG PO (07:52)
[2025-06-06] MEDS: DIOVAN 320 MG PO (07:52)
[2025-06-06] MEDS: MIRALAX 17 GRAMS PO (07:52)
--- NOTE | 2025-06-06 10:03 | W.PN.PUL3 ---
Today's Communication / Plan
-
Pathology still pending as of 06/06
She has plans for transfer to [place] per primary team, does not require pathology results before transfer
We can call with results when they are finalized, discussed with patient
Awaiting transfer bed, we will sign off at this time-please call with questions
Assessment
-
In brief she presented to the hospital on 1117 after falls. Patient had been declining over the last few days with decreased appetite as well as having difficulty with depth perception as well as falls. Workup including CT head, CTA head and neck
along with MRI brain which was suspicious for metastatic brain lesion along with a lung mass as well as mediastinal lymphadenopathy. Patient was evaluated by neurology and oncology service. Earlier in the day she was transferred to IMU for concern
of ongoing seizures and need for continuous EEG and antiseizure medications. Throughout the day patient became more lethargic, developed hypoxia and sonorous respiration and was initiated on BiPAP. Over coming hours patient continued to stay
unresponsive and then urgent critical care consult was requested. Patient was emergently evaluated and was noted to be unresponsive on BiPAP. Discussed with patient's and son at bedside who agreed with proceeding with intubation and
mechanical ventilation.
#1. Acute respiratory failure with inability to protect airway (Intubated 05/31 - Extubated 06/01)
#2. Acute encephalopathy, newly detected seizure disorder along with suspected brain metastatic lesions with edema
#3. Metastatic malignancy of unclear primary
Other medical diagnoses:
Hypertension
Hyperlipidemia
History of depression
Mild hyponatremia
Renal insufficiency
GERD
Squamous cell skin ca lip-surgical removal (1996)
Tonsillectomy
Cataracts BL
Right JONATHAN SDS, DOS 07.13.2024 CBB
Left JONATHAN CBB 10/12/24
Plan
Intubation, hypoxia- Respiratory failure in the setting of severe encephalopathy and inability to protect airway, high aspiration risk. Likely in the setting of seizures, postictal state and sedation related to medications
Intubated on 11/18.
06/01, propofol weaned off, tolerated SAT SBT well, extubated successfully. Strong cough and gag reflex. More awake and alert.
06/02, awake, alert. Saturating well on room air
Change in MS- - Discussed with neurology service, continue thiamine replacement, Vimpat as well as Keppra as ordered.
- CT and MRI reviewed
- Reported history of alcohol use, presentation not typical for alcohol withdrawal. Continue thiamine replacement.
- Continue IV Decadron
- 06/01. More awake, alert. Extubated.
- 06/02. Continues to have cognitive deficit.
Neuro-evaluation 06/03/2025 with worsening encephalopathy-check new CT chest and EEG
Continue dexamethasone
Considering reducing antiseizure medications if above testing is negative
Right lower lobe mass and mediastinal lymphadenopathy noted on imaging, high likelihood of primary lung cancer
Cerebral lesions likely metastasis
Oncology service on case. D/w Dr. Blevins. In view of brain metastasis and need for expedited work up, oncology service recommends inpatient tissue sampling.
Bronchoscopy 06/02/2025-tolerated well, suspicious for malignancy-cytology and pathology pending
History of alcohol use
- Continue thiamine replacement
SCDs for DVT prophylaxis
IV Protonix for GI prophylaxis
Data:
CT Head 05/2025: Stable appearance of CT of the head compared to most recent unenhanced CT of May 30, 2025.
CTA head/Neck 05/2025: No evidence of acute vascular pathology.
Incompletely imaged right lower lobe pleural-based mass consistent with malignancy until proven otherwise.
Moderate mediastinal lymphadenopathy and several tiny bilateral upper lobe pulmonary nodules suggesting metastatic disease.
Significant bilateral parietal lobe vasogenic edema with mass effect and probable underlying masses likely metastatic disease considering the above findings. The patient is scheduled for MRI examination today. Multilevel degenerative disease.
Progressed at all levels. Mild reversal of cervical spinal lordosis. This can be seen with spasm. New. Mild atrophy.
MRI Brain 05/2025: 3 enhancing lesions as described, one centered in the posterior right parietal lobe, one at the left parieto-occipital junction, and a third small enhancing lesion within the posterior and medial left parietal lobe. Extensive
white matter edema within the parietal and occipital lobes, slightly greater on the right compared to the left. Findings very likely represents metastatic disease to the brain, somewhat unusual distribution. Other differential considerations would
seem to be significantly less likely. This would be an atypical appearance for abscesses, although could still be considered. Multifocal primary brain neoplasm such as glioblastoma multiforme could be considered.
Total time spent on this consultation/encounter __45__ minutes which includes review of history, physical exam, medications, laboratory data, personal review of imaging, extensive review of outpatient records, discussion with care team and
respiratory therapy.
Subjective Data
-
Date of Service:
Date of Service: June 06, 2025
Chief Complaint: Pulmonary Follow Up and Dyspnea Follow Up
Subjective:
No new complaints, remains stable
Objective Data
Data Reviewed
Vital Signs / I&O / Oxygen:
Vital Signs
Temp Pulse Resp BP Pulse Ox
98.7 F 74 16 134/91 97
06/06/25 08:01 06/06/25 09:33 06/06/25 03:40 06/06/25 09:33 06/06/25 08:01
Intake and Output
06/05/25 06/06/25 06/07/25
06:59 06:59 06:59
Intake Total 960 / 960 1140 / 1140
Balance 960 / 960 1140 / 1140
SaO2 [CPAP/PSV] 97
SaO2 [A/C] 98
SaO2 97
Nasal Cannula flow liters per 3
minute
Physical Exam
General: Respiratory Distress (n) and Comfortable
HEENT: Normocephalic, Anicteric and Moist Mucous Membranes
Cardiovascular: Regular Rhythm
Respiratory: Crackles (n), Rhonchi (n), Non-Labored Respirations, Accessory Resp Muscle Use (n) and Stridor (n)
GI: Soft, Non Distended and Non Tender
Neurology: Awake, Alert and No Motor Deficits
Skin: Warm, Good Color, Cyanosis (n), Jaundice (n) and Rash (n)
Labs/Micro/Reports
Lab Data
06/06/25 05:44
06/06/25 05:44
Microbiology
06/02/25 14:43 Bronch Right Lower Lobe Respiratory Culture - Final
Usual Respiratory Luh
06/02/25 14:43 Bronch Right Lower Lobe Gram Stain - Final
--- NOTE | 2025-06-06 12:16 | W.PN.HOSP.TC ---
Addendum entered and electronically signed by Rajiv Diez DO 06/06/25 14:02:
More than 35 minutes spent in discharge process including coordinating care, discussing case with [facility] transfer center, accepting physician, family, other consultants.
Original Note:
Today's Communication/Plan
-
Await transfer
Assessment / Plan
Assessment / Plan
Gen-AAOx3, NAD
HEENT-NC, AT, anicteric, clear oral mm
Neck-supple
CV-reg, no M, +S1/S2
Lungs-clear B/L
Abd-soft, NT, ND
Ext-no edema
Musculoskeletal-no cyanosis, clubbing
Skin-warm and dry
Neuro-grossly non-focal
Psych-calm, cooperative
64F with HTN, HLD, EtOH use daily, P/W falls, decreased depth perception over several months.
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
Seizure like activity
Acute metabolic encephalopathy
Acute neurodeficits including left side weakness and seizure on 05/31, Loaded with IV Keppra, IV Ativan, IV Decadron, was still seizing on EEG, leading to acute encephalopathy, hypoxia, unable to protect airway. Was intubated 05/31, now extubated
06/01.
Neurology consulted
Continue AEDs, maintenance Keppra, lacosamide, dose adjusted to minimize RESIDENT CARE SUPERVISOR depression
Continue dexamethasone 6 mg IV every 8 for vasogenic edema
Close monitoring, as needed IV Ativan
Repeated CT and EEG 06/03 due to acute worsening encephalopathy. CTh unchanged. Confusion improved with reduction of antiseizure medicine. Noted bilateral [id number] to dysmetria
Workup of lesions as below
RESIDENT CARE SUPERVISOR lesions -differential diagnosis of metastatic cancer versus primary brain cancer. Discussed with oncology today, Dr. Vasques.
Case reviewed with radiation oncology (Dr. Cifuentes), recommendation for transfer to [facility] for neurosurgical opinion.
CT chest/abdomen/pelvis performed, there is a pleural mass in the right lower lobe, and multiple tiny pulmonary nodules. Had a mammogram last year that did not show any evidence of malignancy
Pulm/cc consulted, underwent inpt bronchoscopy on 06/02, R paratracheal LN biopsied, abnormal cells on rapid onsite eval. RLL BAL and endobronchial brushings also obtained.
Pathology pending
Essential hypertension, HTN urgency
BP elevated on admit required multiple doses of IV labetalol
Remains elevated >180s
Continue p.o. valsartan, atenolol, amlodipine. Change amlodipine to 10 mg once daily, increase chlorthalidone to 25 mg. Adjust as needed for BP control.
Goal BP less than 140s
Alcohol use disorder
Acute alcohol induced hepatitis
[address] A/P shows severe hepatic fatty infiltration
Continue thiamine, continue folate, monitor for alcohol withdrawal, on protocol, no e/o w/d
Hyperlipidemia
Statin
Depression
Escitalopram
Hypokalemia�improved.
Hyponatremia-sodium 133.
Chronic anemia -macrocytic. B12, folic acid normal. Ferritin 424.
DVT PPx
Lovenox
DNR
Dispo -patient has been accepted in transfer to [facility], Dr. Morales. Reason is for neurosurgical opinion.
Updated at the bedside.
Anticipated Discharge: Within 24 hours
Subjective/Interval History
-
Date of Service: June 06, 2025
Patient seen and examined, no change in her visual deficits.
Objective Data
-
Labs:
Laboratory Results
06/06/25
05:44
WBC 6.5
Hgb 11.6 L
Hct 33.8 L
Plt Count 347 D
Sodium 133 L
Potassium 4.2 D
Chloride 97 L
Carbon Dioxide 31 H
BUN 18 H
Creatinine 0.6
Glucose 134 H
Calcium 9.9
Total Bilirubin 0.6
AST 89 H
ALT 107 H
Alkaline Phosphatase 119
Vital Signs:
Vital Signs
Temp Pulse Resp BP Pulse Ox
98.3 F 64 18 131/86 97
06/06/25 11:30 06/06/25 11:30 06/06/25 11:30 06/06/25 11:30 06/06/25 11:30
I&O
06/05/25 06/06/25 06/07/25
06:59 06:59 06:59
Intake Total 960 / 960 1140 / 1140
Balance 960 / 960 1140 / 1140
Review of Systems
-
History Source: Patient
All other systems: Reviewed and negative
--- NOTE | 2025-06-06 12:30 | W.PN.ONC2 ---
Addendum entered and electronically signed by Lisa Solis MD 06/07/25 08:35:
transfer to [facility] noted. Oncology will sign off, please call w/ questions.
Original Note:
Today's Communication / Plan
-
Transfer to [facility] for brain biopsy and consider of resection of the 3 lesions.
Impression
Impression
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
lung/arron masses in the chest
Alcohol use, h/o remote smoking.
Plan
Plan
Dexamethasone 8mg IV q8hr
AEDs per neurology
Flms reivewed: Lung 'nodules' are extremely small and non-specific. She has probable stage III lung cancer other than these tiny nodules and the brain lesions. She is in good health other than alcoholism.
Neurology has noted previously that location/distribution of brain lesions is 'somewat unusual' for met disease
Case reviewed with rad Onc: ' The brain masses look very necrotic with a lot of swelling, need brain biopsy to verify that it is not a glioma as appearance is more consistent with primary brain tumor.'
Case d/w Dr. Diez, transfer to [facility] for Neurosurgery eval.
Subjective/Objective
Chief Complaint
Heme/Onc follow up of lung and brain masses
Subjective
Still with difficulties ambulating.
Vital Signs:
Vital Signs
Temp Pulse Resp BP Pulse Ox
98.3 F 64 18 131/86 97
06/06/25 11:30 06/06/25 11:30 06/06/25 11:30 06/06/25 11:30 06/06/25 11:30
Lab Results:
Laboratory Data
WBC 6.5 10^3/uL (4.8-10.8) 06/06/25 05:44
Hgb 11.6 g/dL (12.0-16.0) L 06/06/25 05:44
Plt Count 347 10^3/uL (130-400) D 06/06/25 05:44
PT 14.2 Sec (11.4-14.6) 05/31/25 21:25
INR 1.07 05/31/25 21:25
APTT 27.0 Sec (23.4-35.0) 05/31/25 21:25
eGFR > 60.00 06/06/25 05:44
Physical Exam
Awake, alert, interactive
--- NOTE | 2025-06-06 14:01 | CM ---
CM reviewed chart
Plan noted for transfer to [facility] for neurosurgery eval
CM will remain available for dc planning
Discharge Disposition- transfer to [facility]
--- NOTE | 2025-06-06 14:01 | W.DS.TRANS ---
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
-
Discharge Instructions:
Discharge Diagnosis/Procedures Brain lesions
Diet Regular
Activity As tolerated
Driving Restrictions No driving
Bathing Restrictions None
Instructions:
Stand-Alone Forms:
Changes to Home Medications: No
Discharge Medications:
DC Medications w/original date entered in [facility]
atenolol 50 mg tablet 50 mg PO BID Blood Pressure 05/30/25
atorvastatin 20 mg tablet 20 mg PO HS High Cholesterol 05/30/25
escitalopram oxalate 10 mg tablet 10 mg PO DAILY Mental Health/Anxiety 05/30/25
therapeutic multivitamin 1 tab PO DAILY Supplement 05/30/25
valsartan 320 mg tablet 320 mg PO DAILY Blood Pressure 05/30/25
omeprazole 40 mg capsule,delayed release 40 mg PO DAILY Gastrointestinal Issue 05/31/25
Home Medication Changes
Pending Results: No
--- NOTE | 2025-06-06 15:27 | W.PN.NEURO.1 ---
Today's Communication / Plan
-
On today's exam, the patient is alert and oriented x 3, her speech is clear and she does not have any gross focal weakness. The cranial nerves II through XII are grossly intact. The patient does not have limb ataxia.
. Oncology has seen the patient and have recommended Decadron 8 mg IV every 8 hours. There is a concern for lung cancer. Oncology is also recommended brain biopsy for the lesion in the brain.
. The the plan is to transfer the patient to [facility] for neurosurgery evaluation.
. Continue Keppra and Vimpat.
Will sign off. Please call if you have any question.
Neuro Assessment/Plan
Assessment
IMPRESSIONS/RECOMMENDATIONS:
Ms. Zahra Aleman is a 64 F with H alcohol use disorder, depression, presenting with abrupt onset of gait difficulty, depth perception difficulty and falling, found to have multiple bilateral posterior parieto-occipital contrast-enhancing
lesions with surrounding vasogenic edema, most consistent with metastases (suspect lung based on CT chest, however pending confirmation). She was also noted to have several events potentially concerning for seizures including acute confusional
episodes with left gaze preference and left arm tremor. EEG thus far with occipital right > left intermittent rhythmic delta activity, however no seizures. She has since been started on dexamethasone, levetiracetam, and lacosamide.
On today's exam, she appears relatively improved in comparison to prior, alert, only mildly disoriented to time, with left inferior quadrantanopsia and mild right hemiparesis. These deficits are most likely explained by her right parietal-occipital
lesion, with surrounding vasogenic edema. Interval head CT relatively stable, with no evidence of hydrocephalus. Would favor continuing current medical regimen as of now, with close monitoring for recurrent seizures or neuorological worsening.
Additional potential contributory factors to encephalopathy include resolving hyponatremia (suspect 2/2 SIADH) and EtOH use/withdrawal/Wernicke's (on empiric thiamine repletion).
-CT head 05/30/25: Pronounced hypoattenuation centered within the white matter of the parieto-occipital lobes. 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 Mild cerebral atrophy and mild small vessel change.
-CTA head/neck 05/30/25: No evidence of acute vascular pathology. Incompletely imaged right lower lobe pleural-based mass consistent with malignancy until proven otherwise. Moderate mediastinal lymphadenopathy and several tiny bilateral upper lobe
pulmonary nodules suggesting metastatic disease. Significant bilateral parietal lobe vasogenic edema with mass effect and probable underlying masses likely metastatic disease considering the above findings. Multilevel degenerative disease.
Progressed at all levels Mild reversal of cervical spinal lordosis. This can be seen with spasm. New. Mild atrophy.
-MRI brain 05/30/25: 3 enhancing lesions as described, one centered in the posterior right parietal lobe, one at the left parieto-occipital junction, and a third small enhancing lesion within the posterior and medial left parietal lobe. Extensive
white matter edema within the parietal and occipital lobes, slightly greater on the right compared to the left. Findings very likely represents metastatic disease to the brain, somewhat unusual distribution. Other differential considerations would
seem to be significantly less likely. This would be an atypical appearance for abscesses, although could still be considered. Multifocal primary brain neoplasm such as glioblastoma multiforme could be considered.
- CT head 06/03/24: stable vasogenic edema.
Patient initiated on dexamethasone 05/30/2025
Patient initiated on levetiracetam 05/31/2025 followed by lacosamide
Continuous EEG monitoring started 05/31/2025 indicated occipital intermittent rhythmic delta activity.
Plan
- Continue levetiracetam 1000 mg twice a day
- Continue lacosamide 200 mg twice a day, can consider down-taper in future if continues clinical improvemnet
- Continue high-dose dexamethasone 6 mg every 8 hours
- Continue thiamine replacement.
- No indication for repeat EEG or head imaging as of now, however continue to alert neurology and likely repeat head CT for any flucutations in mentation.
- For acute seizures - ativan 2 mg PRN, if refractory, then load with levetiracetam 3000 mg, increase standing to 1500 mg twice daily
- Appreciate oncology evaluation. 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
- Seizure precautions
- Rehabilitation evaluations and treatment
Subjective/Objective
Subjective Data
Date of Service: June 06, 2025
The patient was seen and examined.
Ms. Zahra Aleman is a 64 F with H alcohol use disorder, depression, presenting with abrupt onset of gait difficulty, depth perception difficulty and falling, found to have multiple bilateral posterior parieto-occipital contrast-enhancing
lesions with surrounding vasogenic edema, most consistent with metastases (suspect lung based on CT chest, however pending confirmation). She was also noted to have several events potentially concerning for seizures including acute confusional
episodes with left gaze preference and left arm tremor. EEG thus far with occipital right > left intermittent rhythmic delta activity, however no seizures. She has since been started on dexamethasone, levetiracetam, and lacosamide.
-CT head 05/30/25: Pronounced hypoattenuation centered within the white matter of the parieto-occipital lobes. 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 Mild cerebral atrophy and mild small vessel change.
-CTA head/neck 05/30/25: No evidence of acute vascular pathology. Incompletely imaged right lower lobe pleural-based mass consistent with malignancy until proven otherwise. Moderate mediastinal lymphadenopathy and several tiny bilateral upper lobe
pulmonary nodules suggesting metastatic disease. Significant bilateral parietal lobe vasogenic edema with mass effect and probable underlying masses likely metastatic disease considering the above findings. Multilevel degenerative disease.
Progressed at all levels Mild reversal of cervical spinal lordosis. This can be seen with spasm. New. Mild atrophy.
-MRI brain 05/30/25: 3 enhancing lesions as described, one centered in the posterior right parietal lobe, one at the left parieto-occipital junction, and a third small enhancing lesion within the posterior and medial left parietal lobe. Extensive
white matter edema within the parietal and occipital lobes, slightly greater on the right compared to the left. Findings very likely represents metastatic disease to the brain, somewhat unusual distribution. Other differential considerations would
seem to be significantly less likely. This would be an atypical appearance for abscesses, although could still be considered. Multifocal primary brain neoplasm such as glioblastoma multiforme could be considered.
- CT head 06/03/24: stable vasogenic edema.
On today's exam, the patient is alert and oriented x 3, her speech is clear and she does not have any gross focal weakness. The cranial nerves II through XII are grossly intact. The patient does not have limb ataxia.
. Oncology has seen the patient and have recommended Decadron 8 mg IV every 8 hours. There is a concern for lung cancer. Oncology is also recommended brain biopsy for the lesion in the brain.
. The the plan is to transfer the patient to [facility] for neurosurgery evaluation.
. Continue Keppra and Vimpat.
Objective Data
Vital Signs
Temp Pulse Resp BP Pulse Ox
36.8 C 64 18 131/86 97
06/06/25 11:30 06/06/25 11:30 06/06/25 11:30 06/06/25 11:30 06/06/25 11:30
Lab Results
06/06/25 05:44
06/06/25 05:44
PT 14.2 Sec (11.4-14.6) 05/31/25 21:25
INR 1.07 05/31/25 21:25
APTT 27.0 Sec (23.4-35.0) 05/31/25 21:25
Sodium 133 mmol/L (135-145) L 06/06/25 05:44
Potassium 4.2 mmol/L (3.5-5.1) D 06/06/25 05:44
BUN 18 mg/dl (7-17) H 06/06/25 05:44
Glucose 134 mg/dl (70-99) H 06/06/25 05:44
Calcium 9.9 mg/dl (8.4-10.2) 06/06/25 05:44
Phosphorus 4.1 mg/dl (2.5-4.5) 05/30/25 13:16
Vitamin B12 868 pg/ml (239-931) 06/01/25 03:53
Ur Buprenorphine Negative (Negative) 05/30/25 15:28
Patient Allergies
Sulfa (Sulfonamide Antibiotics) Allergy (Verified 05/30/25 12:05)
Rash
[2025-06-06] MEDS: LOVENOX 40 MG SC (17:16)
[2025-06-06] MEDS: LIPITOR 20 MG PO (21:16)
[2025-06-07 03:07] VITALS: BP 167/83
[2025-06-07] MEDS: VIMPAT 200 MG PO ×2 (04:42→16:58)
[2025-06-07] MEDS: DECADRON 6 MG IV ×2 (05:18→15:00)
[2025-06-07 08:15] VITALS: BP 197/105
[2025-06-07] MEDS: FOLVITE 1 MG PO (08:50)
[2025-06-07] MEDS: KEPPRA 1000 MG PO (08:50)
[2025-06-07] MEDS: VITAMIN B1 100 MG PO (08:50)
[2025-06-07] MEDS: LEXAPRO 10 MG PO (08:50)
[2025-06-07] MEDS: PROTONIX 40 MG PO (08:50)
[2025-06-07] MEDS: DIOVAN 320 MG PO (08:51)
[2025-06-07] MEDS: MIRALAX 17 GRAMS PO (08:51)
[2025-06-07] MEDS: TENORMIN 50 MG PO (08:58)
[2025-06-07] MEDS: NORVASC 10 MG PO (08:58)
[2025-06-07 11:51] VITALS: BP 112/66
--- NOTE | 2025-06-07 12:50 | W.PN.HOSP.TC ---
Today's Communication/Plan
-
Await transfer
Assessment / Plan
Assessment / Plan
Gen-AAOx3, NAD
HEENT-NC, AT, anicteric, clear oral mm
Neck-supple
CV-reg, no M, +S1/S2
Lungs-clear B/L
Abd-soft, NT, ND
Ext-no edema
Musculoskeletal-no cyanosis, clubbing
Skin-warm and dry
Neuro-grossly non-focal, mildly tremulous in hands with arms extended
Psych-calm, cooperative
64F with HTN, HLD, EtOH use daily, P/W falls, decreased depth perception over several months.
[employer] lesions with vasogenic edema
Seizure like activity
Acute metabolic encephalopathy
Acute neurodeficits including left side weakness and seizure on 05/31, Loaded with IV Keppra, IV Ativan, IV Decadron, was still seizing on EEG, leading to acute encephalopathy, hypoxia, unable to protect airway. Was intubated 05/31, now extubated
06/01.
Neurology consulted
Continue AEDs, maintenance Keppra, lacosamide, dose adjusted to minimize [employer] depression
Continue dexamethasone 6 mg IV every 8 for vasogenic edema
Close monitoring, as needed IV Ativan
Repeated CT and EEG 06/03 due to acute worsening encephalopathy. CTh unchanged. Confusion improved with reduction of antiseizure medicine. Noted bilateral [id number] to dysmetria
Workup of lesions as below
[employer] lesions -suspect metastatic lung cancer. Path report from lymph node biopsy via bronchoscopy positive for malignant cells consistent with adenocarcinoma, compatible with lung origin. Awaiting lung molecular panel and PD-L1. Received [place]
text from pathology.
Case reviewed with radiation oncology (Dr. Cifuentes), recommendation for transfer to [facility] for neurosurgical opinion. Spoke with [facility] June 06, excepted under the service of Dr. Morales.
CT chest/abdomen/pelvis performed, there is a pleural mass in the right lower lobe, and multiple tiny pulmonary nodules. Had a mammogram last year that did not show any evidence of malignancy
Pulm/cc consulted, underwent inpt bronchoscopy on 06/02, R paratracheal LN biopsied, abnormal cells on rapid onsite eval. RLL BAL and endobronchial brushings also obtained.
Pathology pending
Essential hypertension, HTN urgency
Overall trend of blood pressure has improved although some of the readings remain elevated.
May have a component of alcohol withdrawal induced hypertension. She does have mild tremors on exam.
Continue amlodipine, atenolol, valsartan, chlorthalidone.
Alcohol use disorder
Acute alcohol induced hepatitis
[address] A/P shows severe hepatic fatty infiltration
Continue thiamine, continue folate, monitor for alcohol withdrawal, on protocol, no e/o w/d
Hyperlipidemia
Statin
Depression
Escitalopram
Hypokalemia�improved.
Hyponatremia-sodium 133.
Chronic anemia -macrocytic. B12, folic acid normal. Ferritin 424.
DVT PPx
Lovenox
DNR
Dispo -awaiting transfer to [facility].
Anticipated Discharge: Within 24 hours
Subjective/Interval History
-
Date of Service: June 07, 2025
Patient seen and examined. No new complaints. No change in her vision.
Objective Data
-
Vital Signs:
Vital Signs
Temp Pulse Resp BP Pulse Ox
97.9 F 63 24 112/66 96
06/07/25 11:51 06/07/25 11:51 06/07/25 11:51 06/07/25 11:51 06/07/25 11:51
I&O
06/06/25 06/07/25 06/08/25
06:59 06:59 06:59
Intake Total 1140 / 1140 1680 / 1680
Balance 1140 / 1140 1680 / 1680
Review of Systems
-
History Source: Patient
All other systems: Reviewed and negative
--- NOTE | 2025-06-07 15:20 | CM ---
Pt planned for transfer to [facility] will arrange for transport
Discharge Disposition- transfer to [facility]
[2025-06-07 16:19] VITALS: BP 131/77
[2025-06-07] MEDS: LOVENOX 40 MG SC (16:59)
[2025-06-07 19:29] VITALS: BP 120/90
== END 2025-06-07 19:39 | disposition short-term general hospital (02) | DRG 54 ==
LOC: 2 NORTH 14:03
PROVIDERS: Internal Medicine; Nurse Practitioner Family; Nurse Practitioner Primary Care; Physician Assistant; ADMITTING PHYSICIAN Hospitalist; ATTENDING PHYSICIAN Hospitalist; CONSULT PHYSICIAN Psychiatry & Neurology Neurology; EMERGENCY PHYSICIAN Emergency Medicine; FAMILY PHYSICIAN Internal Medicine; OTHER PHYSICIAN Internal Medicine; OTHER PHYSICIAN Internal Medicine Hematology & Oncology
PROC: 5A09357 Assistance with Respiratory Ventilation, Less than 24 Consecutive Hours, Continuous Positive Airway Pressure (ICD-10-PCS; 2025-05-31)
PROC: 0BH17EZ Insertion of Endotracheal Airway into Trachea, Via Natural or Artificial Opening (ICD-10-PCS; 2025-05-31)
PROC: 5A1935Z Respiratory Ventilation, Less than 24 Consecutive Hours (ICD-10-PCS; 2025-05-31)
PROC: 07D78ZX Extraction of Thorax Lymphatic, Via Natural or Artificial Opening Endoscopic, Diagnostic (ICD-10-PCS; 2025-06-02)
PROC: 0BD68ZX Extraction of Right Lower Lobe Bronchus, Via Natural or Artificial Opening Endoscopic, Diagnostic (ICD-10-PCS; 2025-06-02)
PROC: 0B9F8ZX Drainage of Right Lower Lung Lobe, Via Natural or Artificial Opening Endoscopic, Diagnostic (ICD-10-PCS; 2025-06-02)
DX: C79.31 Secondary malignant neoplasm of brain (principal); G93.41 Metabolic encephalopathy; G93.6 Cerebral edema; J96.01 Acute respiratory failure with hypoxia; C34.31 Malignant neoplasm of lower lobe, right bronchus or lung; C77.1 Secondary and unspecified malignant neoplasm of intrathoracic lymph nodes; E87.1 Hypo-osmolality and hyponatremia; Z66 Do not resuscitate; E78.00 Pure hypercholesterolemia, unspecified; D64.9 Anemia, unspecified; F10.20 Alcohol dependence, uncomplicated; I10 Essential (primary) hypertension; R29.6 Repeated falls; S50.311A Abrasion of right elbow, initial encounter; E87.6 Hypokalemia; K70.10 Alcoholic hepatitis without ascites; F32.A Depression, unspecified; G40.909 Epilepsy, unspecified, not intractable, without status epilepticus; I16.0 Hypertensive urgency; N28.9 Disorder of kidney and ureter, unspecified; K21.9 Gastro-esophageal reflux disease without esophagitis; W10.9XXA Fall (on) (from) unspecified stairs and steps, initial encounter; Y90.0 Blood alcohol level of less than 20 mg/100 ml; Z79.899 Other long term (current) drug therapy; Z87.891 Personal history of nicotine dependence; Z91.81 History of falling
CPT/HCPCS: 36600; 70450; 70496; 70498; 70553; 71045; 71250; 74018; 74177; 80048; 80053; 80306; 82010; 82077; 82248; 82607; 82728; 82746; 82805; 82962; 82977; 83735; 84100; 84443; 84478; 85025; 85027; 85610; 85652; 85730; 86140; 86255; 87015; 87070; 87102; 87116; 87205; 88112; 88173; 88305; 92526; 92610; 93005; 94002; 94003; 94640; 94660; 95714; 95813; 95816; 96360; 97116; 97163; 97167; 97530; 97535; 99285; A9575; C9254; Q9967